=== PATIENT | female | born 1960 | race Caucasian/White ===

== ENCOUNTER → 2017-11-08 15:45 | Outpatient (CLI) | payer BC, SELFPAY ==
--- NOTE | 2017-11-08 15:50 | RAD_ITS ---
STUDY: X-RAY CHEST REASON FOR EXAM: Female, 57 years old. COPD TECHNIQUE: Frontal and lateral views of the chest. COMPARISON: 03.09.17 FINDINGS: Cervical spinal fixation hardware is noted. There is hyperinflation of the lungs consistent with chronic obstructive lung disease (COPD). There is endplate spondylosis of the vertebral body. There is no demonstrated pleural abnormality. Normal size heart. Normal mediastinum and meggan. Normal visualized pulmonary arteries. Normal visualized aortic arch and descending thoracic aorta. Normal visualized thoracic spine. Normal visualized ribs, clavicles, and shoulders. There is no demonstrated abnormality of the visualized soft tissue structures of the upper abdomen. RAD/Chest PA and Lateral IMPRESSION: COPD Electronically Signed: Konrad Reynolds MD at 19:43 EDT , Service support ,
== END ==
PROVIDERS: Family Provider Family Medicine; PCP Family Medicine; Visit Provider Family Medicine
DX: J44.9 Chronic obstructive pulmonary disease, unspecified (principal)
CPT/HCPCS: 71046

== ENCOUNTER → 2018-01-22 14:25 | Outpatient (CLI) | payer BC, SELFPAY ==
--- NOTE | 2018-01-22 14:32 | BI_ITS ---
MAMMOGRAPHY - BILATERAL SCREENING REASON FOR EXAM: Female, 57 years old. Routine annual screening examination. PERTINENT HISTORY: Non-contributory. Around breast implants. TECHNIQUE: Digital bilateral breast rodney (3D mammographic acquisition) in the CC and MLO projections. 2-D mediolateral oblique (MLO) and craniocaudad (CC) views of both breasts were obtained. CAD: Full Field Digital Mammography with Computer Added Detection was performed. COMPARISON: Comparison is made with prior study dated November 19, 2014 and July 05, 2011. FINDINGS: Breast Composition: The breasts are heterogeneously dense, which may obscure small masses. There are no dominant masses or suspicious calcifications. Stable appearance of the bilateral breast implants. No other significant abnormalities are identified. There has been no significant change since the prior study. BI/SCREENING MAMM (CAD), BILAT IMPRESSION: Stable bilateral screening mammogram. Yearly follow-up mammogram recommended. (A) ASSESSMENT CATEGORY: BIRADS Category 2: Benign. A letter regarding these results will be sent to the patient by the facility within 30 days. Approximately 10% of breast cancers are not detected by mammography. A normal mammogram should not delay biopsy of a clinically suspicious abnormality. [id number] Electronically Signed: Kavin Acosta MD at 8:17 EDT Tel [phone], Service support ,
--- NOTE | 2018-01-22 14:32 | BD_ITS ---
STUDY: DUAL ENERGY X-RAY ABSORPTIOMETRY / DXA REASON FOR EXAM: Female, 57 years old. Early menopause. Loss of height. TECHNIQUE: Bone Mineral Density (BMD) measurements of lumbar spine and bilateral hips were obtained. COMPARISON: None. FINDINGS: Lumbar Spine (L1-L4): g/cm2 (1.238) / T-score (0.5) / Z-score (1.7) Findings are suggestive of normal bone density with a low fracture risk. Left Femur Total: g/cm2 (0.818) / T-score (-1.5) / Z-score (-0.6) Left Femoral Neck: g/cm2 (0.757) / T-score (-2.0) / Z-score (-0.8) Right Femur Total: g/cm2 (0.848) / T-score (-1.3) / Z-score (-0.4) Right Femoral Neck: g/cm2 (0.804) / T-score (-1.7) / Z-score (-0.5) BD/Dexa Bone Density Study IMPRESSION: The patient is considered osteopenic as outlined below according to World [place] [employer] Organization (WHO) criteria with a moderate fracture risk. Reference Information: The T-score is the number of standard deviations above or below the standard which is normal for young adults at their peak bone mineral density. The World Health Organization (WHO) interprets the T-scores as follows: Above -1 Normal bone density Between -1 and -2.5 Osteopenia Equal to / or below -2.5 Osteoporosis As a practical clinical guideline, osteopenia may be graded as follows: Mild -1 through -1.5 Moderate -1.6 through -2.0 Severe -2.1 through -2.4 The Z-score is the number of standard deviations above or below age-matched controls. A Z-score of less than -1.5 would be considered abnormal. References: 1. NIH Osteoporosis and Related Bone Diseases http://www.osteo.org 2. International Society for Clinical Densitometry http://www.iscd.org 3. National Osteoporosis Foundation http://www.nof.org Electronically Signed: Kavin Acosta MD at 10:29 EDT Tel [phone], Service support ,
== END ==
PROVIDERS: Family Provider Family Medicine; PCP Family Medicine; Visit Provider Family Medicine
DX: Z12.31 Encounter for screening mammogram for malignant neoplasm of breast (principal); M85.80 Other specified disorders of bone density and structure, unspecified site
CPT/HCPCS: 77063; 77067; 77080

== ENCOUNTER → 2018-09-10 14:49 | Outpatient (CLI) | payer BC, SELFPAY ==
--- NOTE | 2018-09-10 15:15 | RAD_ITS ---
STUDY: X-RAY CHEST REASON FOR EXAM: Female, 58 years old. Chronic airway obstruction. TECHNIQUE: 11/08/2017 COMPARISON: None. FINDINGS: There is hyperinflation of the lungs consistent with chronic obstructive lung disease (COPD). No infiltrates or effusions. There is no demonstrated pleural abnormality. Normal size heart. Normal mediastinum and meggan. Normal visualized pulmonary arteries. Normal visualized aortic arch and descending thoracic aorta. Normal visualized thoracic spine. Previous cervical spine surgery. Normal visualized ribs, clavicles, and shoulders. There is no demonstrated abnormality of the visualized soft tissue structures of the upper abdomen. RAD/Chest PA and Lateral IMPRESSION: There are findings consistent with COPD. There is no evidence of acute chest disease. Electronically Signed: Riaz Rodriguez MD at 23:57 EST , Service support ,
[2018-09-10 18:11] LABS: Absolute Lymphocyte Count 3.15 X10^3/ul (0.83-4.51); Absolute Neutrophil Count 5.2 X10^3/uL (2.0-7.7); Basophil# 0.05 X10^3/uL; Basophil% 0.6 % (0-1); Eosinophil# 0.09 X10^3/uL; Hematocrit 41.7 % (37-47); Lymphocyte # 3.15 X10^3/ul (4.0); Lymphocyte % 34.7 % (19-41); Mean Corp Hgb Conc 33.6 g/gl (32-36); Mean Corpuscular Hgb 31.6 pg (27.0-32.0); Mean Corpuscular Volume 94.1 fL (81-99); Mean Platelet Vol. 10.9 fl (6.2-12.0); Monocyte# 0.55 X10^3/uL; Monocyte% 6.1 % (0-10); Neutrophil # 5.23 X10^3/uL (2.7-7.7); Neutrophil % 57.5 % (47-70); Platelet Count 238 K/mm3 (150-450); RBC Distribution Width CV 12.6 % (11.6-14.6); RBC Distribution Width SD 42.5 fl (35.1-43.9); Red Blood Count 4.43 M/mm3 (4.2-5.4); White Blood Count 9.1 K/mm3 (4.4-11.0)
[2018-09-10 18:17] LABS: POSITIVE COUNT NO; POSITIVE DIFFERENTIAL NO; POSITIVE MORPHOLOGY NO
[2018-09-10 19:17] LABS: Vitamin D,25 Hydroxy 43.3 ng/mL (29.95-100.01)
[2018-09-10 19:37] LABS: Anion Gap 9 (5-15); BUN 12 mg/dL (7-18); BUN/Creat Ratio 16.6 RATIO (10-20); Calcium,Total 9.3 mg/dL (8.5-10.1); Chloride 107 mmol/L (98-107); Creatinine, Serum 0.72 mg/dL (0.55-1.02); EST Glomerular Filtration Rate 87 mL/min (>60); Est Glom Filt Rate - Afr Amer 105 mL/min (>60); Glucose 88 mg/dL (74-106); Sodium Level 143 mmol/L (136-145); Thyroid Stim Hormone (TSH) 0.83 uIU/mL (0.358-3.74)
== END ==
PROVIDERS: Family Provider Family Medicine; PCP Family Medicine; Referring Provider Family Medicine; Visit Provider Family Medicine
DX: J44.9 Chronic obstructive pulmonary disease, unspecified (principal); G95.9 Disease of spinal cord, unspecified; R32 Unspecified urinary incontinence; R26.81 Unsteadiness on feet
CPT/HCPCS: 36415; 71046; 80048; 82306; 84443; 85025

== ENCOUNTER → 2018-09-28 08:56 | Outpatient (CLI) | payer BC, SELFPAY ==
--- NOTE | 2018-09-28 08:00 | CT_ITS ---
STUDY: CT CHEST WITHOUT CONTRAST REASON FOR EXAM: Female, 58 years old. Left-sided chest pain. History of prior breast augmentation. RADIATION DOSAGE (If Supplied By Facility): CTDIvol = ( 7.69 ) mGy, DLP = ( 313.35 ) mGycm TECHNIQUE: Transaxial imaging was performed without the administration of intravenous contrast material. Multiplanar coronal and sagittal images were reformatted. Individualized dose optimization techniques were used for this CT. COMPARISON: Chest, September 10, 2018. CT of the chest, December 30, 2015. FINDINGS: Lungs are hyperexpanded. There is no focal mass or infiltrate. There is no demonstrated pleural abnormality. Normal heart and pericardium. Minimal coronary artery calcifications. Normal mediastinum. Normal hilar regions. Normal unenhanced pulmonary arteries. Normal aorta arch and descending thoracic aorta. There are minimal degenerative changes of the thoracic spine without fracture. There is anterior fusion of this lower cervical spine. There are bilateral intact breast implants. There is no demonstrated abnormality of the visualized upper abdomen. CT/Chest without Contrast IMPRESSION: Hyperexpansion of the lungs without mass or infiltrate. Electronically Signed: Rolando Navarrete DO at 10:29 EST Tel [phone], Service support ,
== END ==
PROVIDERS: Family Provider Family Medicine; PCP Family Medicine; Referring Provider Family Medicine; Visit Provider Family Medicine
DX: R07.9 Chest pain, unspecified (principal)
CPT/HCPCS: 71250

== ENCOUNTER → 2018-10-09 12:59 | Outpatient (CLI) | payer BC, SELFPAY ==
--- NOTE | 2018-10-09 13:03 | ECHOCS_ITS ---
Reason For Study: Lt Sided Chest Pain Procedure This was a 2D Doppler, Color Flow transthoracic echocardiogram. Contrast injection was performed. The study was technically difficult. Exam performed in department. Left Ventricle Normal size and thickness. The estimated ejection fraction is 65-75 %. Stage 1 diastolic dysfunction. No regional wall motion abnormalities noted. Right Ventricle Normal size and thickness. Normal systolic function. Atria Normal left atrium. Normal right atrium. Normal atrial septum. Mitral Valve The mitral valve is structurally normal. No prolapse or stenosis seen. Trivial mitral valve insufficiency. Tricuspid Valve Normal tricuspid valve. Trivial tricuspid valve insufficiency. Right ventricular systolic pressure estimated to be 20 mmHg. Aortic Valve Normal aortic valve. Trisinus/trileaflet aortic valve. Pulmonic Valve Normal pulmonic valve. Great Vessels Normal aortic root. Normal arch. Normal inferior vena cava. Inferior vena cava collapse with sniff. Pericardium/Pleural No pericardial effusion. Medication Definity0.3ml given slow IV push to enhance endocardial definition. MMode/2D Measurements & Calculations LVIDd: 3.8 cm IVSd: 0.83 cm Ao root diam: 2.3 cm LVIDs: 2.1 cm LVPWd: 0.69 cm RVDd: 3.6 cm FS: 42.9 % LAV(MOD-bp): 28.1 ml LVAd ap4: 20.1 cm2 SV(MOD-sp4): 33.4 ml LAV(MOD-bp) Indexed: 18.5 ml/m2 EDV(MOD-sp4): 47.3 ml LAV(MOD-sp2): 33.5 ml EDV(sp4-el): 47.3 ml LAV(MOD-sp4): 20.1 ml LVAs ap4: 9.7 cm2 ESV(MOD-sp4): 13.9 ml ESV(sp4-el): 13.6 ml EF(MOD-sp4): 70.5 % EF(sp4-el): 71.3 % SV(sp4-el): 33.7 ml LA A4 area: 10.3 cm2 LA dimension(2D): 3.0 cm RA A4 area: 12.4 cm2 Doppler Measurements & Calculations MV E max emerson: 84.7 cm/sec Lat Peak E' Emerson: 10.6 cm/sec Med Peak E' Emerson: 10.7 cm/sec MV A max emerson: 94.4 cm/sec E/E' lat: 8.0 E/E' med: 7.9 MV E/A: 0.90 Ao V2 max: 112.4 cm/sec LV V1 max: 97.6 cm/sec PA V2 max: 96.6 cm/sec Ao max P.0 mmHg LV V1 max P.8 mmHg Ao V2 mean: 77.4 cm/sec Ao mean P.7 mmHg Ao V2 VTI: 24.7 cm TR max emerson: 199.6 cm/sec TR max P.9 mmHg Interpretation Summary The estimated ejection fraction is 65-75 %. Stage 1 diastolic dysfunction. Trivial mitral valve insufficiency. Trivial tricuspid valve insufficiency. Right ventricular systolic pressure estimated to be 20 mmHg. The study was technically difficult. There is no comparison study available. Contrast injection was performed. Ordering Physician: Wilmer Grayson Referring Physician: Wilmer Grayson Performed By: Izabel Rinaldi RDCS, RVT
== END ==
PROVIDERS: Family Provider Family Medicine; PCP Family Medicine; Referring Provider Family Medicine; Visit Provider Family Medicine
DX: R07.9 Chest pain, unspecified (principal)
CPT/HCPCS: 93306; Q9957; A4216; C8929

== ENCOUNTER → 2018-12-31 | Outpatient (CLI) | payer BC, SELFPAY ==
[2018-12-31 12:16] LABS: Absolute Lymphocyte Count 2.29 X10^3/ul (0.83-4.51); Absolute Neutrophil Count 6.1 X10^3/uL (2.0-7.7); Basophil# 0.06 X10^3/uL; Basophil% 0.7 % (0-1); Eosinophil# 0.13 X10^3/uL; Eosinophils% 1.4 % (0-5); Hematocrit 41.5 % (37-47); Hemoglobin 14.4 g/dl (12.0-15.0); Lymphocyte # 2.29 X10^3/ul (4.0); Lymphocyte % 24.9 % (19-41); Mean Corp Hgb Conc 34.7 g/gl (32-36); Mean Corpuscular Volume 92.2 fL (81-99); Mean Platelet Vol. 10.7 fl (6.2-12.0); Monocyte# 0.64 X10^3/uL; Neutrophil # 6.05 X10^3/uL (2.7-7.7); Neutrophil % 65.9 % (47-70); Platelet Count 261 K/mm3 (150-450); RBC Distribution Width CV 12.5 % (11.6-14.6); RBC Distribution Width SD 40.8 fl (35.1-43.9); White Blood Count 9.2 K/mm3 (4.4-11.0)
[2018-12-31 12:21] LABS: POSITIVE COUNT NO; POSITIVE DIFFERENTIAL NO; POSITIVE MORPHOLOGY NO
[2018-12-31 12:43] LABS: Vitamin B12 867 pg/mL (211-911)
== END | disposition home or self-care (01) ==
LOC: MFPLAB 10:12
PROVIDERS: Family Provider Family Medicine; PCP Family Medicine; Referring Provider Family Medicine; Visit Provider Family Medicine
DX: G95.9 Disease of spinal cord, unspecified (principal)
CPT/HCPCS: 36415; 82607; 85025

== ENCOUNTER → 2019-03-20 | Outpatient (CLI) | payer BC, SELFPAY ==
[2019-03-20 15:38] LABS: Absolute Lymphocyte Count 2.41 X10^3/uL (0.83-4.51); Absolute Neutrophil Count 6.2 X10^3/uL (2.0-7.7); Basophil# 0.07 X10^3/uL; Basophil% 0.7 % (0-1); Eosinophils% 1.1 % (0-5); Hematocrit 36.8 % (37-47); Hemoglobin 12.2 g/dL (12.0-15.0); Lymphocyte # 2.41 X10^3/ul (4.0); Lymphocyte % 25.3 % (19-41); Mean Corp Hgb Conc 33.2 g/dL (32-36); Mean Corpuscular Hgb 31.7 pg (27.0-32.0); Mean Corpuscular Volume 95.6 fL (81-99); Monocyte# 0.67 X10^3/uL; NRBC Flagged by Analyzer 0 % (0-5); Neutrophil # 6.24 X10^3/uL (2.7-7.7); Neutrophil % 65.6 % (47-70); Platelet Count 286 K/mm3 (150-450); RBC Distribution Width CV 12.3 % (11.6-14.6); RBC Distribution Width SD 43.1 fl (35.1-43.9); Red Blood Count 3.85 M/mm3 (4.2-5.4); White Blood Count 9.5 K/mm3 (4.4-11.0)
[2019-03-20 16:21] LABS: ALB/GLOB Ratio 1.2 RATIO (0.9-2.4); AST(SGOT) 15 U/L (15-37); Alanine Aminotransfer ALT/SGPT 27 U/L (13-56); Albumin, Serum 3.8 g/dL (3.2-5.0); Alkaline Phosphatase 84 U/L (45-117); Anion Gap 3 (5-15); BUN 9 mg/dL (7-18); BUN/Creat Ratio 13.8 RATIO (10-20); Chloride 105 mmol/L (98-107); Creatinine, Serum 0.65 mg/dL (0.55-1.02); EST Glomerular Filtration Rate 98 mL/min (>60); Est Glom Filt Rate - Afr Amer 119 mL/min (>60); Globulin 3.2 g/dL (2.2-4.2); Glucose 83 mg/dL (74-106); Potassium 4.5 mmol/L (3.5-5.1); Sodium Level 139 mmol/L (136-145)
== END | disposition home or self-care (01) ==
LOC: MFPLAB 14:28
PROVIDERS: Family Provider Family Medicine; PCP Family Medicine; Referring Provider Family Medicine; Visit Provider Family Medicine
DX: R60.0 Localized edema (principal)
CPT/HCPCS: 36415; 80053; 84443; 85025

== ENCOUNTER → 2019-08-15 13:42 | Outpatient (CLI) | payer BC, SELFPAY ==
--- NOTE | 2019-08-15 13:49 | BI_ITS ---
MAMMOGRAPHY - BILATERAL DIAGNOSTIC REASON FOR EXAM: Female, 59 years old. Bilateral breast lumps. PERTINENT HISTORY: Non-contributory. History of prior bilateral breast implants. TECHNIQUE: Digital bilateral breast rodney (3D mammographic acquisition) in the CC and MLO projections. 2-D mediolateral oblique (MLO) and craniocaudad (CC) views of both breasts were obtained. CAD: Full Field Digital Mammography with Computer Added Detection was performed. COMPARISON: Comparison is made with prior study dated January 22, 2018 and November 19, 2014. FINDINGS: Breast Composition: The breasts are heterogeneously dense, which may obscure small masses. There are no dominant masses or suspicious calcifications. Stable appearance of the bilateral breast implants. No other significant abnormalities are identified. There has been no significant change since the prior study. BI/DIAG MAMM W/CAD, BILAT IMPRESSION: Stable bilateral diagnostic mammogram. With the patient''s history of bilateral palpable abnormalities, targeted bilateral breast ultrasound is recommended. ASSESSMENT CATEGORY: BIRADS Category 0: Incomplete. Need additional imaging evaluation. A letter regarding these results will be sent to the patient by the facility within 30 days. Approximately 10% of breast cancers are not detected by mammography. A normal mammogram should not delay biopsy of a clinically suspicious abnormality. Electronically Signed: Kavin Acosta, at 15:27 EST , Service support ,
--- NOTE | 2019-08-15 15:06 | US_ITS ---
STUDY: ULTRASOUND BREAST - RIGHT REASON FOR EXAM: Female, 59 years old. History of bilateral breast lumps. TECHNIQUE: Axial and longitudinal images of the RIGHT breast were performed with a high resolution ultrasound transducer. # OF IMAGES: 19 COMPARISON: Comparison is made with prior mammogram done earlier today. FINDINGS: RIGHT Breast: There is a 1.8 cm x 1.8 cm x 0.5 cm hypoechoic well-defined nodule at the o''clock position of the breast at 3 cm from nipple. This is at the surface of the implant. IMPRESSION: There is a 1.8 cm x 1.8 signed by 0.5 cm hypoechoic nodule at the o''clock position of the breast at 3 cm from nipple. This abuts the implant. ASSESSMENT CATEGORY: BIRADS Category 2: Benign. A letter regarding these results will be sent to the patient by the facility within 30 days. Electronically Signed: Kavin Acosta, at 9:04 EST , Service support , STUDY: ULTRASOUND BREAST - LEFT REASON FOR EXAM: Female, 59 years old. Bilateral breast lumps. TECHNIQUE: Axial and longitudinal images of the LEFT breast were performed with a high resolution ultrasound transducer. # OF IMAGES: 19 COMPARISON: Comparison is made with prior mammogram done earlier today. FINDINGS: LEFT Breast: A breast implant is seen. There is a 1.8 cm x 1.8 cm x 0.4 cm hypoechoic nodule at the 4:00 position of the breast at 3 cm from nipple. This abuts the breast implant. US/Breast Limited Unilateral IMPRESSION: 1.8 cm x 1.8 sided by 0.4 cm hypoechoic nodule at the 4:00 position of the breast. This abuts the breast implant. ASSESSMENT CATEGORY: BIRADS Category 2: Benign. A letter regarding these results will be sent to the patient by the facility within 30 days. Electronically Signed: Kavin Acosta, at 9:04 EST , Service support ,
== END ==
PROVIDERS: Family Provider Family Medicine; PCP Family Medicine; Referring Provider Family Medicine; Visit Provider Family Medicine
DX: N63.10 Unspecified lump in the right breast, unspecified quadrant (principal); N63.20 Unspecified lump in the left breast, unspecified quadrant
CPT/HCPCS: 76642; 77062; 77066; G0279

== ENCOUNTER → 2020-02-12 14:48 | Outpatient (CLI) | payer BC, SELFPAY ==
[2020-02-12 16:27] LABS: Bacteria 0 SEEN /hpf (None Seen); Mucous, Urine 0 SEEN /hpf (<or=2+); Red Blood Cells-Urine 0 SEEN /hpf (0-5); White Blood Cells 0 SEEN /hpf (0-5)
[2020-02-12 17:28] LABS: Absolute Lymphocyte Count 2.41 X10^3/uL (0.83-4.51); Absolute Neutrophil Count 5.5 X10^3/uL (2.0-7.7); Basophil# 0.04 X10^3/uL; Basophil% 0.5 % (0-1); Eosinophil# 0.05 X10^3/uL; Eosinophils% 0.6 % (0-5); Hematocrit 41.7 % (37-47); Hemoglobin 13.8 g/dL (12.0-15.0); Lymphocyte # 2.41 X10^3/ul (4.0); Mean Corp Hgb Conc 33.1 g/dL (32-36); Mean Corpuscular Hgb 31.9 pg (27.0-32.0); Mean Corpuscular Volume 96.5 fL (81-99); Mean Platelet Vol. 10.8 fl (6.2-12.0); Monocyte# 0.53 X10^3/uL; Monocyte% 6.2 % (0-10); NRBC Flagged by Analyzer 0 % (0-5); Neutrophil # 5.53 X10^3/uL (2.7-7.7); Neutrophil % 64.2 % (47-70); Platelet Count 264 K/mm3 (150-450); RBC Distribution Width CV 12.3 % (11.6-14.6); RBC Distribution Width SD 43.2 fl (35.1-43.9); Red Blood Count 4.32 M/mm3 (4.2-5.4); White Blood Count 8.6 K/mm3 (4.4-11.0)
[2020-02-12 17:45] LABS: Glucose, Dipstick Normal (Normal); Ketone-Dipstick Negative (Negative); Leukocyte Esterase-Dipstick Negative /ul (Negative); Nitrite-Dipstick Negative (Negative); Occult Blood-Urine Negative /ul (Negative); Protein-Dipstick Negative (Negative); Urine Bilirubin Dipstick Negative (Negative); Urine Clarity Sl. Cloudy (Clear); Urine Urobilinogen Normal (Normal); Urine pH 6.5 (5.0 - 8.0)
[2020-02-12 17:48] LABS: Color, Urine Other (Yellow)
[2020-02-12 18:11] LABS: Squamous Epithelial Cells - UA 5-10 SEEN /hpf (5-10)
[2020-02-12 18:18] LABS: ALB/GLOB Ratio 1.6 RATIO (0.9-2.4); AST(SGOT) 28 U/L (15-37); Alanine Aminotransfer ALT/SGPT 48 U/L (13-56); Albumin, Serum 4.7 g/dL (3.2-5.0); Alkaline Phosphatase 64 U/L (45-117); Anion Gap 6 (5-15); BUN 11 mg/dL (7-18); BUN/Creat Ratio 15.2 RATIO (10-20); Calcium,Total 9.1 mg/dL (8.5-10.1); Chloride 105 mmol/L (98-107); Creatinine, Serum 0.73 mg/dL (0.55-1.02); EST Glomerular Filtration Rate 86 mL/min (>60); Est Glom Filt Rate - Afr Amer 105 mL/min (>60); Globulin 2.9 g/dL (2.2-4.2); Glucose 97 mg/dL (74-106); Potassium 3.9 mmol/L (3.5-5.1); Prealbumin 17.4 mg/dL (20.0-40.0); Protein, Total 7.6 g/dL (6.4-8.2); Rheumatoid Factor < 10.0 IU/mL (<15); Sodium Level 139 mmol/L (136-145); Thyroid Stim Hormone (TSH) 0.75 uIU/mL (0.358-3.74)
[2020-02-14 16:27] LABS: ANTINUCLEAR ANTIBODIES DIRECT Positive (Negative)
== END ==
PROVIDERS: PCP Family Medicine; Referring Provider Family Medicine; Visit Provider Family Medicine
DX: L40.50 Arthropathic psoriasis, unspecified (principal); R63.6 Underweight; F41.9 Anxiety disorder, unspecified; F17.200 Nicotine dependence, unspecified, uncomplicated
CPT/HCPCS: 36415; 80053; 81001; 84134; 84443; 85025; 86038; 86431

== ENCOUNTER → 2020-02-24 15:00 | Outpatient (CLI) | payer BC, SELFPAY ==
--- NOTE | 2020-02-24 15:07 | CT_ITS ---
STUDY: LOW DOSE CT LUNG CANCER SCREENING REASON FOR EXAM: Female, 59 years old. 46 6 pack-year smoking history. Current smoker. COPD history of cervical/uterine cancer with hysterectomy. RADIATION DOSAGE (If Supplied By Facility): CTDIvol = ( 1.7 ) mGy, DLP = ( 59.77 ) mGycm TECHNIQUE: No contrast was administered. Low dose technique was utilized (average mAS-38 and kVp 120). 1.25 mm axial source images with a slice interval of 1.25-mm were reconstructed in lung windows. 2.5 mm axial source images with a slice interval of 2.5-mm were reconstructed in lung windows. 5.0 mm axial source images with a slice interval of 5.0-mm were reconstructed in soft tissue windows. Nodule measured using lung windows on PACS and/or independent workstation with automated measurement of minimum and maximum diameter. Nodule measurement reported as average diameter rounded to the nearest whole number. Growth is defined as an increase ins size of greater than 1.5 mm. COMPARISON: CT of the chest, 09/28/2018. NODULES: Nodule #: 1 Density: Solid Lung location: Right upper lobe lobe: 0.3 cm from pleura Location in series: Series Number: 1002 Image: 67 Size - D1 x D2 mm: 1 x 1 mm: 1 mm average diameter Margin: Smooth Shape: Round Calcification: Yes Fat: No Temporal comparison: Stable Nodule #: 2 Density: Solid Lung location: Right lower lobe: 0.8 cm from pleura Location in series: Series Number: 1002 Image: 87 Size - D1 x D2 mm: 3 x 4 mm: 4 mm average diameter Margin: Ill-defined Shape: Round Calcification: No Fat: No Temporal comparison: Not seen Total lung nodules (excluding granulomas): 1 Emphysema: There is diffuse emphysematous changes of the lungs. Endobronchial lesion: None Aorta: Coronary arteries: Mild coronary artery calcifications. Heart: Normal in size Pulmonary artery: Normal Mediastinal nodes: None Other chest and abdominal findings: Degenerative changes of the thoracic spine. Intact breast implants. CT/Low Dose CT Lung Screening IMPRESSION: Lung-RADS category 2 - Continue annual screening with LDCT in 12 months. IMPORTANT NOTES FOR USE: ACR Lung-RADS Version 1.0 Assessment Categories Release Date: November 24, 2013 Category: Coded 0-4 bases on nodule(s) with highest degree of suspicion. Negative screen is defined as categories 1 and 2; a positive screen is defined as categories 3 and 4. Category 3 and 4A nodules that are unchanged on interval CT should be coded as category 2, and individuals returned to screening in 12 months. Category 4X: Category 3 or 4 nodules with additional imaging findings that increase the suspicion of lung cancer, such as spiculation, GGN that doubles in size in 1 year, enlarged lymph notes, etc. Category Modifiers: S (significant finding unrelated to lung cancer) and C (prior history of treated lung cancer) may be added to the 0-4 Lung-RADS Electronically Signed: Rolando Navarrete DO at 20:12 EDT Tel [phone], Service support ,
== END ==
PROVIDERS: PCP Family Medicine; Referring Provider Family Medicine; Visit Provider Family Medicine
DX: J44.9 Chronic obstructive pulmonary disease, unspecified (principal); F17.200 Nicotine dependence, unspecified, uncomplicated
CPT/HCPCS: G0297

== ENCOUNTER → 2020-02-25 14:14 | Outpatient (CLI) | payer BC, SELFPAY ==
--- NOTE | 2020-02-25 14:18 | RAD_ITS ---
STUDY: X-RAY - PELVIS AND BILATERAL HIPS REASON FOR EXAM: Female, 60 years old. Pain in lower back and hips for a long time now worsening. No known recent injury. TECHNIQUE: AP view of the pelvis.? 2 views of the right hip, and 2 views of the left hip were obtained. COMPARISON: Pelvis and left hip, 03/09/2017 FINDINGS: There is a non-specific bowel gas pattern. Normal visualized soft tissue structures. Again seen are suture anchors along the right pelvic brim suggesting prior herniorrhaphy. Normal bilateral iliac wings, sacroiliac joints and visualized sacrum. Normal bilateral superior and inferior pubic rami. Normal pubic symphysis. Normal bilateral ischial tuberosities. Normal visualized right femoral head. Normal right acetabulum. Normal right hip joint. Normal visualized left femoral head. Normal left acetabulum. Normal left hip joint. RAD/Hips B/L min 2 views w/ Pelvis IMPRESSION: Normal x-ray examination of the pelvis and bilateral hips. Electronically Signed: Rolando Navarrete DO at 16:03 EDT Tel [phone], Service support ,
--- NOTE | 2020-02-25 14:25 | RAD_ITS ---
STUDY: X-RAY - LUMBAR SPINE REASON FOR EXAM: Female, 60 years old. Long-standing lower back and hip pain, now worsening. TECHNIQUE: 5 view(s) of the lumbar spine were obtained. COMPARISON: MRI of the lumbar spine, 03/10/2017. FINDINGS: Normal lumbar lordosis. There is no substantial scoliosis. There is a normal alignment of the vertebrae. Normal vertebral bodies and endplates. There is multi-level degenerative disc disease with multi-level disc space narrowing. There is no evidence of acute fracture or loss of vertebral axial height. There is mild degenerative facet disease. There is no demonstrated spondylolysis of the pars interarticulares. The soft tissue structures are unremarkable. RAD/L/S Spine Min 4 Views IMPRESSION: Degenerative disc disease stable when compared to the previous examination. Electronically Signed: Rolando Navarrete DO at 16:03 EDT Tel [phone], Service support ,
[2020-02-25 18:15] LABS: Prealbumin 19.6 mg/dL (20.0-40.0)
== END ==
PROVIDERS: PCP Family Medicine; Referring Provider Family Medicine; Visit Provider Family Medicine
DX: M54.9 Dorsalgia, unspecified (principal); E46 Unspecified protein-calorie malnutrition; M25.552 Pain in left hip
CPT/HCPCS: 36415; 72110; 73521; 84134

== ENCOUNTER → 2020-03-10 13:59 | Outpatient (CLI) | payer BC, SELFPAY ==
--- NOTE | 2020-03-10 14:11 | ECHOD_ITS ---
Reason For Study: SOB Procedure This was a 2D Doppler, Color Flow transthoracic echocardiogram. Exam performed in department. Left Ventricle Normal size and thickness. The estimated ejection fraction is 65-75 %. Stage 1 diastolic dysfunction. No regional wall motion abnormalities noted. Right Ventricle Normal size and thickness. Normal systolic function. Atria Normal left atrium. Normal right atrium. Normal atrial septum. Mitral Valve The mitral valve is structurally normal. No prolapse or stenosis seen. Tricuspid Valve Normal tricuspid valve. Trivial tricuspid valve insufficiency. Right ventricular systolic pressure estimated to be 22 mmHg. Aortic Valve Normal aortic valve. Trisinus/trileaflet aortic valve. Pulmonic Valve Normal pulmonic valve. Great Vessels Normal aortic root. Normal arch. Normal inferior vena cava. Inferior vena cava collapse with sniff. Pericardium/Pleural No pericardial effusion. MMode/2D Measurements & Calculations LVIDd: 3.2 cm IVSd: 0.90 cm Ao root diam: 2.9 cm LVIDs: 1.9 cm LVPWd: 0.94 cm RVDd: 2.4 cm FS: 41.0 % LAV(MOD-sp4): 29.4 ml LA A4 area: 12.8 cm2 LA dimension(2D): 2.6 cm RA A4 area: 7.4 cm2 Doppler Measurements & Calculations MV E max emerson: 59.7 cm/sec Lat Peak E' Emerson: 7.4 cm/sec Med Peak E' Emerson: 5.9 cm/sec MV A max emerson: 77.5 cm/sec E/E' lat: 8.0 E/E' med: 10.0 MV E/A: 0.77 Ao V2 max: 126.7 cm/sec LV V1 max: 104.1 cm/sec PA V2 max: 83.7 cm/sec Ao max P.4 mmHg LV V1 max P.3 mmHg TR max emerson: 203.0 cm/sec TR max P.5 mmHg Interpretation Summary The estimated ejection fraction is 65-75 %. Stage 1 diastolic dysfunction. Right ventricular systolic pressure estimated to be 22 mmHg. Compared to echo report dated 10/09/2018, no appreciable changes noted. Ordering Physician: Wilmer Diaz Referring Physician: Wilmer Diaz Performed By: Laura Silver RDCS
== END ==
PROVIDERS: PCP Family Medicine; Referring Provider Family Medicine; Visit Provider Family Medicine
DX: R06.02 Shortness of breath (principal)
CPT/HCPCS: 93306

== ENCOUNTER → 2020-04-12 10:39 | Outpatient (CLI) | payer BC, SELFPAY ==
--- NOTE | 2020-04-12 10:43 | RAD_ITS ---
STUDY: X-RAY CHEST REASON FOR EXAM: Female, 60 years old. HIGH RISK MEDS -- HX PSORIATIC ARTHROPATHY, PSORIASIS -- COPD, ANXIETY TECHNIQUE: Frontal and lateral views COMPARISON: 09/10/2018 FINDINGS: The lungs are clear and expanded. There is no demonstrated pleural abnormality. Normal size heart. Normal mediastinum and meggan. Normal visualized pulmonary arteries. Normal visualized aortic arch and descending thoracic aorta. Normal visualized thoracic spine. Surgical fusion of lower cervical levels. Normal visualized ribs, clavicles, and shoulders. There is no demonstrated abnormality of the visualized soft tissue structures of the upper abdomen. RAD/Chest PA and Lateral IMPRESSION: Normal x-ray examination of the chest. Electronically Signed: Travis Toussaint DO at 23:48 EDT Tel [phone], Service support ,
[2020-04-12 12:20] LABS: Erythrocyte Sedimentation Rate 3 mm/hr (0-30)
[2020-04-12 12:21] LABS: Absolute Lymphocyte Count 2.29 X10^3/uL (0.83-4.51); Absolute Neutrophil Count 5.2 X10^3/uL (2.0-7.7); Basophil# 0.07 X10^3/uL; Basophil% 0.9 % (0-1); Eosinophil# 0.09 X10^3/uL; Eosinophils% 1.1 % (0-5); Hematocrit 41.7 % (37-47); Hemoglobin 13.8 g/dL (12.0-15.0); Lymphocyte # 2.29 X10^3/ul (4.0); Mean Corp Hgb Conc 33.1 g/dL (32-36); Mean Corpuscular Hgb 31.6 pg (27.0-32.0); Mean Corpuscular Volume 95.4 fL (81-99); Mean Platelet Vol. 9.9 fl (6.2-12.0); Monocyte# 0.49 X10^3/uL; NRBC Flagged by Analyzer 0 % (0-5); Neutrophil # 5.23 X10^3/uL (2.7-7.7); Neutrophil % 63.9 % (47-70); Platelet Count 277 K/mm3 (150-450); RBC Distribution Width CV 12.2 % (11.6-14.6); RBC Distribution Width SD 42.9 fl (35.1-43.9); Red Blood Count 4.37 M/mm3 (4.2-5.4); White Blood Count 8.2 K/mm3 (4.4-11.0)
[2020-04-12 13:14] LABS: ALB/GLOB Ratio 1.6 RATIO (0.9-2.4); AST(SGOT) 23 U/L (15-37); Alanine Aminotransfer ALT/SGPT 38 U/L (13-56); Albumin, Serum 4.5 g/dL (3.2-5.0); Alkaline Phosphatase 69 U/L (45-117); Anion Gap 5 (5-15); BUN 14 mg/dL (7-18); BUN/Creat Ratio 19.2 RATIO (10-20); CRP < 2.90 mg/L (0.0-3.0); Calcium,Total 9.3 mg/dL (8.5-10.1); Chloride 103 mmol/L (98-107); Creatinine, Serum 0.73 mg/dL (0.55-1.02); EST Glomerular Filtration Rate 86 mL/min (>60); Est Glom Filt Rate - Afr Amer 104 mL/min (>60); Globulin 2.9 g/dL (2.2-4.2); Glucose 98 mg/dL (74-106); Potassium 4.2 mmol/L (3.5-5.1); Protein, Total 7.4 g/dL (6.4-8.2); Sodium Level 140 mmol/L (136-145)
[2020-04-12 13:21] LABS: Hepatitis B Surface Antibody Non-Reactive; Hepatitis B Surface Antigen Non-Reactive (Nonreactive); Hepatitis C Antibody Non-Reactive (Nonreactive)
[2020-04-15 03:07] LABS: QNTFERON TB Mitogen Value > 10.00 IU/mL (.); QNTFERON TB Nil Value 0.01 IU/mL (.); QNTFERON TB1+ Ag Value 0.12 IU/mL (.); QNTFERON TB2+ Ag Value 0.09 IU/mL (.)
[2020-04-15 09:12] LABS: Hepatitis B Core AB IgM Negative (Negative); QNTIFERON TB Positive Criteria Negative (Negative)
== END ==
PROVIDERS: PCP Family Medicine; Referring Provider Internal Medicine Rheumatology; Visit Provider Internal Medicine Rheumatology
DX: L40.59 Other psoriatic arthropathy (principal); L40.8 Other psoriasis; F32.9 Major depressive disorder, single episode, unspecified; J44.9 Chronic obstructive pulmonary disease, unspecified; M50.30 Other cervical disc degeneration, unspecified cervical region; M47.897 Other spondylosis, lumbosacral region; F41.9 Anxiety disorder, unspecified
CPT/HCPCS: 36415; 71046; 80053; 85025; 85652; 86140; 86480; 86705; 86706; 86803; 87340

== ENCOUNTER → 2020-05-26 15:01 | Outpatient (CLI) | payer BC, SELFPAY ==
[2020-05-26 18:02] LABS: Absolute Lymphocyte Count 2.47 X10^3/uL (0.83-4.51); Absolute Neutrophil Count 4.5 X10^3/uL (2.0-7.7); Basophil# 0.08 X10^3/uL; Eosinophil# 0.09 X10^3/uL; Eosinophils% 1.2 % (0-5); Hematocrit 40.2 % (37-47); Hemoglobin 13.1 g/dL (12.0-15.0); Lymphocyte # 2.47 X10^3/ul (4.0); Lymphocyte % 32.3 % (19-41); Mean Corp Hgb Conc 32.6 g/dL (32-36); Mean Corpuscular Hgb 31.3 pg (27.0-32.0); Mean Corpuscular Volume 95.9 fL (81-99); Mean Platelet Vol. 10.2 fl (6.2-12.0); Monocyte# 0.45 X10^3/uL; Monocyte% 5.9 % (0-10); NRBC Flagged by Analyzer 0 % (0-5); Neutrophil # 4.54 X10^3/uL (2.7-7.7); Neutrophil % 59.3 % (47-70); Platelet Count 286 K/mm3 (150-450); RBC Distribution Width CV 12.3 % (11.6-14.6); RBC Distribution Width SD 43.2 fl (35.1-43.9); Red Blood Count 4.19 M/mm3 (4.2-5.4); White Blood Count 7.7 K/mm3 (4.4-11.0)
[2020-05-26 18:20] LABS: ALB/GLOB Ratio 1.6 RATIO (0.9-2.4); AST(SGOT) 26 U/L (15-37); Alanine Aminotransfer ALT/SGPT 43 U/L (13-56); Albumin, Serum 4.6 g/dL (3.2-5.0); Alkaline Phosphatase 63 U/L (45-117); Anion Gap 6 (5-15); BUN 13 mg/dL (7-18); BUN/Creat Ratio 19.1 RATIO (10-20); Calcium,Total 9.2 mg/dL (8.5-10.1); Chloride 103 mmol/L (98-107); Creatinine, Serum 0.68 mg/dL (0.55-1.02); EST Glomerular Filtration Rate 93 mL/min (>60); Est Glom Filt Rate - Afr Amer 112 mL/min (>60); Globulin 2.9 g/dL (2.2-4.2); Glucose 82 mg/dL (74-106); Potassium 3.5 mmol/L (3.5-5.1); Protein, Total 7.5 g/dL (6.4-8.2); Sodium Level 140 mmol/L (136-145)
== END ==
PROVIDERS: PCP Family Medicine; Referring Provider Internal Medicine Rheumatology; Visit Provider Internal Medicine Rheumatology
DX: L40.59 Other psoriatic arthropathy (principal); L40.8 Other psoriasis; F32.9 Major depressive disorder, single episode, unspecified; M50.30 Other cervical disc degeneration, unspecified cervical region; M47.897 Other spondylosis, lumbosacral region; F41.9 Anxiety disorder, unspecified
CPT/HCPCS: 36415; 80053; 85025

== ENCOUNTER → 2020-08-24 13:10 | Outpatient (CLI) | payer BC, SELFPAY ==
[2020-08-05 09:11] VITALS: BMI 19.4
--- NOTE | 2020-08-24 13:11 | MRI_ITS ---
STUDY: MRI CERVICAL SPINE WITH AND WITHOUT CONTRAST REASON FOR EXAM: Female, 60 years old. Spinal stenosis, neck pain. 2 prior cervical spine surgeries TECHNIQUE: Standardized fat and water weighted pulse sequences were obtained in the sagittal and axial following administration of 10ml Dotarem via IV. COMPARISON: Post myelogram CT of the cervical spine 03/03/2011. FINDINGS: Normal foramen magnum and brainstem-cervical cord junction. Normal craniovertebral junction. Normal anterior atlantoaxial articulation. Normal odontoid process. The cervical lordosis has moved up in the upper cervical spine due to multilevel anterior fusion from C3 down to C7. 6 suboptimal visualization of the vertebral bodies of C3 down to C7 due to metallic plate and transfixing screws. Normal C2 vertebral body and the the vertebral bodies of T1 down to T6. C2-3: Normal endplates. Normal disc height, signal and morphology. Normal central canal and intervertebral neural foramina. C3-4: Metallic plate with transfixing screws. Normal central canal and intervertebral neural foramina. C4-5: Metallic plate with transfixing screws. Normal central canal and intervertebral neural foramina. C5-6: Metallic plate with transfixing screws. Normal central canal and intervertebral neural foramina. C6-7: Metallic plate with transfixing screws. Normal central canal and intervertebral neural foramina. C7-T1: Normal T1 superior endplate. Normal visualized portion of the C7 inferior endplate. Mild disc space height narrowing. Normal central canal and intervertebral neural foramina. T1-T2: Normal T1 inferior endplate. Slight anterior wedging of T2 superior endplate is presumably from remote injury. Normal disc height. Small posterior bulging disc. Normal central canal and intervertebral neural foramina. T2-T3: (Sagittal only). Normal T2 inferior endplate. Minimal anterior wedging of the T3 superior endplate is presumably from remote injury. Normal disc height, signal and morphology. Normal central canal and intervertebral neural foramina. T3-T4: (Sagittal only). Normal T3 inferior endplate. Slight anterior wedging of T4 superior endplate is presumably from remote injury. Normal disc height, signal and morphology. Normal central canal and intervertebral neural foramina. T4-T5, T5-T6 and T6-T7: (Sagittal only). Normal endplates. Normal disc height, signal and morphology. Normal central canal and intervertebral neural foramina. Normal cervical cord. Normal upper thoracic spinal cord. Normal visualized soft tissue structures. Following IV contrast administration, there are no suspicious enhancing lesions intradurally and extradurally. MRI/Spine Cervical W/WO Contrast IMPRESSION: 1. No MRI evidence of cervical extruded disc fragment, spinal stenosis or cervical nerve root displacement. 2. Minimal anterior wedging of the superior endplates of T2, T3 and T4. They are presumably from remote injury. 3. Normal cervical spinal cord and upper thoracic spinal cord. 4. No abnormal enhancing lesions intradurally and extradurally. Electronically Signed: Tucker Stevens MD at 16:02 EST , Service support ,
[2020-08-24 14:01] LABS: CREATININE FINGERSTICK 0.9 mg/dL (0.55-1.02)
== END ==
PROVIDERS: PCP Family Medicine; Referring Provider Psychiatry & Neurology Neurology; Visit Provider Psychiatry & Neurology Neurology
DX: M48.02 Spinal stenosis, cervical region (principal)
CPT/HCPCS: 72156; A9575

== ENCOUNTER → 2020-09-13 09:52 | Outpatient (CLI) | payer BC, SELFPAY ==
[2020-08-05 09:11] VITALS: BMI 19.4
--- NOTE | 2020-09-13 11:46 | NEURO ---
NCS and/or EMG Patient Report Ordering Doctor: Jonnathan Akers DATE OF SERVICE: 09/13/20 Indication: Several years of balance issues. No diffuse sensory loss. Intermittent paresthesia involving the plantar surface of the right toes. Evaluate for peripheral polyneuropathy. Findings: Nerve conduction studies were performed in the right and left lower extremities. The right peroneal motor study recording the extensor digitorum brevis showed a borderline amplitude, normal distal latency and normal conduction velocity. No conduction block or focal slowing was present across the fibular neck. The right tibial motor study recording the abductor hallucis brevis showed a normal amplitude, normal distal latency and normal conduction velocity. Right sural sensory response showed a normal amplitude and conduction velocity. Right superficial peroneal sensory response showed a normal amplitude and conduction velocity. Right medial plantar sensory response showed a normal amplitude and conduction velocity. Right lateral plantar sensory response showed an absent response. The left peroneal motor study recording the extensor digitorum brevis showed a normal amplitude, normal distal latency and normal conduction velocity. No conduction block or focal slowing was present across the fibular neck. The left tibial motor study recording the abductor hallucis brevis showed a normal amplitude, normal distal latency and normal conduction velocity. Left sural sensory response showed a normal amplitude and conduction velocity. Left superficial peroneal sensory response showed a normal amplitude and conduction velocity. Left medial plantar sensory response showed a normal amplitude and conduction velocity. Left lateral plantar sensory response showed an absent response. Needle EMG of the right lower extremity muscles was performed. No denervation was present in any muscle. Motor unit morphology, activation, and recruitment patterns were normal. Impression: This is a normal study. There is no electrophysiologic evidence of peripheral neuropathy. In addition, there was no electrophysiologic lumbar radiculopathy in the right lower extremity. The absent lateral plantar responses are likely technical in nature as they are often difficult to record in healthy individuals and the patient does not note sensory loss within this distribution. Please note: routine nerve conduction studies and needle EMG assess the larger, myelinated motor and sensory fibers. Thus, routine electrodiagnostic studies may be insensitive in detecting a peripheral neuropathy restricted to small fibers alone (i.e., pain, temperature and autonomic fibers). However, most peripheral neuropathies with predominantly small fiber large dysfunction will also involve large fibers to a lesser extent, and will demonstrate abnormalities on electrodiagnostic studies. Thus, clinical correlation is required in the interpretation of this negative electrodiagnostic study if an isolated small fiber neuropathy is considered. Ankit Patten D.O.
== END ==
PROVIDERS: PCP Family Medicine; Referring Provider Psychiatry & Neurology Neurology; Visit Provider Psychiatry & Neurology Neurology
DX: G62.9 Polyneuropathy, unspecified (principal)
CPT/HCPCS: 95886; 95913

== ENCOUNTER → 2020-10-21 10:35 | Outpatient (CLI) | payer BC, SELFPAY ==
[2020-10-21 13:40] LABS: ALB/GLOB Ratio 1.5 RATIO (0.9-2.4); AST(SGOT) 23 U/L (15-37); Alanine Aminotransfer ALT/SGPT 36 U/L (13-56); Albumin, Serum 4.5 g/dL (3.2-5.0); Alkaline Phosphatase 64 U/L (45-117); Anion Gap 2 (5-15); BUN 15 mg/dL (7-18); BUN/Creat Ratio 21.1 RATIO (10-20); Calcium,Total 9.6 mg/dL (8.5-10.1); Chloride 105 mmol/L (98-107); Creatinine, Serum 0.71 mg/dL (0.55-1.02); EST Glomerular Filtration Rate 88 mL/min (>60); Est Glom Filt Rate - Afr Amer 107 mL/min (>60); Glucose 85 mg/dL (74-106); Potassium 4.3 mmol/L (3.5-5.1); Prealbumin 22.4 mg/dL (20.0-40.0); Protein, Total 7.5 g/dL (6.4-8.2); Sodium Level 141 mmol/L (136-145)
== END ==
PROVIDERS: PCP Family Medicine; Referring Provider Family Medicine; Visit Provider Family Medicine
DX: E46 Unspecified protein-calorie malnutrition (principal)
CPT/HCPCS: 36415; 80053; 84134

== ENCOUNTER → 2021-01-03 15:27 | Outpatient (CLI) | payer BC, SELFPAY ==
[2020-12-06 14:56] VITALS: BMI 19.4
--- NOTE | 2021-01-03 15:49 | MRI_ITS ---
STUDY: MRI LUMBAR SPINE WITHOUT CONTRAST REASON FOR EXAM: Female, 60 years old. Low back pain; left lumbar radiculopathy; gait d/o TECHNIQUE: Standardized fat and water weighted pulse sequences were obtained in the sagittal and axial planes. COMPARISON: X-ray 02/25/2020, MRI 03/10/2017 FINDINGS: T12-L1: No change in the small central left paracentral disc protrusion with a small central superiorly and inferiorly extending extrusion which produces mild spinal stenosis but no neural foraminal stenosis. Normal lumbar lordosis. There is no substantial scoliosis. Normal conus medullaris that terminates at the L1/L2. Acute microtrabecular stress reaction of the right pedicle of L5. L1-2: No change in the mild broad disc protrusion which produces mild spinal stenosis but no neural foraminal stenosis. L2-3: Normal endplates. Normal disc height, hydration and morphology. Normal bilateral facet joints. Normal central canal and bilateral lateral recesses. Normal bilateral intervertebral neural foramina. L3-4: Mild bilateral facet hypertrophy and moderate ligament flavum hypertrophy. No change in mild broad disc protrusion which produces mild spinal stenosis and mild bilateral neural foraminal stenosis. L4-5: Worsening bilateral facet hypertrophy which is now moderate with moderate ligament flavum hypertrophy. Mild broad disc protrusion but now with moderate spinal stenosis and moderate bilateral lateral recess stenosis with abutment of the L5 nerve roots bilaterally and mild bilateral neural foraminal stenosis. L5-S1: Normal endplates. Normal disc height, hydration and morphology. Normal bilateral facet joints. Normal central canal and bilateral lateral recesses. Normal bilateral intervertebral neural foramina. Normal visualized sacral ala. Normal visualized paraspinous soft tissue structures. MRI/Spine Lumbar (Routine) IMPRESSION: Worsening degenerative disc disease at L4/L5 as described above. Electronically Signed: Royal Cope MD at 6:54 EDT Tel , Service support ,
== END ==
PROVIDERS: PCP Family Medicine; Referring Provider Psychiatry & Neurology Neurology; Visit Provider Psychiatry & Neurology Neurology
DX: M48.061 Spinal stenosis, lumbar region without neurogenic claudication (principal); M54.16 Radiculopathy, lumbar region; R26.9 Unspecified abnormalities of gait and mobility; R42 Dizziness and giddiness
CPT/HCPCS: 72148

== ENCOUNTER → 2021-01-06 14:09 | Outpatient (CLI) | payer BC, SELFPAY ==
[2021-01-04 14:03] VITALS: BMI 18.5
[2021-01-06 18:02] LABS: ALB/GLOB Ratio 1.5 RATIO (0.9-2.4); AST(SGOT) 23 U/L (15-37); Alanine Aminotransfer ALT/SGPT 38 U/L (13-56); Albumin, Serum 4.3 g/dL (3.2-5.0); Alkaline Phosphatase 67 U/L (45-117); Anion Gap 4 (5-15); BUN 14 mg/dL (7-18); BUN/Creat Ratio 19.2 RATIO (10-20); Calcium,Total 9.1 mg/dL (8.5-10.1); Chloride 105 mmol/L (98-107); Creatinine, Serum 0.73 mg/dL (0.55-1.02); EST Glomerular Filtration Rate 86 mL/min (>60); Est Glom Filt Rate - Afr Amer 104 mL/min (>60); Globulin 2.8 g/dL (2.2-4.2); Glucose 101 mg/dL (74-106); Potassium 4.1 mmol/L (3.5-5.1); Prealbumin 20.6 mg/dL (20.0-40.0); Protein, Total 7.1 g/dL (6.4-8.2); Sodium Level 141 mmol/L (136-145)
== END ==
PROVIDERS: PCP Family Medicine; Referring Provider Family Medicine; Visit Provider Family Medicine
DX: E46 Unspecified protein-calorie malnutrition (principal)
CPT/HCPCS: 36415; 80053; 84134

== ENCOUNTER → 2021-01-24 12:03 | Outpatient (CLI) | payer BC, SELFPAY ==
[2021-01-24 11:14] VITALS: BMI 18.5
[2021-01-24 15:23] LABS: Absolute Lymphocyte Count 1.77 X10^3/uL (0.83-4.51); Absolute Neutrophil Count 5.7 X10^3/uL (2.0-7.7); Basophil# 0.05 X10^3/uL; Basophil% 0.6 % (0-1); Eosinophil# 0.03 X10^3/uL; Eosinophils% 0.4 % (0-5); Hematocrit 38.8 % (37-47); Lymphocyte # 1.77 X10^3/ul (0.83-4.51); Lymphocyte % 21.9 % (19-41); Mean Corp Hgb Conc 33.5 g/dL (32-36); Mean Corpuscular Hgb 32.2 pg (27.0-32.0); Mean Platelet Vol. 10.7 fl (6.2-12.0); Monocyte# 0.52 X10^3/uL; Monocyte% 6.4 % (0-10); NRBC Flagged by Analyzer 0 % (0-5); Neutrophil # 5.68 X10^3/uL (2.7-7.7); Neutrophil % 70.3 % (47-70); Platelet Count 240 K/mm3 (150-450); RBC Distribution Width CV 12.1 % (11.6-14.6); RBC Distribution Width SD 42.5 fl (35.1-43.9); Red Blood Count 4.04 M/mm3 (4.2-5.4); White Blood Count 8.1 K/mm3 (4.4-11.0)
[2021-01-24 15:40] LABS: ALB/GLOB Ratio 1.7 RATIO (0.9-2.4); AST(SGOT) 29 U/L (15-37); Alanine Aminotransfer ALT/SGPT 45 U/L (13-56); Albumin, Serum 4.3 g/dL (3.2-5.0); Alkaline Phosphatase 59 U/L (45-117); Anion Gap 5 (5-15); BUN 14 mg/dL (7-18); BUN/Creat Ratio 19.6 RATIO (10-20); Calcium,Total 8.8 mg/dL (8.5-10.1); Chloride 104 mmol/L (98-107); Creatinine, Serum 0.72 mg/dL (0.55-1.02); EST Glomerular Filtration Rate 88 mL/min (>60); Est Glom Filt Rate - Afr Amer 106 mL/min (>60); Globulin 2.6 g/dL (2.2-4.2); Glucose 101 mg/dL (74-106); Protein, Total 6.9 g/dL (6.4-8.2); Sodium Level 140 mmol/L (136-145)
== END ==
PROVIDERS: PCP Family Medicine; Referring Provider Internal Medicine Rheumatology; Visit Provider Internal Medicine Rheumatology
DX: L40.59 Other psoriatic arthropathy (principal); Z79.899 Other long term (current) drug therapy; L40.8 Other psoriasis; F32.9 Major depressive disorder, single episode, unspecified; M50.30 Other cervical disc degeneration, unspecified cervical region; M47.897 Other spondylosis, lumbosacral region; F41.9 Anxiety disorder, unspecified
CPT/HCPCS: 36415; 80053; 85025

== ENCOUNTER → 2021-04-08 13:57 | Outpatient (CLI) | payer BC, SELFPAY ==
[2021-04-08 14:09] LABS: Bacteria 0 SEEN /hpf (None Seen); Mucous, Urine 0 SEEN /hpf (<or=2+); Red Blood Cells-Urine 0 SEEN /hpf (0-5); Squamous Epithelial Cells - UA 0 SEEN /hpf (5-10); White Blood Cells 0 SEEN /hpf (0-5)
[2021-04-08 15:40] LABS: Absolute Lymphocyte Count 2.48 X10^3/uL (0.83-4.51); Absolute Neutrophil Count 5.8 X10^3/uL (2.0-7.7); Basophil# 0.06 X10^3/uL; Basophil% 0.7 % (0-1); Eosinophil# 0.05 X10^3/uL; Eosinophils% 0.6 % (0-5); Hematocrit 41.5 % (37-47); Hemoglobin 13.9 g/dL (12.0-15.0); Lymphocyte # 2.48 X10^3/ul (0.83-4.51); Lymphocyte % 27.7 % (19-41); Mean Corp Hgb Conc 33.5 g/dL (32-36); Mean Corpuscular Hgb 31.4 pg (27.0-32.0); Mean Corpuscular Volume 93.7 fL (81-99); Mean Platelet Vol. 10.4 fl (6.2-12.0); Monocyte# 0.51 X10^3/uL; Monocyte% 5.7 % (0-10); NRBC Flagged by Analyzer 0 % (0-5); Neutrophil # 5.83 X10^3/uL (2.7-7.7); Platelet Count 271 K/mm3 (150-450); RBC Distribution Width CV 11.9 % (11.6-14.6); RBC Distribution Width SD 41.5 fl (35.1-43.9); Red Blood Count 4.43 M/mm3 (4.2-5.4)
[2021-04-08 15:53] LABS: Color, Urine Yellow (Yellow); Glucose, Dipstick Normal (Normal); Ketone-Dipstick Negative (Negative); Leukocyte Esterase-Dipstick Negative /ul (Negative); Nitrite-Dipstick Negative (Negative); Occult Blood-Urine 10 /ul (Negative); Protein-Dipstick Negative (Negative); Urine Bilirubin Dipstick Negative (Negative); Urine Clarity Clear (Clear); Urine Urobilinogen Normal (Normal)
[2021-04-08 16:20] LABS: Amorphous Sediment 1+
[2021-04-08 16:55] LABS: ALB/GLOB Ratio 1.5 RATIO (0.9-2.4); AST(SGOT) 24 U/L (15-37); Alanine Aminotransfer ALT/SGPT 43 U/L (13-56); Albumin, Serum 4.4 g/dL (3.2-5.0); Alkaline Phosphatase 60 U/L (45-117); Anion Gap 5 (5-15); BUN 14 mg/dL (7-18); BUN/Creat Ratio 21.5 RATIO (10-20); Calcium,Total 9.2 mg/dL (8.5-10.1); Chloride 104 mmol/L (98-107); Creatinine, Serum 0.65 mg/dL (0.55-1.02); EST Glomerular Filtration Rate 98 mL/min (>60); Est Glom Filt Rate - Afr Amer 118 mL/min (>60); Glucose 91 mg/dL (74-106); Potassium 4.2 mmol/L (3.5-5.1); Prealbumin 18.6 mg/dL (20.0-40.0); Protein, Total 7.4 g/dL (6.4-8.2); Sodium Level 140 mmol/L (136-145)
== END ==
PROVIDERS: PCP Family Medicine; Referring Provider Family Medicine; Visit Provider Family Medicine
DX: E46 Unspecified protein-calorie malnutrition (principal); F17.200 Nicotine dependence, unspecified, uncomplicated; Z20.822 Contact with and (suspected) exposure to COVID-19
CPT/HCPCS: 36415; 80053; 81001; 84134; 85025

== ENCOUNTER 2021-08-10 14:06 | Outpatient (CLI) | payer BC, SELFPAY ==
[2021-08-10 14:09] LABS: Bacteria 0 SEEN /hpf (None Seen); Mucous, Urine 0 SEEN /hpf (<or=2+); Red Blood Cells-Urine 0 SEEN /hpf (0-5); Squamous Epithelial Cells - UA 0 SEEN /hpf (5-10); White Blood Cells 0 SEEN /hpf (0-5)
[2021-08-10 15:23] LABS: Absolute Lymphocyte Count 2.21 X10^3/uL (0.83-4.51); Absolute Neutrophil Count 5.7 X10^3/uL (2.0-7.7); Basophil# 0.08 X10^3/uL; Basophil% 0.9 % (0-1); Eosinophil# 0.07 X10^3/uL; Eosinophils% 0.8 % (0-5); Hematocrit 41.1 % (37-47); Lymphocyte # 2.21 X10^3/ul (0.83-4.51); Lymphocyte % 25.7 % (19-41); Mean Corp Hgb Conc 34.1 g/dL (32-36); Mean Corpuscular Hgb 32.5 pg (27.0-32.0); Mean Corpuscular Volume 95.4 fL (81-99); Mean Platelet Vol. 10.1 fl (6.2-12.0); Monocyte# 0.51 X10^3/uL; Monocyte% 5.9 % (0-10); NRBC Flagged by Analyzer 0 % (0-5); Neutrophil # 5.72 X10^3/uL (2.7-7.7); Neutrophil % 66.5 % (47-70); Platelet Count 244 K/mm3 (150-450); RBC Distribution Width CV 12.3 % (11.6-14.6); RBC Distribution Width SD 43.5 fl (35.1-43.9); Red Blood Count 4.31 M/mm3 (4.2-5.4); White Blood Count 8.6 K/mm3 (4.4-11.0)
[2021-08-10 15:25] LABS: Color, Urine Yellow (Yellow); Glucose, Dipstick Normal (Normal); Ketone-Dipstick Negative (Negative); Leukocyte Esterase-Dipstick Negative /ul (Negative); Nitrite-Dipstick Negative (Negative); Occult Blood-Urine Negative /ul (Negative); Protein-Dipstick Negative (Negative); Specific Gravity, Urine 1.005 (1.002-1.030); Urine Bilirubin Dipstick Negative (Negative); Urine Clarity Clear (Clear); Urine Urobilinogen Normal (Normal)
[2021-08-10 15:42] LABS: ALB/GLOB Ratio 1.6 RATIO (0.9-2.4); AST(SGOT) 22 U/L (15-37); Alanine Aminotransfer ALT/SGPT 39 U/L (13-56); Albumin, Serum 4.5 g/dL (3.2-5.0); Alkaline Phosphatase 60 U/L (45-117); Anion Gap 6 (5-15); BUN 10 mg/dL (7-18); BUN/Creat Ratio 14.7 RATIO (10-20); Calcium,Total 9.3 mg/dL (8.5-10.1); Chloride 103 mmol/L (98-107); Creatinine, Serum 0.68 mg/dL (0.55-1.02); EST Glomerular Filtration Rate 93 mL/min (>60); Est Glom Filt Rate - Afr Amer 113 mL/min (>60); Globulin 2.9 g/dL (2.2-4.2); Glucose 93 mg/dL (74-106); Potassium 4.5 mmol/L (3.5-5.1); Prealbumin 23.6 mg/dL (20.0-40.0); Protein, Total 7.4 g/dL (6.4-8.2); Sodium Level 140 mmol/L (136-145)
== END 2021-08-10 23:59 | disposition short-term general hospital (02) ==
LOC: MFPLAB 14:07
PROVIDERS: PCP Family Medicine; Referring Provider Family Medicine; Visit Provider Family Medicine
DX: E87.5 Hyperkalemia (principal); E46 Unspecified protein-calorie malnutrition; F17.200 Nicotine dependence, unspecified, uncomplicated
CPT/HCPCS: 36415; 80053; 81001; 84134; 85025

== ENCOUNTER → 2021-12-19 | Outpatient (CLI) | payer BC, SELFPAY ==
--- NOTE | 2021-12-19 16:06 | CT_ITS ---
EXAM: CT CHEST, LUNG CANCER SCREENING WITHOUT INTRAVENOUS CONTRAST CLINICAL INDICATION: NICOTINE DEPENDENCE TECHNIQUE: Helically acquired images were obtained of the chest without intravenous contrast using low dose (LDCT) lung cancer screening protocol. This CT exam was performed using one or more of the following dose reduction techniques: automated exposure control, adjustment of the mA and/or kV according to patient size, and/or use of iterative reconstruction technique. This report was created using [employer] report generation technology. COMPARISON: 02/24/2020 FINDINGS: LUNGS AND PLEURAL SPACES: Diffuse emphysematous changes of the lungs again seen. Bibasilar linear scarring/atelectasis. No mass. No pleural effusion or thickening. No pneumothorax. HEART: Moderate coronary artery calcification. Heart size is normal. No pericardial effusion. MEDIASTINUM: Unremarkable. No mediastinal or hilar adenopathy. Esophagus is unremarkable. No hiatal hernia. THYROID: Unremarkable. No thyroid lesions. BONES/JOINTS: Unremarkable. No suspicious lytic or blastic abnormality. VASCULATURE: Unremarkable. Thoracic aorta is non-dilated. LYMPH NODES: Unremarkable. No enlarged lymph nodes. CT/Low Dose CT Lung Screening IMPRESSION: 1. Stable pulmonary emphysema. 2. No evidence of lung nodule or mass. ACR Lung CT Screening Reporting T Data System (Lung-RADS) score: 1 - Recommend continued annual screening with low-dose CT (LDCT) in 12 months. } Electronically Signed: Taurus Turner MD at 15:19 EDT Reading Location ID and State: [address] [place] [address] Tel , Service support ,
== END | disposition home or self-care (01) ==
LOC: CT 16:04
PROVIDERS: PCP Family Medicine; Referring Provider Family Medicine; Visit Provider Family Medicine
DX: F17.200 Nicotine dependence, unspecified, uncomplicated (principal)
CPT/HCPCS: 71271

== ENCOUNTER → 2022-03-01 | Outpatient (CLI) | payer BC, SELFPAY ==
[2022-03-01 14:52] LABS: Absolute Lymphocyte Count 2.29 X10^3/uL (0.83-4.51); Absolute Neutrophil Count 6.3 X10^3/uL (2.0-7.7); Basophil# 0.06 X10^3/uL; Basophil% 0.6 % (0-1); Eosinophil# 0.09 X10^3/uL; Hematocrit 40.8 % (37-47); Hemoglobin 13.6 g/dL (12.0-15.0); Lymphocyte # 2.29 X10^3/ul (0.83-4.51); Lymphocyte % 24.5 % (19-41); Mean Corp Hgb Conc 33.3 g/dL (32-36); Mean Corpuscular Hgb 31.7 pg (27.0-32.0); Mean Corpuscular Volume 95.1 fL (81-99); Mean Platelet Vol. 10.9 fl (6.2-12.0); Monocyte# 0.61 X10^3/uL; Monocyte% 6.5 % (0-10); NRBC Flagged by Analyzer 0 % (0-5); Neutrophil # 6.25 X10^3/uL (2.7-7.7); Neutrophil % 66.9 % (47-70); Platelet Count 265 K/mm3 (150-450); RBC Distribution Width CV 12.5 % (11.6-14.6); RBC Distribution Width SD 43.7 fl (35.1-43.9); Red Blood Count 4.29 M/mm3 (4.2-5.4); White Blood Count 9.4 K/mm3 (4.4-11.0)
[2022-03-01 15:14] LABS: ALB/GLOB Ratio 1.5 RATIO (0.9-2.4); AST(SGOT) 20 U/L (15-37); Alanine Aminotransfer ALT/SGPT 35 U/L (13-56); Albumin, Serum 4.3 g/dL (3.2-5.0); Alkaline Phosphatase 57 U/L (45-117); Anion Gap 5 (5-15); BUN 12 mg/dL (7-18); BUN/Creat Ratio 15.6 RATIO (10-20); Calcium,Total 9.1 mg/dL (8.5-10.1); Chloride 103 mmol/L (98-107); Creatinine, Serum 0.77 mg/dL (0.55-1.02); EST Glomerular Filtration Rate 80 mL/min (>60); Est Glom Filt Rate - Afr Amer 97 mL/min (>60); Globulin 2.9 g/dL (2.2-4.2); Glucose 106 mg/dL (74-106); Potassium 4.1 mmol/L (3.5-5.1); Protein, Total 7.2 g/dL (6.4-8.2); Sodium Level 138 mmol/L (136-145)
== END | disposition home or self-care (01) ==
LOC: MFPLAB 12:17
PROVIDERS: PCP Family Medicine; Referring Provider Family Medicine; Visit Provider Family Medicine
DX: Z01.818 Encounter for other preprocedural examination (principal)
CPT/HCPCS: 36415; 80053; 85025

== ENCOUNTER → 2022-04-05 | Outpatient (CLI) | payer BC, SELFPAY ==
[2022-04-05 14:41] LABS: Mucous, Urine 0 SEEN /hpf (<or=2+)
[2022-04-05 17:51] LABS: Absolute Neutrophil Count 6.5 X10^3/uL (2.0-7.7); Basophil% 0.6 % (0-1); Eosinophils% 0.7 % (0-5); Hematocrit 39.4 % (37-47); Hemoglobin 13.1 g/dL (12.0-15.0); Lymphocyte % 25.8 % (19-41); Mean Corp Hgb Conc 33.2 g/dL (32-36); Mean Corpuscular Hgb 31.8 pg (27.0-32.0); Mean Corpuscular Volume 95.6 fL (81-99); Mean Platelet Vol. 10.6 fl (6.2-12.0); Monocyte% 5.2 % (0-10); Neutrophil # 6.45 X10^3/uL (2.7-7.7); Neutrophil % 67.4 % (47-70); Platelet Count 278 K/mm3 (150-450); RBC Distribution Width CV 12.6 % (11.6-14.6); RBC Distribution Width SD 44.7 fl (35.1-43.9); Red Blood Count 4.12 M/mm3 (4.2-5.4); White Blood Count 9.6 K/mm3 (4.4-11.0)
[2022-04-05 17:52] LABS: Absolute Lymphocyte Count 2.47 X10^3/uL (0.83-4.51); Basophil# 0.06 X10^3/uL; Eosinophil# 0.07 X10^3/uL; Lymphocyte # 2.47 X10^3/ul (0.83-4.51); NRBC Flagged by Analyzer 0 % (0-5)
[2022-04-05 18:00] LABS: Color, Urine Yellow (Yellow); Glucose, Dipstick Normal (Normal); Ketone-Dipstick Negative (Negative); Leukocyte Esterase-Dipstick 25 /ul (Negative); Nitrite-Dipstick Negative (Negative); Occult Blood-Urine 10 /ul (Negative); Protein-Dipstick Negative (Negative); Urine Bilirubin Dipstick Negative (Negative); Urine Clarity Clear (Clear); Urine Urobilinogen Normal (Normal)
[2022-04-05 18:47] LABS: ALB/GLOB Ratio 1.4 RATIO (0.9-2.4); AST(SGOT) 23 U/L (15-37); Alanine Aminotransfer ALT/SGPT 31 U/L (13-56); Albumin, Serum 4.2 g/dL (3.2-5.0); Alkaline Phosphatase 62 U/L (45-117); Anion Gap 6 (5-15); BUN 15 mg/dL (7-18); BUN/Creat Ratio 22.3 RATIO (10-20); Calcium,Total 9.3 mg/dL (8.5-10.1); Chloride 103 mmol/L (98-107); Creatinine, Serum 0.67 mg/dL (0.55-1.02); EST Glomerular Filtration Rate 94 mL/min (>60); Est Glom Filt Rate - Afr Amer 114 mL/min (>60); Globulin 2.9 g/dL (2.2-4.2); Glucose 102 mg/dL (74-106); Potassium 4.4 mmol/L (3.5-5.1); Prealbumin 17.6 mg/dL (20.0-40.0); Protein, Total 7.1 g/dL (6.4-8.2); Sodium Level 139 mmol/L (136-145)
[2022-04-05 19:04] LABS: Bacteria 4+ /hpf (None Seen); Red Blood Cells-Urine 0-5 SEEN /hpf (0-5); Squamous Epithelial Cells - UA 0-5 SEEN /hpf (5-10); White Blood Cells 5-10 SEEN /hpf (0-5)
== END | disposition home or self-care (01) ==
LOC: MFPLAB 14:40
PROVIDERS: PCP Family Medicine; Referring Provider Family Medicine; Visit Provider Family Medicine
DX: E46 Unspecified protein-calorie malnutrition (principal); F17.200 Nicotine dependence, unspecified, uncomplicated
CPT/HCPCS: 36415; 80053; 81001; 84134; 85025

== ENCOUNTER → 2022-04-26 | Outpatient (CLI) | payer BC, SELFPAY ==
--- NOTE | 2022-04-26 16:20 | RAD_ITS ---
STUDY: X-RAY CHEST REASON FOR EXAM: Female, 62 years old. LATENT TB TECHNIQUE: PA and lateral views of the chest. COMPARISON: 04/12/2020 FINDINGS: Status post anterior cervical discectomy and fusion in the lower cervical spine. The lungs are clear and expanded. There is no demonstrated pleural abnormality. Normal size heart. Normal mediastinum and meggan. Normal visualized pulmonary arteries. Normal visualized aortic arch and descending thoracic aorta. There is a levoscoliosis of the thoracic spine. Normal visualized ribs, clavicles, and shoulders. There is no demonstrated abnormality of the visualized soft tissue structures of the upper abdomen. RAD/Chest PA and Lateral IMPRESSION: Normal x-ray examination of the chest. Electronically Signed: Royal Cope MD at 16:44 EDT ,
== END | disposition home or self-care (01) ==
LOC: RAD 16:11
PROVIDERS: PCP Family Medicine; Referring Provider Internal Medicine Infectious Disease; Visit Provider Internal Medicine Infectious Disease
DX: Z22.7 Latent tuberculosis (principal)
CPT/HCPCS: 71046

== ENCOUNTER → 2022-07-05 | Outpatient (CLI) | payer OTHER, SELFPAY ==
[2022-07-05 17:50] LABS: Absolute Lymphocyte Count 2.12 X10^3/uL (0.83-4.51); Absolute Neutrophil Count 4.5 X10^3/uL (2.0-7.7); Basophil# 0.05 X10^3/uL; Basophil% 0.7 % (0-1); Eosinophil# 0.09 X10^3/uL; Eosinophils% 1.2 % (0-5); Hematocrit 40.4 % (37-47); Hemoglobin 13.3 g/dL (12.0-15.0); Lymphocyte # 2.12 X10^3/ul (0.83-4.51); Lymphocyte % 29.2 % (19-41); Mean Corp Hgb Conc 32.9 g/dL (32-36); Mean Corpuscular Hgb 31.6 pg (27.0-32.0); Mean Platelet Vol. 10.3 fl (6.2-12.0); Monocyte# 0.53 X10^3/uL; Monocyte% 7.3 % (0-10); NRBC Flagged by Analyzer 0 % (0-5); Neutrophil # 4.45 X10^3/uL (2.7-7.7); Neutrophil % 61.2 % (47-70); Platelet Count 286 K/mm3 (150-450); RBC Distribution Width CV 12.5 % (11.6-14.6); RBC Distribution Width SD 44.3 fl (35.1-43.9); Red Blood Count 4.21 M/mm3 (4.2-5.4); White Blood Count 7.3 K/mm3 (4.4-11.0)
[2022-07-05 18:05] LABS: Vitamin D,25 Hydroxy 58.8 ng/mL
[2022-07-05 18:19] LABS: ALB/GLOB Ratio 1.8 RATIO (0.9-2.4); AST(SGOT) 22 U/L (15-37); Alanine Aminotransfer ALT/SGPT 34 U/L (13-56); Albumin, Serum 4.2 g/dL (3.2-5.0); Alkaline Phosphatase 61 U/L (45-117); Anion Gap 7 (5-15); BUN 12 mg/dL (7-18); BUN/Creat Ratio 18.1 RATIO (10-20); Calcium,Total 8.8 mg/dL (8.5-10.1); Chloride 104 mmol/L (98-107); Creatinine, Serum 0.66 mg/dL (0.55-1.02); EST Glomerular Filtration Rate 95 mL/min (>60); Est Glom Filt Rate - Afr Amer 115 mL/min (>60); Globulin 2.3 g/dL (2.2-4.2); Glucose 89 mg/dL (74-106); Prealbumin 16.7 mg/dL (20.0-40.0); Protein, Total 6.5 g/dL (6.4-8.2); Sodium Level 140 mmol/L (136-145)
== END | disposition home or self-care (01) ==
PROVIDERS: PCP Family Medicine; Referring Provider Family Medicine; Visit Provider Family Medicine
DX: F17.200 Nicotine dependence, unspecified, uncomplicated (principal); E46 Unspecified protein-calorie malnutrition; M85.80 Other specified disorders of bone density and structure, unspecified site
CPT/HCPCS: 36415; 80053; 82306; 84134; 85025

== ENCOUNTER → 2022-08-01 | Outpatient (CLI) | payer OTHER, SELFPAY ==
--- NOTE | 2022-08-01 15:06 | BI_ITS ---
MAMMOGRAPHY - BILATERAL SCREENING REASON FOR EXAM: Female, 62 years old. Routine annual screening examination. PERTINENT HISTORY: Non-contributory. Bilateral breast implants. TECHNIQUE: Digital bilateral breast elizabeth (3D mammographic acquisition) in the CC and MLO projections. 2-D mediolateral oblique (MLO) and craniocaudad (CC) views of both breasts were obtained. CAD: Full Field Digital Mammography with Computer Added Detection was performed. COMPARISON: Comparison is made with prior study dated 01/22/2018 and 08/15/2019. FINDINGS: Breast Composition: The breasts are heterogeneously dense, which may obscure small masses. There are no dominant masses or suspicious calcifications. Stable appearance of the bilateral breast implants. No other significant abnormalities are identified. There has been no significant change since the prior study. BI/SCRN MAMM (CAD)W/ELIZABETH BILAT IMPRESSION: Stable bilateral screening mammogram. Yearly follow-up mammogram recommended. (A) ASSESSMENT CATEGORY: BIRADS Category 2: Benign. A letter regarding these results will be sent to the patient by the facility within 30 days. Approximately 10% of breast cancers are not detected by mammography. A normal mammogram should not delay biopsy of a clinically suspicious abnormality. [id number] Electronically Signed: Kavin Acosta MD at 8:33 EST ,
--- NOTE | 2022-08-01 15:32 | BD_ITS ---
STUDY: DUAL ENERGY X-RAY ABSORPTIOMETRY / DXA REASON FOR EXAM: Female, 62 years old. [id number] TECHNIQUE: Bone Mineral Density (BMD) measurements of lumbar spine and bilateral hips were obtained. COMPARISON: Comparison is made with prior study dated 01/22/2018. FINDINGS: Lumbar Spine (L1-L4): g/cm2 (1.018) / T-score (-0.3) / Z-score (1.5) Findings are suggestive of normal bone density with a low fracture risk. Left Femur Total: g/cm2 (0.712) / T-score (-1.9) / Z-score (0.7) Left Femoral Neck: g/cm2 (0.594) / T-score (-2.3) / Z-score (-0.8) Right Femur Total: g/cm2 (0.701) / T-score (-2.0) / Z-score (-0.8) Right Femoral Neck: g/cm2 (0.603) / T-score (-2.2) / Z-score (-0.7) The T-Scores on the most recent prior examination were: Lumbar Spine (L1-L4): There has been worsening of bone density since the previous examination. Left Femur Total: which represents a worsening of 5.9%. Right Femur Total: which represents a worsening of 10.8%. BD/Dexa Bone Density Study IMPRESSION: The patient is considered osteopenic as outlined below according to World [place] [employer] Organization (WHO) criteria with a high fracture risk. There has been worsening of bone density since the previous examination. Reference Information: The T-score is the number of standard deviations above or below the standard which is normal for young adults at their peak bone mineral density. The World Health Organization (WHO) interprets the T-scores as follows: Above -1 Normal bone density Between -1 and -2.5 Osteopenia Equal to / or below -2.5 Osteoporosis As a practical clinical guideline, osteopenia may be graded as follows: Mild -1 through -1.5 Moderate -1.6 through -2.0 Severe -2.1 through -2.4 The Z-score is the number of standard deviations above or below age-matched controls. A Z-score of less than -1.5 would be considered abnormal. References: 1. NIH Osteoporosis and Related Bone Diseases www osteo.org 2. International Society for Clinical Densitometry www iscd.org 3. National Osteoporosis Foundation www nof.org Electronically Signed: Kavin Acosta MD at 8:54 EST ,
== END | disposition home or self-care (01) ==
LOC: OPBD 15:02
PROVIDERS: PCP Family Medicine; Visit Provider Family Medicine
DX: Z12.31 Encounter for screening mammogram for malignant neoplasm of breast (principal); Z98.82 Breast implant status; M85.80 Other specified disorders of bone density and structure, unspecified site
CPT/HCPCS: 77063; 77067; 77080

== ENCOUNTER → 2022-09-28 | Outpatient (CLI) | payer OTHER, SELFPAY ==
--- NOTE | 2022-09-28 15:51 | MRI_ITS ---
INDICATION: Gait disorder; cerebrovascular disease, POSSIBLE MS EXAMINATION: MRI - MR Brain WO/W Contrast TECHNIQUE: MRI examination of brain obtained with multiplanar multiecho pre and postcontrast imaging. IV Contrast Dosage and Agent: Intravenous contrast administered, dose not currently available. COMPARISON: None. FINDINGS: HEMISPHERES, CEREBELLUM AND BRAINSTEM: 1. The cerebral parenchyma, ventricular system, subarachnoid spaces have normal configuration and density. There is a normal gyral pattern. There is normal palacio/white differentiation. No midline shift.. 2. Mild involutional changes. Minimal scattered white matter hyperintensities. No areas of fluid restriction, or ischemic change. No evidence of hemosiderin deposition or hemorrhage. No areas of intraparenchymal extra-axial contrast enhancement. 3. No intraparenchymal mass, hemorrhage, or acute territorial infarct. 4. The cerebellum, brainstem, basilar and suprasellar cisterns have normal appearance. No Chiari malformation. PITUITARY: Infundibulum and pituitary have normal configuration. Midline structures appear normal. CSF SPACES: Appropriate for age. No hydrocephalus. Basal cisterns are patent. VESSELS: 1. There are normal flow voids noted in the great vessels at the skull base ORBITS AND PARANASAL SINUSES: 1. Both globes, extraocular muscles, optic nerves and retrobulbar fat appear unremarkable. 2. Mucous retention cyst in the RIGHT maxillary antrum. Remaining paranasal sinuses are clear. BONY ELEMENTS: Bony elements of the cranial vault, facial skeleton and skull base have normal appearance. SCALP AND SOFT TISSUES: Normal appearance of the soft tissues of the scalp and the visualized face OTHER: None MRI/Brain W/WO Contrast IMPRESSION: 1. Mild involutional changes and minimal chronic microvascular deep white matter changes. 2. No mass, hemorrhage, or acute territorial infarct or areas of abnormal contrast enhancement. 3. No MRI evidence of demyelinating diseases. 4. Minimal chronic appearing sinus disease. Electronically Signed: Royal Adamson MD at 0:11 EST ,
[2022-09-28 16:30] LABS: CREATININE FINGERSTICK < 0.9 mg/dL (0.55-1.02); EGFR FINGERSTICK > 60.0000 mL/min (>60)
== END | disposition home or self-care (01) ==
LOC: MRI 15:51
PROVIDERS: PCP Family Medicine; Referring Provider Psychiatry & Neurology Neurology; Visit Provider Psychiatry & Neurology Neurology
DX: R26.9 Unspecified abnormalities of gait and mobility (principal); I67.9 Cerebrovascular disease, unspecified
CPT/HCPCS: 70553; A9575

== ENCOUNTER → 2022-11-01 | Outpatient (CLI) | payer OTHER, SELFPAY ==
[2022-11-01 17:54] LABS: Absolute Lymphocyte Count 2.58 X10^3/uL (0.83-4.51); Absolute Neutrophil Count 6.3 X10^3/uL (2.0-7.7); Basophil# 0.08 X10^3/uL; Basophil% 0.8 % (0-1); Eosinophil# 0.14 X10^3/uL; Eosinophils% 1.4 % (0-5); Hematocrit 41.1 % (37-47); Hemoglobin 13.8 g/dL (12.0-15.0); Lymphocyte # 2.58 X10^3/ul (0.83-4.51); Lymphocyte % 26.2 % (19-41); Mean Corp Hgb Conc 33.6 g/dL (32-36); Mean Corpuscular Hgb 31.6 pg (27.0-32.0); Mean Corpuscular Volume 94.1 fL (81-99); Mean Platelet Vol. 10.6 fl (6.2-12.0); Monocyte# 0.67 X10^3/uL; Monocyte% 6.8 % (0-10); NRBC Flagged by Analyzer 0 % (0-5); Neutrophil # 6.34 X10^3/uL (2.7-7.7); Neutrophil % 64.5 % (47-70); Platelet Count 285 K/mm3 (150-450); RBC Distribution Width SD 42.1 fl (35.1-43.9); Red Blood Count 4.37 M/mm3 (4.2-5.4); White Blood Count 9.8 K/mm3 (4.4-11.0)
[2022-11-01 18:16] LABS: Vitamin D,25 Hydroxy 72.1 ng/mL
[2022-11-01 18:17] LABS: ALB/GLOB Ratio 1.6 RATIO (0.9-2.4); AST(SGOT) 23 U/L (15-37); Alanine Aminotransfer ALT/SGPT 36 U/L (13-56); Albumin, Serum 4.4 g/dL (3.2-5.0); Alkaline Phosphatase 68 U/L (45-117); Anion Gap 4 (5-15); BUN 9 mg/dL (7-18); BUN/Creat Ratio 11.9 RATIO (10-20); Calcium,Total 9.4 mg/dL (8.5-10.1); Chloride 105 mmol/L (98-107); Creatinine, Serum 0.76 mg/dL (0.55-1.02); EST Glomerular Filtration Rate 82 mL/min (>60); Est Glom Filt Rate - Afr Amer 99 mL/min (>60); Globulin 2.8 g/dL (2.2-4.2); Glucose 89 mg/dL (74-106); Potassium 4.5 mmol/L (3.5-5.1); Prealbumin 20.8 mg/dL (20.0-40.0); Protein, Total 7.2 g/dL (6.4-8.2); Sodium Level 139 mmol/L (136-145)
== END | disposition home or self-care (01) ==
LOC: MFPLAB 14:31
PROVIDERS: PCP Family Medicine; Referring Provider Family Medicine; Visit Provider Family Medicine
DX: F17.210 Nicotine dependence, cigarettes, uncomplicated (principal); E46 Unspecified protein-calorie malnutrition; M85.80 Other specified disorders of bone density and structure, unspecified site
CPT/HCPCS: 36415; 80053; 82306; 84134; 85025

== ENCOUNTER → 2022-12-27 | Outpatient (CLI) | payer OTHER, SELFPAY | END | disposition home or self-care (01) | LOC: LABSPEC 15:24 | PROVIDERS: PCP Family Medicine; Referring Provider Family Medicine; Visit Provider Family Medicine | DX: N39.0 Urinary tract infection, site not specified (principal) | CPT/HCPCS: 87086; 87088 ==

== ENCOUNTER → 2023-04-11 | Outpatient (CLI) | payer MEDICARE, SELFPAY ==
--- NOTE | 2023-04-11 14:53 | RAD_ITS ---
STUDY: X-RAY CHEST REASON FOR EXAM: Female, 63 years old. PSORIASIS TECHNIQUE: Frontal and lateral views of the chest. COMPARISON: 04/26/2022. FINDINGS: Bilateral breast implants are noted. The lungs are clear and expanded. There is no demonstrated pleural abnormality. Normal size heart. Normal mediastinum and meggan. Normal visualized pulmonary arteries. Normal visualized aortic arch and descending thoracic aorta. Normal visualized thoracic spine. Normal visualized ribs, clavicles, and shoulders. There is no demonstrated abnormality of the visualized soft tissue structures of the upper abdomen. RAD/Chest PA and Lateral IMPRESSION: There are findings consistent with COPD. There is no evidence of acute chest disease. Electronically Signed: Riaz Rodriguez MD at 17:11 EDT ,
== END | disposition home or self-care (01) ==
PROVIDERS: PCP Family Medicine; Referring Provider Dermatology; Visit Provider Dermatology
DX: D22.5 Melanocytic nevi of trunk (principal); L57.0 Actinic keratosis; X32.XXXA Exposure to sunlight, initial encounter; L40.0 Psoriasis vulgaris; Z79.899 Other long term (current) drug therapy
CPT/HCPCS: 71046

== ENCOUNTER → 2023-05-14 | Outpatient (CLI) | payer MEDICARE, SELFPAY | END | disposition home or self-care (01) | PROVIDERS: PCP Family Medicine; Referring Provider Psychiatry & Neurology Neurology; Visit Provider Psychiatry & Neurology Neurology | DX: R26.9 Unspecified abnormalities of gait and mobility (principal) | CPT/HCPCS: 36415 ==

== ENCOUNTER → 2023-06-05 | Outpatient (CLI) | payer MEDICARE, SELFPAY ==
[2023-06-05 17:41] LABS: Absolute Lymphocyte Count 3.35 X10^3/uL (0.83-4.51); Absolute Neutrophil Count 6.9 X10^3/uL (2.0-7.7); Basophil# 0.09 X10^3/uL; Basophil% 0.8 % (0-1); Eosinophil# 0.11 X10^3/uL; Hematocrit 41.2 % (37-47); Hemoglobin 13.4 g/dL (12.0-15.0); Lymphocyte # 3.35 X10^3/ul (0.83-4.51); Mean Corp Hgb Conc 32.5 g/dL (32-36); Mean Corpuscular Volume 95.4 fL (81-99); Mean Platelet Vol. 10.4 fl (6.2-12.0); Monocyte# 0.67 X10^3/uL; NRBC Flagged by Analyzer 0 % (0-5); Neutrophil # 6.92 X10^3/uL (2.7-7.7); Neutrophil % 61.8 % (47-70); Platelet Count 299 K/mm3 (150-450); RBC Distribution Width CV 12.4 % (11.6-14.6); RBC Distribution Width SD 43.5 fl (35.1-43.9); Red Blood Count 4.32 M/mm3 (4.2-5.4); White Blood Count 11.2 K/mm3 (4.4-11.0)
[2023-06-05 18:02] LABS: Vitamin D,25 Hydroxy 74.4 ng/mL
[2023-06-05 18:11] LABS: ALB/GLOB Ratio 1.3 RATIO (0.9-2.4); AST(SGOT) 19 U/L (15-37); Alanine Aminotransfer ALT/SGPT 24 U/L (13-56); Albumin, Serum 4.3 g/dL (3.2-5.0); Alkaline Phosphatase 71 U/L (45-117); Anion Gap 3 (5-15); BUN 12 mg/dL (7-18); BUN/Creat Ratio 17.6 RATIO (10-20); Calcium,Total 9.4 mg/dL (8.5-10.1); Chloride 104 mmol/L (98-107); Creatinine, Serum 0.68 mg/dL (0.55-1.02); EST Glomerular Filtration Rate 92 mL/min (>60); Est Glom Filt Rate - Afr Amer 111 mL/min (>60); Globulin 3.3 g/dL (2.2-4.2); Glucose 95 mg/dL (74-106); Potassium 4.3 mmol/L (3.5-5.1); Prealbumin 19.5 mg/dL (20.0-40.0); Protein, Total 7.6 g/dL (6.4-8.2); Sodium Level 139 mmol/L (136-145)
== END | disposition home or self-care (01) ==
LOC: MFPLAB 15:20
PROVIDERS: PCP Family Medicine; Visit Provider Family Medicine
DX: M85.80 Other specified disorders of bone density and structure, unspecified site (principal); E46 Unspecified protein-calorie malnutrition; F17.200 Nicotine dependence, unspecified, uncomplicated
CPT/HCPCS: 36415; 80053; 82306; 84134; 85025

== ENCOUNTER → 2023-06-11 | Outpatient (CLI) | payer MEDICARE, SELFPAY ==
--- NOTE | 2023-06-11 07:29 | MRI_ITS ---
INDICATION: low back pain; worsening gait EXAMINATION: MRI - MR Spine Lumbar W/O Contrast TECHNIQUE: Multiplanar and multisequence MR images of the lumbar spine. IV Contrast Dosage and Agent: None. COMPARISON: 01/03/2021 FINDINGS: VERTEBRAE: Vertebral body heights are preserved. No acute fracture or pathologic marrow replacement. VERTEBRAL ALIGNMENT: No spondylolisthesis. There is preservation of the normal lumbar lordosis. CORD: Normal position and signal intensity of the conus medullaris. T12/L1: Stable central disc protrusion with extruded fragment. No significant foraminal stenosis. L1/L2: Stable shallow posterior disc protrusion with mild central stenosis. No significant foraminal stenosis. L2/L3: Normal disc height and morphology. Normal spinal canal, lateral recesses and neuroforamina. L3/L4: Stable mild circumferential annular bulge and facet joint hypertrophy. Stable mild central and bilateral foraminal stenosis. L4/L5: Stable moderate bilateral facet and ligamentum flavum hypertrophy with moderate central and bilateral foraminal stenosis. L5/S1: Normal disc height and morphology. Normal spinal canal, lateral recesses and neuroforamina. SOFT TISSUES: Unremarkable. MRI/Spine Lumbar (Routine) IMPRESSION: Stable degenerative disc changes with most severe central and foraminal stenosis at L4-5. Stable central disc protrusion with extruded fragment at T12-L1. Electronically Signed: Derik Membreno MD at 0:17 EST ,
--- NOTE | 2023-06-11 10:16 | US_ITS ---
STUDY: ULTRASOUND - URINARY BLADDER REASON FOR EXAM: Female, 63 years old. incomplete bladder emptying TECHNIQUE: Ultrasound evaluation of the urinary bladder was performed with real-time and static palacio-scale imaging. COMPARISON: None. FINDINGS: There is no right UVJ calculus. There is a visualized right ureteral jet. There is no left UVJ calculus. There is a visualized left ureteral jet. The distended volume of the urinary bladder is 42 ml. The empty volume of the urinary bladder is 38 ml. The bladder wall is within normal limits. The bladder wall measures 2 mm thick. There is no demonstrated bladder wall mass lesion. There are no demonstrated bladder calculi. US/Post Void Residual Bladder IMPRESSION: Normal ultrasound of the urinary bladder. Electronically Signed: Royal Cope MD at 23:01 EST ,
== END | disposition home or self-care (01) ==
PROVIDERS: PCP Family Medicine; Referring Provider Psychiatry & Neurology Neurology; Visit Provider Psychiatry & Neurology Neurology
DX: R33.9 Retention of urine, unspecified (principal); M48.061 Spinal stenosis, lumbar region without neurogenic claudication; R26.9 Unspecified abnormalities of gait and mobility
CPT/HCPCS: 51798; 72148

== ENCOUNTER → 2023-07-03 | Outpatient (CLI) | payer MEDICARE, SELFPAY ==
--- NOTE | 2023-07-03 13:49 | ECHOD_ITS ---
Reason For Study: Cardiomegaly Procedure This was a 2D Doppler, Color Flow transthoracic echocardiogram. Technically difficult study due to patients body habitus and breast implants. Exam performed in department. Left Ventricle Normal size and thickness. The left ventricular ejection fraction is 70 %. Left ventricular systolic function is hyperdynamic. Normal diastology for age. Right Ventricle Normal right ventricle. Atria The left and right atria are normal. Mitral Valve Trivial mitral valve insufficiency. Tricuspid Valve Trivial tricuspid valve insufficiency. Unable to estimate RV systolic pressure due to insufficient tricuspid regurgitant envelope. Aortic Valve Mild focal aortic valve calcification. Trisinus/trileaflet aortic valve. Pulmonic Valve The pulmonic valve is not well visualized. Great Vessels Normal sized aortic root. Pericardium/Pleural No pericardial effusion. MMode/2D Measurements & Calculations LVIDd: 3.3 cm IVSd: 0.78 cm Ao root diam: 3.0 cm LVIDs: 2.2 cm LVPWd: 0.83 cm LA dimension: 2.5 cm RVDd: 3.2 cm FS: 35.0 % LAV(MOD-sp4): 17.0 ml LVAd ap4: 20.2 cm2 SV(MOD-sp4): 35.9 ml LVLd ap4: 7.2 cm EDV(MOD-sp4): 46.4 ml EDV(sp4-el): 48.1 ml LVAs ap4: 8.2 cm2 LVLs ap4: 5.7 cm ESV(MOD-sp4): 10.5 ml ESV(sp4-el): 10.0 ml EF(MOD-sp4): 77.3 % EF(sp4-el): 79.3 % SV(sp4-el): 38.1 ml LA A4 area: 8.9 cm2 Time Measurements MV dec time: 0.20 sec Doppler Measurements & Calculations MV E max emerson: 90.3 cm/sec Lat Peak E' Emerson: 9.9 cm/sec Med Peak E' Emerson: 11.4 cm/sec MV A max emerson: 90.3 cm/sec E/E' lat: 9.1 E/E' med: 7.9 MV E/A: 1.0 MV V2 max: 122.4 cm/sec MV P1/2t max emerson: 125.5 cm/sec LV V1 max: 77.9 cm/sec MV max P.0 mmHg MV P1/2t: 71.1 msec LV V1 max P.4 mmHg MV V2 mean: 56.0 cm/sec MV mean P.6 mmHg MV dec slope: 516.8 cm/sec2 MV V2 VTI: 31.4 cm MVA(P1/2t): 3.1 cm2 PA V2 max: 95.7 cm/sec TR max emerson: 186.0 cm/sec TR max P.8 mmHg ECHO/Echo Complete Interpretation Summary Left ventricular systolic function is hyperdynamic. The left ventricular ejection fraction is 70 %. Mild focal aortic valve calcification. Ordering Physician: Wilmer Diaz Referring Physician: Wilmer Diaz Performed By: Jack Brooke RCS
== END | disposition home or self-care (01) ==
LOC: CVS 13:48
PROVIDERS: PCP Family Medicine; Referring Provider Family Medicine; Visit Provider Family Medicine
DX: I51.7 Cardiomegaly (principal)
CPT/HCPCS: 93306

== ENCOUNTER → 2023-08-20 | Outpatient (CLI) | payer MEDICARE, SELFPAY ==
--- NOTE | 2023-08-20 12:30 | MRI_ITS ---
STUDY: MRI CERVICAL SPINE WITHOUT CONTRAST REASON FOR EXAM: Female, 63 years old. pain TECHNIQUE: Standardized fat and water weighted pulse sequences were obtained in the sagittal and axial planes. COMPARISON: Cervical spine radiograph August 07, 2023. August 24 2020 MR cervical spine. FINDINGS: Normal foramen magnum and brainstem-cervical cord junction. Normal craniovertebral junction. Normal anterior atlantoaxial articulation. Normal odontoid process. Normal cervical lordosis. Normal vertebral bodies and posterior osseous elements. And replacement screws C3-C7. Local magnetic susceptibility artifact. C2-3: Normal endplates. Normal disc height, signal and morphology. Normal central canal and intervertebral neural foramina. C3-4: Normal endplates. Normal disc height, signal and morphology. Normal central canal and intervertebral neural foramina. C4-5: Normal endplates. Normal disc height, signal and morphology. Normal central canal and intervertebral neural foramina. C5-6: Normal endplates. Normal disc height, signal and morphology. Normal central canal and intervertebral neural foramina. C6-7: Normal endplates. Normal disc height, signal and morphology. Normal central canal and intervertebral neural foramina. C7-T1: Normal endplates. Normal disc height, signal and morphology. Normal central canal and intervertebral neural foramina. Normal cervical cord. Normal visualized soft tissue structures. MRI/Spine Cervical (Routine) IMPRESSION: Anterior cervical disc fusion C3-C7. No acute disease. Electronically Signed: Chance Naranjo MD at 23:46 EST ,
== END | disposition home or self-care (01) ==
LOC: MRI 12:04
PROVIDERS: PCP Family Medicine; Referring Provider Orthopaedic Surgery Orthopaedic Surgery of the Spine; Visit Provider Orthopaedic Surgery Orthopaedic Surgery of the Spine
DX: G95.9 Disease of spinal cord, unspecified (principal)
CPT/HCPCS: 72141

== ENCOUNTER → 2023-09-13 | Outpatient (CLI) | payer MEDICARE, SELFPAY ==
--- NOTE | 2023-09-13 15:41 | RAD_ITS ---
INDICATION: bilateral gluteal pain EXAMINATION/TECHNIQUE: X-RAY - XR Hips Bilateral with Pelvis when performed; 2 Views COMPARISON: X-rays pelvis and hips 02/25/2020 FINDINGS: No fracture demonstrated. The femoral heads are normal in contour. No dislocation at the hips. The sacroiliac joints are symmetric. Sacrum partially obscured by stool. Degenerative changes at the lower lumbar spine. Surgical clips noted along the right lower pelvis. RAD/Hips B/L min 2 views w/ Pelvis IMPRESSION: Degenerative changes lower lumbar spine. Otherwise unremarkable study. Electronically Signed: Gillian Norris MD at 7:53 EST ,
== END | disposition home or self-care (01) ==
LOC: MTRAD 15:41
PROVIDERS: PCP Family Medicine; Referring Provider Psychiatry & Neurology Neurology; Visit Provider Psychiatry & Neurology Neurology
DX: M79.18 Myalgia, other site (principal)
CPT/HCPCS: 73521

== ENCOUNTER → 2023-10-18 | Outpatient (CLI) | payer MEDICARE, SELFPAY ==
--- NOTE | 2023-10-18 14:35 | CT_ITS ---
STUDY: LOW DOSE CT LUNG CANCER SCREENING REASON FOR EXAM: Female, 63 years old. Nicotine dependence. Current smoker. Patient smokes 1 pack per day for 50 years. RADIATION DOSAGE (If Supplied By Facility): CTDIvol = ( 2.01 ) mGy, DLP = ( 70.47 ) mGycm TECHNIQUE: No contrast was administered. Low dose technique was utilized (average mAS-38 and kVp 120). 1.25 mm axial source images with a slice interval of 1.25-mm were reconstructed in lung windows. 2.5 mm axial source images with a slice interval of 2.5-mm were reconstructed in lung windows. 5.0 mm axial source images with a slice interval of 5.0-mm were reconstructed in soft tissue windows. COMPARISON: Comparison is made with prior study dated December 19, 2021. NODULES: No suspicious nodules are seen. Emphysema: Stable scarring at the lung apices. Hyperinflation. Mild emphysematous changes. Minimal linear scarring at the lung bases as well as in the lingular segment of the left upper lobe. Endobronchial lesion: None Aorta: Atherosclerotic plaque formation of the aortic arch. CORONARY ARTERIES: Coronary artery calcification is seen. Heart: Unremarkable Pulmonary artery: Unremarkable Mediastinal nodes: Unremarkable Other chest and abdominal findings: Stable bilateral breast implants. CT/Low Dose CT Lung Screening IMPRESSION: Lung-RADS category 2 - Continue annual screening with LDCT in 12 months. IMPORTANT NOTES FOR USE: ACR Lung-RADS Version 1.1 Assessment Categories Release Date: 2018 Category: Coded 0-4 bases on nodule(s) with highest degree of suspicion. Negative screen is defined as categories 1 and 2; a positive screen is defined as categories 3 and 4. Category 3 and 4A nodules that are unchanged on interval CT should be coded as category 2, and individuals returned to screening in 12 months. Category 4X: Category 3 or 4 nodules with additional imaging findings that increase the suspicion of lung cancer, such as spiculation, GGN that doubles in size in 1 year, enlarged lymph notes, etc. Category Modifiers: S (significant finding unrelated to lung cancer) Electronically Signed: Kavin Acosta MD at 15:58 EDT ,
--- NOTE | 2023-10-18 14:57 | BI_ITS ---
MAMMOGRAPHY - BILATERAL SCREENING REASON FOR EXAM: Female, 63 years old. Routine annual screening examination. PERTINENT HISTORY: Non-contributory. Bilateral breast implants. TECHNIQUE: Digital bilateral breast elizabeth (3D mammographic acquisition) in the CC and MLO projections. 2-D mediolateral oblique (MLO) and craniocaudad (CC) views of both breasts were obtained. CAD: Full Field Digital Mammography with Computer Added Detection was performed. COMPARISON: Comparison is made with prior study dated August 01, 2022 and August 15, 2019. FINDINGS: Breast Composition: The breasts are extremely dense, which lowers the sensitivity of mammography. There are no dominant masses or suspicious calcifications. Stable appearance of the bilateral breast implants. No other significant abnormalities are identified. There has been no significant change since the prior study. BI/SCRN MAMM (CAD)W/ELIZABETH BILAT IMPRESSION: Stable bilateral screening mammogram. Yearly follow-up mammogram recommended. (A) ASSESSMENT CATEGORY: BIRADS Category 2: Benign. A letter regarding these results will be sent to the patient by the facility within 30 days. Approximately 10% of breast cancers are not detected by mammography. A normal mammogram should not delay biopsy of a clinically suspicious abnormality. [id number] Electronically Signed: Kavin Acosta MD at 16:17 EDT ,
== END | disposition home or self-care (01) ==
LOC: CT 14:34
PROVIDERS: PCP Family Medicine; Referring Provider Family Medicine; Visit Provider Family Medicine
DX: Z12.31 Encounter for screening mammogram for malignant neoplasm of breast (principal); F17.210 Nicotine dependence, cigarettes, uncomplicated
CPT/HCPCS: 71271; 77063; 77067

== ENCOUNTER → 2023-11-20 | Outpatient (CLI) | payer MEDICARE, SELFPAY ==
[2023-11-20 17:32] LABS: Absolute Lymphocyte Count 2.54 X10^3/uL (0.83-4.51); Absolute Neutrophil Count 5.8 X10^3/uL (2.0-7.7); Basophil# 0.08 X10^3/uL; Basophil% 0.9 % (0-1); Eosinophil# 0.06 X10^3/uL; Eosinophils% 0.7 % (0-5); Hematocrit 38.8 % (37-47); Hemoglobin 13.4 g/dL (12.0-15.0); Lymphocyte # 2.54 X10^3/ul (0.83-4.51); Lymphocyte % 27.9 % (19-41); Mean Corp Hgb Conc 34.5 g/dL (32-36); Mean Corpuscular Hgb 31.9 pg (27.0-32.0); Mean Corpuscular Volume 92.4 fL (81-99); Mean Platelet Vol. 9.8 fl (6.2-12.0); Monocyte# 0.62 X10^3/uL; Monocyte% 6.8 % (0-10); NRBC Flagged by Analyzer 0 % (0-5); Neutrophil # 5.76 X10^3/uL (2.7-7.7); Neutrophil % 63.4 % (47-70); Platelet Count 308 K/mm3 (150-450); RBC Distribution Width CV 12.7 % (11.6-14.6); RBC Distribution Width SD 42.6 fl (35.1-43.9); White Blood Count 9.1 K/mm3 (4.4-11.0)
[2023-11-20 19:05] LABS: ALB/GLOB Ratio 1.6 RATIO (0.9-2.4); AST(SGOT) 23 U/L (15-37); Alanine Aminotransfer ALT/SGPT 31 U/L (13-56); Albumin, Serum 4.6 g/dL (3.2-5.0); Alkaline Phosphatase 68 U/L (45-117); Anion Gap 5 (5-15); BUN 7 mg/dL (7-18); BUN/Creat Ratio 9.5 RATIO (10-20); Calcium,Total 9.4 mg/dL (8.5-10.1); Chloride 100 mmol/L (98-107); Creatinine, Serum 0.73 mg/dL (0.55-1.02); EST Glomerular Filtration Rate 84 mL/min (>60); Est Glom Filt Rate - Afr Amer 102 mL/min (>60); Globulin 2.8 g/dL (2.2-4.2); Glucose 101 mg/dL (74-106); Potassium 3.9 mmol/L (3.5-5.1); Prealbumin 20.2 mg/dL (20.0-40.0); Protein, Total 7.4 g/dL (6.4-8.2); Sodium Level 136 mmol/L (136-145)
== END | disposition home or self-care (01) ==
LOC: MFPLAB 16:09
PROVIDERS: PCP Family Medicine; Visit Provider Family Medicine
DX: J45.909 Unspecified asthma, uncomplicated (principal); E46 Unspecified protein-calorie malnutrition
CPT/HCPCS: 36415; 80053; 84134; 85025

== ENCOUNTER 2023-12-18 11:00 | Inpatient (IN) | payer MEDICARE, SELFPAY ==
[2023-12-11 16:40] LABS: Magnesium 2.3 mg/dL (1.6-2.6)
[2023-12-11 17:45] LABS: HIV - WCH Non-Reactive (Nonreactive); Hepatitis B Surface Antibody Non-Reactive; Hepatitis C Antibody Non-Reactive (Nonreactive)
[2023-12-13 05:07] LABS: Hepatitis A AB, Total Negative (Negative)
[2023-12-18] VITALS (12 sets, daily range): BP systolic 112–147; BP diastolic 65–95; PULSE 62–84; RESP 13–16; TEMP 36.1–37.7; O2SAT 95–100; BMI 19.6; BMI 19.7
[2023-12-18] MEDS: Lactated Ringers 1,000 ML 15 ML IV (11:41)
[2023-12-18] MEDS: Magnesium 1 GM over 15 mins IV (11:41)
[2023-12-18] MEDS: Acetaminophen 500 MG Tablet 1000 MG PO ×2 (11:42→22:50)
--- NOTE | 2023-12-18 11:44 | HP.PCM_ITS ---
History and Physical Date of Admission: 12/18/23 MR#: [id number] Acct: [id number] Name: SERENA RAMSAY Rep #: [id number] : 1960 Provider: Dr. Harvey Cordero MD Age/Sex: 63/F Location: [facility] [email or web address] Status: Signed Intake Vital Signs 09/13/2412:44 12/10/2413:42 Height 5 ft 4 in 5 ft 4 in Weight: 114 lb 4 oz BMI 19.5 Intake Visit Reasons: lumbar spine Accompanied by: Self Is patient in pain?: Yes Allergies minocycline (Minocycline) Allergy (Severe, Verified 12/11/23 14:42) Anaphylaxiscyclobenzaprine (From Flexeril) Allergy (Unknown, Verified 12/11/23 14:42) Swellingapremilast (From Otezla) Adverse Reaction (Unknown, Verified 12/11/23 14:42) Headache and weight lossgabapentin (From Neurontin) Adverse Reaction (Unknown, Verified 12/11/23 14:42) Drowsinessnabumetone (From Relafen) Adverse Reaction (Unknown, Verified 12/11/23 14:42) GI symptoms Medications ?Medication ?Instructions ?Recorded ?Confirmed ?Type cholecalciferol (vitamin D3) 50 50 mcg PO DAILY SUPPLEMENT 08/03/20 12/11/23 History mcg (2,000 unit) capsule ocmxqhfphkeu-Wp-otng-minerals 27 1 tab PO DAILY SUPPLEMENT 01/10/21 12/11/23 History mg-0.4 mg tablet (One Daily Women's) ixekizumab 80 mg/mL subcutaneous 80 mg subcut Q4W PSORIATIC 08/07/23 12/11/23 History auto-injector (Taltz Autoinjector) ARTHRITIS calcium 650 mg-vitamin D3 12.5 1 tab PO DAILY SUPPLEMENT 10/19/23 12/11/23 History mcg-vitamin K 40 mcg chewable tablet (Viactiv) escitalopram oxalate 20 mg tablet 20 mg PO QHS ANTIDEPRESSANT #30 10/31/23 12/11/23 Rx tabs desmopressin 0.2 mg tablet 0.2 mg PO BID BLADDER CONTROL 12/04/23 12/11/23 History varenicline 1 mg tablet (Chantix) 1 mg PO BID SMOKING CESSATION 12/04/23 12/11/23 History PFSH Medical History Wears glasses Post-menopausal Cancer Walker as ambulation aid Back pain Injury of head and neck Difficulty swallowing Smoker History of echocardiogram TB lung, latent Chronic bronchitis Neuropathy Vitamin D deficiency History of pneumonia Psoriatic arthritis Anxiety Hypertension Emphysema, unspecified COPD (chronic obstructive pulmonary disease) Spinal stenosis of cervical region History of uterine cancer Surgical History H/O eye surgery History of partial hysterectomy History of shoulder surgery History of tonsillectomy and adenoidectomy H/O inguinal hernia repair History of breast augmentation S/P cervical spinal fusion H/O cervical discectomy Family History Father COPD (chronic obstructive pulmonary disease) Diabetes Heart diseaseMother Heart disease Social History household members: none housing: house current occupational status: retired pets and animals: Yes pets and animals: dog(s) Smoking Status: Current every day smoker tobacco type: cigarettes Tobacco: How many years used: 45 Electronic Cigarette Use: not used second hand exposure: Yes alcohol intake: current alcohol intake frequency: holidays/special occasions only substance use type: does not use what type of physical activity do you participate in: none seatbelt use: always do you feel safe at home: Yes HPI lumbar spine Details: This documentation accurately reflects the service provided and the decisions made by me, Dr. Harvey Cordero MD 12/11/23 7675. Part of today?s visit was documented by Roxana JAIN, acting as scribe. SERENA RAMSAY is a 63 year old F here today for preop, lumbar spine, dos 12/18/23. Pt. denies any changes. Serena continues to have low back pain bilateral lower extremity Numbness and difficulty walking distances. 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 She is here for her preop visit. She has no new symptoms since last time seen by me. Following is a previous history: 10/19/23: SERENA RAMSAY is a 63 year old F here today for lumbar spine pain. Patient was referred back here after seeing Dr. Arthur. She states she had an epidural injection with Dr. Arthur on 09/26/2023 and that took about 50% of her pain away. Patient states she is able to bend and lift without being in immense amount of pain after the injection. Patient denies any numbness or tingling down into her legs at all. She does get some into her right foot though. Patient denies taking any pain medications. Serena is back for follow-up. She underwent epidural injections with Dr. Arthur which gave her some temporary relief but the pain has come back. She continues to have lower back pain, bilateral numbness and lower extremities and difficulty walking distances. She also has significant balance issues which are remnant from her cervical spine surgery. following is a previous history: 08/31/23: SERENA RAMSAY is a 63 year old F here today for cervical spine MRI review. She would like to discuss results and next steps for the treatment of her pain. Serena continues to have low back pain, balance issues, right foot burning. She was seen by me previously and was advised to obtain a new MRI of cervical spine to make sure there is noticeable cord compression. She is here to review the images. In the interim she was able to see physical therapy and was also able to see Dr. Arthur in pain management. She did not however have any epidural injections. She has started physical therapy but says that this has not solved her problems and resolved her pain. Following is her previous history. 08/07/23: SERENA RAMSAY is a 63 year old F here today for low back pain. Pt. presents ambulating slowly with walker. She states she has psoriatic arthritis, DJD, and spinal stenosis. She denies back injury, she denies previous lumbar back surgery. She has had cervical spine surgery in 2001 and 2019. She states her low back pain extends into her bilateral hips and is worse on the left side. She denies radiculopathy in her legs. She experience numbness and tingling in her bilateral feet. She states she fractured her left ankle in mid-June 2023 but has not had it confirmed with an Xray. She had a recent lumbar MRI. Serena has been in axial low back pain for many years now. This is significantly worsened such that she feels more reliant on the walker. She also has significant balance issues that she says is getting worse with time. Of note she has had 2 ACDF surgeries 07/2001 and the other in 2018 which gave her some relief with her myelopathic balance symptoms, but this have now resurfaced and are worsening with time. Her lower back pain does not radiate down the legs but she feels tingling numbness in the legs after walking a certain distance. She is now fully reliant on the walker because of this. She feels that leaning forward helps with her walking ability. She is on Otezla for rheumatologic arthritis. Ortho Exam General General: Yes no acute distress Neurologic: Yes alert and Yes oriented x3 Spine SPINE TESTING CERVICAL THORACIC LUMBAR Musculoskeletal Strength 0=absent - 5=normal Details: Examination of the spine shows midline paraspinal tenderness to lower lumbar spine. Neurologic evaluation of upper and lower extremity shows 5 x 5 power normal shows normal sensations in all dermatomes. Inessa's is negative. Romberg's is positive. Tandem gait shows severe imbalance. She has a forward stooping posture. Coding Level of Care Code Off vis,est,level 4 Diagnoses Spondylolisthesis, lumbar region M43.16 Spinal stenosis of lumbar region with neurogenic claudication M48.062 Time Spent (min) 35 Assessment and Plan Assessment and Plan (1) Spondylolisthesis, lumbar region: Status: Acute (2) Spinal stenosis of lumbar region with neurogenic claudication: Status: Acute Plan I again reviewed x-rays and MRI of the lumbar spine with her. She has L4-5 spondylolisthesis with facet synovial cyst and stenosis. I explained to her options of treatment which include continued nonoperative treat measures versus surgery. The epidural injections through pain management did give her some temporary relief but this is not long-lasting. She is hoping to avoid surgical intervention. She is also tried a long course of physical therapy without much relief. I explained to her that lumbar surgery will not improve her balance which is residual from her cervical spine surgery and myelopathy. I explained to her that the surgery in the lower back cannot guarantee complete pain elimination and she may continue to have baseline pain and difficulty with mobility due to her balance issues. She has significant osteopenia which may further complicate her surgery. L4-5 decompression fusion with anterior posterior fusion with possible cement augmentation was discussed in detail. The risks benefits and alternatives were discussed in detail. The risks include but are not limited to infection, bleeding, injury to nerves and vessels, need for blood transfusion, pseudoarthrosis, hardware failure, need for further procedures, need for cement augmentation, cement embolism, DVT, pulmonary embolism, visceral injury, ileus, persistent pain, adjacent segment degeneration, pneumonia, atelectasis, cardiopulmonary event. Patient understands and agrees to proceed with surgery. Consent was signed. All postoperative restrictions were discussed in detail as well. All questions were answered.
[2023-12-18 12:19] LABS: Bedside Glucose 140 mg/dL (74-106)
[2023-12-18] MEDS: Cefazolin 2 GM in 0.9% Normal Saline (100mL Bag) 100 ML IV ×2 (12:23→20:42)
--- NOTE | 2023-12-18 12:40 | RAD_ITS ---
STUDY: X-RAY - LUMBAR SPINE REASON FOR EXAM: Female, 63 years old. Posterior fusion at L4-5. Intraoperative digital documentation views. TECHNIQUE: 6 intraoperative digital documentation view(s) of the lumbar spine were obtained. COMPARISON: Lumbar spine x-rays dated August 07, 2023. FINDINGS: 6 intraoperative digital documentation views show L4-5 fusion with intervertebral disc prosthesis. RAD/Lumbar Spine 2 or 3 Views IMPRESSION: Intraoperative digital documentation views. Electronically Signed: Jere Ramos MD at 15:59 EDT ,
[2023-12-18] MEDS: Ropivacaine 0.5% 30 ML Vial (15:32)
--- NOTE | 2023-12-18 15:53 | PCM.OPRPT ---
Report of Operation Date of Procedure: 12/18/23 Description of Surgical Findings:: Preoperative diagnosis: L4-5 spondylolisthesis, stenosis with neurogenic claudication, facet synovial cyst Postoperative diagnosis: Same Name of procedures L4-5 oblique lumbar interbody fusion (OLIF), minimally invasive left sided approach, lateral decubitus: ? L4-5 anterolateral spinal fusion 77542 ? L4-5 insertion of cage [id number] ? Bone graft aspirate left iliac crest separate incision ? Allograft cancellous chips Attending Surgeon: Dr. Harvey Cordero Estimated blood loss: 30 mL Anesthesia: General Complications: None Indications: Patient is a 63-year-old pleasant lady who has had a long history of low back pain and bilateral lower extremity pain, difficulty walking distances. Xrays & MRI revealed L4-5 subtle spondylolisthesis with facet synovial cyst and lateral recess stenosis. After undergoing a prolonged period of nonoperative treatment, the patient elected to undergo surgical decompression & fusion. All surgical options were discussed with the patient including anterior and posterior approaches. All risks and benefits associated with the procedure were explained to the patient. The risks include but are not limited to infection, bleeding, injury to nerves and vessels including major vessels like IVC and aorta, persistent paresthesia, persistent pain, dural tear, need for further procedures, adjacent segment degeneration, pseudoarthrosis, hardware failure, retrograde ejaculation, paralytic ileus, etc. Procedure: The patient was identified in the preoperative holding suite using Unique patient identifiers. Skin was marked, consent was reviewed, and all questions were answered. The patient was then brought back to the operative room. A surgical timeout was performed to make sure correct procedure was being done on the correct patient and all operative room staff were on the same page. General endotracheal anesthesia was then given to the patient. Burrows catheter was inserted. The patient was then carefully positioned in right lateral decubitus position with the left side up on a regular OR table. Axillary roll was placed and all bony prominences were well- padded. Hip positioners were placed in the posterior buttocks and anterior sternal area. The surgical area was prepped and draped in usual fashion. Preoperative antibiotic was injected IV as preoperative antibiotic. A final timeout was then again done just before starting the procedure. A 2 inch incision oblique was taken in the left lower quadrant of the abdomen 2 fingerbreadths away from the iliac crest and the lower ribs. Sharp dissection with Bovie was carried out up to the fascia covering the external oblique. The external oblique, internal oblique and transversus abdominis muscles were split along the muscle fibers and retroperitoneal space was entered. Sponge sticks were utilized to move the bowel and peritoneum pro-fp-uoe-way and psoas muscle was exposed staying within the retroperitoneal plane. [employer]unalytics retractor system was positioned and the retractor blade was applied onto the psoas. The interval between psoas and midline structures was developed and appropriate retractors were placed. Once adequate interval was cleared, a disc space was identified and a marker x-ray was taken. This identified the L4-5 disc level. Annulotomy was done with a long handled knife. Pituitary was used to remove disc material. Curettes were used to prepare the endplates. Disc space spreaders were utilized to distract and increase the disc height. Near complete discectomy was performed. Smaller disc distractors were also used to bluntly perform a contralateral annulotomy. Trials of serially increasing sizes were used. A Jamshidi needle was used to aspirate bone marrow from the left anterior iliac crest through a separate incision and this aspirate was mixed with the allograft bone chips. A Depuy [place] cage of size of the 18 x 45 x 12 mm with 15 degrees lordosis was packed with corticocancellous allograft bone chips mixed with bone marrow aspirate. This was inserted into the L4-5 disc space. AP and lateral C-arm pictures were taken to confirm good position of the cage. Some bone chips were also packed around the cages. Screw with washer was placed into the lower L4 body with a washer partially covering the cage at L4-5. Hemostasis was confirmed. The retractor blades were removed. Closure was done in layers with a continuous strand of # 1 Vicryl in all muscle layers. 2-0 Vicryl was used for subcutaneous tissue and 4-0 for Monocryl for the skin. Steri-Strips were applied and 4 x 4 gauze and Tegaderm were applied. Surgeon: Harvey Cordero Admit VTE Documentation VTE Mechan Device Prophylaxis: SCD's Procedures Musculoskeletal [id number]: Other Procedure See Report
--- NOTE | 2023-12-18 15:58 | PCM.OPRPT ---
Report of Operation Date of Procedure: 12/18/23 Description of Surgical Findings:: Preoperative diagnosis: L4-5 spondylolisthesis, stenosis with neurogenic claudication, facet synovial cyst Postoperative diagnosis: Same Name of procedures: L4-5 posterior percutaneous pedicle screw instrumented fusion, prone: ? L4-5 posterior spinal fusion 24607 ? L4-5 posterior pedicle screw instrumentation 99789 ? Allograft cancellous chips [id number] Attending Surgeon: Dr. Harvey Cordero Asst surgeon: Dr. Roger Noble Estimated blood loss: 30 mL (total for entire case) Anesthesia: General Complications: None Description of procedure: After the anterior procedure was complete, the patient was then turned supine. The patient was then transferred to Jarred table in prone position. Back was prepped and draped in usual fashion. C-arm AP view was then taken. C-arm was positioned in a way that L4 was centralized and superior endplate of was parallel to the beam. Spinous process was centered between the pedicles. Midline was marked with skin marker and lateral borders of the pedicles were also marked. Skin marker was also utilized to morenita transversely across the middle of the pedicles at L4. 2 longitudinal paramedian incisions of 1 inch were placed. The fascia was incised vertically. Finger dissection was utilized to palpate the transverse process and facet joint. Viper Prime screws with towers were inserted and docked onto the transverse processes. This was then slowly moved medially to reach the superior articular process of L4. This was then confirmed on C-arm and then a mallet was utilized to drive the trocar into the pedicle going up to the medial wall of the pedicle on AP view. This was performed both sides. C-arm lateral view confirmed that the tip of the trocar was in the vertebral body, and the screw was advanced into the pedicle and vertebral body. This was repeated similarly at L5. Screw sizes were 7 x 45 mm at L4 and L5 bilaterally. 40 mm precontoured titanium 5.5 mm lordotic vj on Both sides were then passed through the screw extensions and reduced down to the screws with the help of Arden Reed instrumentation system on both sides. AP and lateral view of the C-arm showed good positioning of the screws and cages. Final tightening with the torque screwdriver was then completed. Rogerio was utilized to roughen the facet joint at L4-5 on the left side. Cancellous allograft bone chips mixed with bone marrow aspirate were then placed over this decorticated area. Hemostasis was achieved. Closure was done in layers with 0 Vicryls for the fascia, 2-0 Vicryls for the subcutaneous tissue, and Monocryl for the skin. Dermabond was applied. Dressings were applied covered with Tegaderm. The patient was then turned supine onto a hospital bed. The patient was extubated and taken to PACU in stable condition. The patient tolerated the procedure well and no complications occurred. Depuy Babb cage & Viper Prime minimally invasive pedicle screw instrumentation system was utilized in this case. No dural tear was identified intraoperatively. I was present for the entirety of the case and performed the surgery. Surgeon: Harvey Cordero computational physicist: Roger Noble Admit VTE Documentation VTE Mechan Device Prophylaxis: SCD's Procedures Musculoskeletal [id number]: Other Procedure See Report
--- NOTE | 2023-12-18 16:42 | CON.PCM.HO_ITS ---
Assessment & Plan Assessment/Plan (1) Spinal stenosis at L4-L5 level: PLAN: Plan #Spinal stenosis with spondylolisthesiss of L4-5 * s/p spinal fusion of L4-5 * incentive spirometry * PT/OT On board * pain management as per spinal surgery * fall precautions * #Hypoxia: * on 4L of oxygen. Likely as a result of surgery. * Incentive spirometry. * Breathing treatments with bronchodilators. * To wean off of oxygen as patient becomes more awake and responsive. #History of psoriatic arthritis: on ixekizumab q4 weekly #Depression: on escitalopram #Urinary retention: on desmopressin DVT prophylaxis: as per primary team Thank you for the courtesy of the consult. The hospitalist service will continue to follow with you. HPI Consult Data Date of Consult: 12/18/23 HPI Narrative Reason for Consultation: medical management HPI Narrative: DANA RAMSAY, is a 63 F with a PMH as outlined who was admitted to the service of spine surgery for L4-5 spinal stenosis o/a of L4-5 spondylolisthesis. Hospitalist service service was consulted for medical management Patient seen and examined after surgery. His son was by her bedside. He was still quite lethargic and then just been brought back from PACU. Just mumbled in response to voice call. Unable to do review of systems. She is on 4 L of oxygen. [facility] Medical History Wears glasses Post-menopausal Cancer Walker as ambulation aid Back pain Injury of head and neck Difficulty swallowing Smoker History of echocardiogram TB lung, latent Chronic bronchitis Neuropathy Vitamin D deficiency History of pneumonia Psoriatic arthritis Anxiety Hypertension Emphysema, unspecified COPD (chronic obstructive pulmonary disease) Spinal stenosis of cervical region History of uterine cancer Home Medications ?Medication ?Instructions ?Recorded ?Last Taken ?Type cholecalciferol (vitamin D3) 50 50 mcg PO DAILY SUPPLEMENT 08/03/20 12/17/23 History mcg (2,000 unit) capsule cgfgpoqvawuh-Py-ptql-minerals 27 1 tab PO DAILY SUPPLEMENT 01/10/21 12/17/23 History mg-0.4 mg tablet (One Daily Women's) ixekizumab 80 mg/mL subcutaneous 80 mg subcut Q4W PSORIATIC 08/07/23 11/21/23 History auto-injector (Taltz Autoinjector) ARTHRITIS calcium 650 mg-vitamin D3 12.5 1 tab PO DAILY SUPPLEMENT 10/19/23 12/17/23 History mcg-vitamin K 40 mcg chewable tablet (Viactiv) escitalopram oxalate 20 mg tablet 20 mg PO QHS ANTIDEPRESSANT #30 10/31/23 12/17/23 Rx tabs desmopressin 0.2 mg tablet 0.2 mg PO BID BLADDER CONTROL 12/04/23 12/17/23 History varenicline 1 mg tablet (Chantix) 1 mg PO BID SMOKING CESSATION 12/04/23 12/17/23 History Allergy/AdvReac Type Severity Reaction Status Date / Time minocycline (Minocycline) Allergy Severe Anaphylaxis Verified 12/18/23 11:25 cyclobenzaprine (From Allergy Unknown Swelling Verified 12/18/23 11:25 Flexeril) apremilast (From Otezla) AdvReac Unknown Headache Verified 12/18/23 11:25 and weight loss gabapentin (From Neurontin) AdvReac Unknown Drowsiness Verified 12/18/23 11:25 nabumetone (From Relafen) AdvReac Unknown GI symptoms Verified 12/18/23 11:25 Family History Father COPD (chronic obstructive pulmonary disease) Diabetes Heart disease Mother Heart disease Surgical History H/O eye surgery History of partial hysterectomy History of shoulder surgery History of tonsillectomy and adenoidectomy H/O inguinal hernia repair History of breast augmentation S/P cervical spinal fusion H/O cervical discectomy Social History household members: none housing: house current occupational status: retired pets and animals: Yes pets and animals: dog(s) Smoking Status: Current every day smoker tobacco type: cigarettes Tobacco: How many years used: 45 Electronic Cigarette Use: not used second hand exposure: Yes alcohol intake: current alcohol intake frequency: holidays/special occasions only substance use type: does not use what type of physical activity do you participate in: none seatbelt use: always do you feel safe at home: Yes ROS Review of Systems ROS Unobtainable: due to encephalopathy Physical Exam Const Orientation / Consciousness: disoriented and lethargic HEENT normocephalic, head/scalp atraumatic and hearing grossly normal bilaterally Mouth: oral and palatal mucosa normal Eyes PERRL, EOMs intact bilaterally and conjunctivae normal Neck no lymphadenopathy and supple Resp Resp Narrative: Mildly diminished breath sounds bibasilarly. On 4 L of oxygen. No wheezes or crackles. Cardio regular rate, regular rhythm, S1 normal heart sound, S2 normal heart sound and no murmurs GI normal to inspection, nondistended, normoactive bowel sounds, soft to palpation, non-tender and non-distended Extremity normal to inspection Neuro Neuro Narrative: lethargic, drowsy Lab / Micro Data Labs: Laboratory Results - last 24 hr 12/18/23 11:31: POC Glucose 140 H Imaging Radiology Impression Lumbar Spine X-Ray 12/18/23 12:40 IMPRESSION: Intraoperative digital documentation views. Electronically Signed: Jere Ramos MD at 15:59 EDT Reading Location ID and State: [address] [place] [id number] , Service support , Charges/Coding Visit Charges Inpatient E&M: 12824 Subs Hosp L2
[2023-12-18] MEDS: Ketorolac 15 MG/ML Vial IV ×2 (20:39→22:59)
[2023-12-18] MEDS: Methocarbamol 500 MG Tablet 1000 MG PO (20:40)
[2023-12-18] MEDS: Escitalopram Oxalate 20 MG Tablet PO (22:50)
[2023-12-18] MEDS: Senna/Docusate Sodium 1 Tablet 2 TABLET PO (22:50)
[2023-12-18] MEDS: Varenicline 1 MG Tablet PO (22:52)
[2023-12-19 02:50] VITALS: BP 145/85; PULSE 72; RESP 16; TEMP 36.8; O2SAT 96; BMI 19.7
[2023-12-19] MEDS: Cefazolin 2 GM in 0.9% Normal Saline (100mL Bag) 100 ML IV (04:54)
[2023-12-19] MEDS: Acetaminophen 500 MG Tablet 1000 MG PO ×3 (06:34→19:58)
[2023-12-19 06:36] VITALS: BP 142/74; PULSE 65; RESP 16; TEMP 36.6; O2SAT 93; BMI 19.7
[2023-12-19 06:44] LABS: Hematocrit 32.6 % (37-47); Hemoglobin 10.8 g/dL (12.0-15.0); Mean Corp Hgb Conc 33.1 g/dL (32-36); Mean Corpuscular Hgb 31.6 pg (27.0-32.0); Mean Corpuscular Volume 95.3 fL (81-99); Mean Platelet Vol. 9.6 fl (6.2-12.0); Platelet Count 235 K/mm3 (150-450); RBC Distribution Width CV 12.5 % (11.6-14.6); RBC Distribution Width SD 43.8 fl (35.1-43.9); Red Blood Count 3.42 M/mm3 (4.2-5.4); White Blood Count 10.5 K/mm3 (4.4-11.0)
[2023-12-19 07:15] LABS: Anion Gap 5 (5-15); BUN 8 mg/dL (7-18); BUN/Creat Ratio 11.3 RATIO (10-20); Calcium,Total 8.3 mg/dL (8.5-10.1); Chloride 107 mmol/L (98-107); EST Glomerular Filtration Rate 88 mL/min (>60); Est Glom Filt Rate - Afr Amer 107 mL/min (>60); Estimated Creatinine Clearance 57.73 ml/min; Glucose 107 mg/dL (74-106); Potassium 4.3 mmol/L (3.5-5.1); Sodium Level 141 mmol/L (136-145)
[2023-12-19 08:08] VITALS: BMI 19.7
[2023-12-19] MEDS: Meloxicam 15 MG Tablet PO (08:21)
[2023-12-19] MEDS: Cholecalciferol (VIT D3) 25 MCG TABLET (1,000 UNITS) 50 MCG PO (08:21)
[2023-12-19] MEDS: Senna/Docusate Sodium 1 Tablet 2 TABLET PO ×2 (08:21→19:57)
[2023-12-19] MEDS: Varenicline 1 MG Tablet PO ×2 (08:21→19:56)
--- NOTE | 2023-12-19 09:30 | RAD_ITS ---
STUDY: X-RAY - LUMBAR SPINE REASON FOR EXAM: Female, 63 years old. Status post fusion. Follow-up. TECHNIQUE: 2 upright view(s) of the lumbar spine were obtained. COMPARISON: August 07, 2023 FINDINGS: Osteopenia. Normal lordosis. Minimal positional dextroscoliosis. Normal alignment of the vertebral bodies. Diffuse lower thoracic and lumbosacral facet sclerosis. New posterior fusion at L4-5 with intervertebral disc prosthesis with no complicating features. Contrast within the L4 and L5 vertebral bodies compatible with vertebroplasty. Normal soft tissues. RAD/Lumbar Spine 2 or 3 Views IMPRESSION: L4-5 fusion with no complicating features. Mild lower thoracic and lumbosacral spondylosis. Electronically Signed: Jere Ramos MD at 9:47 EDT ,
[2023-12-19 10:00] VITALS: BP 124/68; PULSE 69; RESP 18; TEMP 36.6; O2SAT 94
--- NOTE | 2023-12-19 11:20 | CASEMGMT ---
SUE MARCANO Assessment: Face to Face with pt for initial transition planning/care coordination assessment. SUE MARCANO introduced self and role at [facility], pt voices understanding and consents to assessment. Pt is A&O x4 and answers all questions appropriately at this time. Pt sitting up in chair. OT just finished evaluation. Discussed pt plan with therapist. Care providers, pharmacy, and demographics verified/updated. Admitting Dx: anterior and posterior L4-5 fusion PCP:Joe Specialists:Gil, stef, Loco, neuro; sherita Alcantar [facility]: yes LNOK: Louie Reyna, son; Jenelle Yen, sister Living Arrangements: Pt lives alone in a single story home with 1 step to enter. Pt reports she is I in ADL and IADLs. Pt denies concerns at home. Transportation: Pt drives self and denies concerns with transportation. Pt sister to assist with transportation until pt can drive again. DME:multiple walkers strategically placed around home for use, canes, built in shower seat HHC/SNF: Pt has had HHC in the past, unsure of name of agency. Pt denies SNF stays. Pt states no concerns with going home at time of dc. Pt states she does not have someone who can stay with her. She states she typically has balance issues at home. She denies the need for HHC. She states once she gets home, she will be fine. She states she has neighbors she can contact for any needs, they are supportive. Pt states no further concerns/needs. CM to follow. Advised pt to ask CM if any further question/concerns/needs arise, voices understanding. Pt Goal: Home Plan: Home [facility] CM
[2023-12-19] MEDS: Methocarbamol 500 MG Tablet 1000 MG PO ×3 (13:37→19:57)
[2023-12-19 14:00] VITALS: BP 130/74; PULSE 70; RESP 18; TEMP 36.7; O2SAT 98; BMI 19.7
--- NOTE | 2023-12-19 15:11 | PCM.PN.ORT ---
Subjective Subjective Postop day 1 status post L4-5 fusion. Pain relatively well-controlled. Saw her seated on the recliner this afternoon. No flatus yet. Objective Data Objective Data Vital Signs: Vital Signs Temp Pulse Resp BP Pulse Ox O2 Del Method O2 Flow Rate 98 F 69 18 124/68 H 94 Room Air 4 12/19/23 10:00 12/19/23 10:00 12/19/23 10:00 12/19/23 10:00 12/19/23 10:00 12/19/23 10:00 12/18/23 17:15 Oxygen Flow Rate (L/min) 4 Oxygen Delivery Method Room Air Weight: 115 lb Body Mass Index (BMI) 19.7 Intake & Output: Intake and Output for Last 24 Hours 12/17/23 12/18/23 12/19/23 23:59 23:59 23:59 Intake Total 229.5 / 529.5 931.5 / 931.5 Output Total 400 / 400 Balance 229.5 / 529.5 531.5 / 531.5 Lab / Micro Data 12/19/23 06:24 12/19/23 06:24 Labs: Laboratory Results - last 24 hr 12/19/23 06:24: WBC 10.5, RBC 3.42 L, Hgb 10.8 L, Hct 32.6 L, MCV 95.3, MCH 31.6, MCHC 33.1, RDW Std Deviation 43.8, RDW Coeff of Bharath 12.5, Plt Count 235, MPV 9.6, Sodium 141, Potassium 4.3, Chloride 107, Carbon Dioxide 29.0, Anion Gap 5, BUN 8, Creatinine 0.70, Estim Creat Clear Calc 57.73, Est GFR (MDRD) Af Amer 107, Est GFR (MDRD) Non-Af 88, BUN/Creatinine Ratio 11.3, Glucose 107 H, Calcium 8.3 L Micro: Microbiology 12/11/23 14:08 Swab (Method) Nasal Screen MRSA/MSSA - Final Radiography Diagnostic Testing: Radiology Impression Lumbar Spine X-Ray 12/18/23 12:40 IMPRESSION: Intraoperative digital documentation views. Electronically Signed: Jere Ramos MD at 15:59 EDT Reading Location ID and State: [facility] / [place] , Service support , Lumbar Spine X-Ray 12/19/23 09:30 IMPRESSION: L4-5 fusion with no complicating features. Mild lower thoracic and lumbosacral spondylosis. Electronically Signed: Jere Ramos MD at 9:47 EDT Reading Location ID and State: [address] [place] [address] , Service support , Physical Exam Narrative Dressing?CDI. Neurologic bilateral lower extremity shows 5 out of 5 power normal shows normal sensations in all dermatomes. Assessment & Plan Assessment/Plan (1) Status post lumbar spinal fusion: PLAN: Plan Postop day 1 status post L4-5 fusion. PT OT mobilization as frequently as tolerated. X-rays reviewed, look good. Clear liquid diet until passes flatus. Will start suppository tomorrow morning if no flatus. Discharge based on PT recommendations once passes flatus and tolerated solid diet. Will likely stay tonight.
[2023-12-19 18:07] VITALS: BMI 19.7
[2023-12-19] MEDS: Escitalopram Oxalate 20 MG Tablet PO (19:56)
[2023-12-19] MEDS: DESMOPRESSIN ACETATE 0.2 MG TABLET PO (19:58)
[2023-12-19 20:06] VITALS: BP 138/70; PULSE 77; RESP 16; TEMP 36.6; O2SAT 99
[2023-12-19 22:45] VITALS: BMI 19.7
[2023-12-20 02:37] VITALS: BP 132/65; PULSE 66; RESP 16; TEMP 36.8; O2SAT 99
[2023-12-20] MEDS: oxyCODONE 5 MG Tablet PO (02:40)
[2023-12-20] MEDS: Morphine 2 MG/ML Syringe IV (03:30)
[2023-12-20] MEDS: 0.9% Saline Lock 10 ML Syringe IV (03:31)
[2023-12-20] MEDS: Acetaminophen 500 MG Tablet 1000 MG PO (06:51)
[2023-12-20 09:04] VITALS: BP 120/80; PULSE 72; RESP 18; TEMP 37.2; O2SAT 95
[2023-12-20] MEDS: Cholecalciferol (VIT D3) 25 MCG TABLET (1,000 UNITS) 50 MCG PO (09:12)
[2023-12-20] MEDS: Meloxicam 15 MG Tablet PO (09:13)
[2023-12-20] MEDS: Varenicline 1 MG Tablet PO (09:13)
[2023-12-20] MEDS: Senna/Docusate Sodium 1 Tablet 2 TABLET PO (09:13)
[2023-12-20] MEDS: Methocarbamol 500 MG Tablet 1000 MG PO (09:13)
[2023-12-20] MEDS: DESMOPRESSIN ACETATE 0.2 MG TABLET PO (09:16)
--- NOTE | 2023-12-20 10:27 | CASEMGMT ---
Addendum entered by Janice Aguirre 12/20/23 13:29: Received returned call from [facility] that they are able to accept pt. ST requested ST be added to order for risk of choking. Added. HHC will see pt tomorrow. SUE MARCANO into pt room, pt aware. Answered pt questions regarding HHC. No further needs at this time. Pt ready for dc. Original Note: SUE MARCANO into pt room, pt sitting up in chair. Discussed HHC with patient and she is now agreeable to this. DC assistant manager trainee to provide pt with list and obtain 3 preferences. SUE MARCANO to follow. Updated ortho.
--- NOTE | 2023-12-20 11:25 | CASEMGMT ---
Discharge Planning A list of?HH providers including quality and resource use data and consistent with the patient's preferred geographic region, medical needs, and insurance network were printed and provided from the [employer] Guide. Izabela Salcido, Discharge Planning Asst.
[2023-12-20 11:54] VITALS: BP 133/77; PULSE 81; RESP 18; TEMP 36.9; O2SAT 98
--- NOTE | 2023-12-20 15:31 | PHA.DC.MR.R ---
Pharmacy [place] Med Reconciliation Pharmacy Service has performed discharge medication reconciliation for this patient. Medication education papers prepared, patient discharged when counseling was attempted. Medications reviewed. The patient's discharge medication list was reviewed for discrepancies and discrepancies were resolved. Medications at Discharge Home Medications cholecalciferol (vitamin D3) 50 mcg (2,000 unit) capsule 50 mcg PO DAILY SUPPLEMENT 08/03/20 gavzarcfyvcj-Tn-hojk-minerals 27 mg-0.4 mg tablet (One Daily Women's) 1 tab PO DAILY SUPPLEMENT 01/10/21 ixekizumab 80 mg/mL subcutaneous auto-injector (Taltz Autoinjector) 80 mg subcut Q4W PSORIATIC ARTHRITIS 08/07/23 calcium 650 mg-vitamin D3 12.5 mcg-vitamin K 40 mcg chewable tablet (Viactiv) 1 tab PO DAILY SUPPLEMENT 10/19/23 escitalopram oxalate 20 mg tablet 20 mg PO QHS ANTIDEPRESSANT #30 tabs 10/31/23 desmopressin 0.2 mg tablet 0.2 mg PO BID BLADDER CONTROL 12/04/23 varenicline 1 mg tablet (Chantix) 1 mg PO BID SMOKING CESSATION 12/04/23 meloxicam 15 mg tablet 15 mg PO DAILY 30 days #30 tabs 12/20/23 methocarbamol 500 mg tablet 500 mg PO TID PRN Pain/spasms 7 days #21 tabs 12/20/23 oxycodone 5 mg tablet 2.5 - 5 mg (0.5 - 1 x 5 mg) PO Q6H PRN pain 7 days #28 tabs 12/20/23 sennosides 8.6 mg-docusate sodium 50 mg tablet (Stool Softener-Stimulant Laxative) 2 tab PO BID PRN constipation 5 days #20 tabs 12/20/23
== END 2023-12-20 15:07 | disposition home health service (06) | DRG 454 ==
LOC: ACINP 12:18 → MS3 17:02
PROVIDERS: Anesthesiology; Admitting Provider Orthopaedic Surgery Orthopaedic Surgery of the Spine; PCP Family Medicine; Referring Provider Orthopaedic Surgery Orthopaedic Surgery of the Spine; Visit Provider Orthopaedic Surgery Orthopaedic Surgery of the Spine
PROC: 0SG03K1 Fusion of Lumbar Vertebral Joint with Nonautologous Tissue Substitute, Posterior Approach, Posterior Column, Percutaneous Approach (ICD-10-PCS; principal; 2023-12-18 12:00)
DX: M43.16 Spondylolisthesis, lumbar region (principal); G95.9 Disease of spinal cord, unspecified; L40.50 Arthropathic psoriasis, unspecified; I10 Essential (primary) hypertension; F17.210 Nicotine dependence, cigarettes, uncomplicated; M19.90 Unspecified osteoarthritis, unspecified site; M48.062 Spinal stenosis, lumbar region with neurogenic claudication; M47.817 Spondylosis without myelopathy or radiculopathy, lumbosacral region; R09.02 Hypoxemia; M85.80 Other specified disorders of bone density and structure, unspecified site
CPT/HCPCS: 36415; 72100; 76000; 80048; 82962; 83735; 85027; 86703; 86706; 86708; 86803; 86850; 86900; 86901; 87081; 92610; 94668; 97162; 97166; 97530; 97535; C1713; J7120; A4216; J2405; J3475

== ENCOUNTER → 2024-02-06 | Outpatient (CLI) | payer MEDICARE, SELFPAY ==
[2024-02-06 14:16] LABS: Mucous, Urine 0 SEEN /hpf (<or=2+); Red Blood Cells-Urine 0 SEEN /hpf (0-5)
[2024-02-06 17:46] LABS: Color, Urine Yellow (Yellow); Glucose, Dipstick Normal (Normal); Ketone-Dipstick Negative (Negative); Leukocyte Esterase-Dipstick 25 /ul (Negative); Nitrite-Dipstick Negative (Negative); Occult Blood-Urine 10 /ul (Negative); Protein-Dipstick Negative (Negative); Specific Gravity, Urine 1.005 (1.002-1.030); Urine Bilirubin Dipstick Negative (Negative); Urine Clarity Clear (Clear); Urine Urobilinogen Normal (Normal)
[2024-02-06 17:48] LABS: Absolute Neutrophil Count 5.1 X10^3/uL (2.0-7.7); Basophil# 0.06 X10^3/uL; Basophil% 0.8 % (0-1); Eosinophil# 0.04 X10^3/uL; Eosinophils% 0.5 % (0-5); Hematocrit 40.6 % (37-47); Hemoglobin 13.4 g/dL (12.0-15.0); Lymphocyte % 25.4 % (19-41); Mean Corpuscular Hgb 30.8 pg (27.0-32.0); Mean Corpuscular Volume 93.3 fL (81-99); Mean Platelet Vol. 10.2 fl (6.2-12.0); Monocyte# 0.59 X10^3/uL; Monocyte% 7.5 % (0-10); NRBC Flagged by Analyzer 0 % (0-5); Neutrophil # 5.14 X10^3/uL (2.7-7.7); Neutrophil % 65.4 % (47-70); Platelet Count 314 K/mm3 (150-450); RBC Distribution Width CV 11.9 % (11.6-14.6); Red Blood Count 4.35 M/mm3 (4.2-5.4); White Blood Count 7.9 K/mm3 (4.4-11.0)
[2024-02-06 17:55] LABS: Bacteria 1+ /hpf (None Seen); Squamous Epithelial Cells - UA 0-5 SEEN /hpf (5-10); White Blood Cells 0-5 SEEN /hpf (0-5)
[2024-02-06 18:46] LABS: Vitamin D,25 Hydroxy 54.5 ng/mL
[2024-02-06 21:12] LABS: ALB/GLOB Ratio 1.5 RATIO (0.9-2.4); AST(SGOT) 19 U/L (15-37); Alanine Aminotransfer ALT/SGPT 26 U/L (13-56); Albumin, Serum 4.6 g/dL (3.2-5.0); Alkaline Phosphatase 83 U/L (45-117); Anion Gap 6 (5-15); BUN 8 mg/dL (7-18); BUN/Creat Ratio 10.6 RATIO (10-20); Calcium,Total 9.6 mg/dL (8.5-10.1); Chloride 100 mmol/L (98-107); Creatinine, Serum 0.76 mg/dL (0.55-1.02); EST Glomerular Filtration Rate 81 mL/min (>60); Est Glom Filt Rate - Afr Amer 99 mL/min (>60); Globulin 3.1 g/dL (2.2-4.2); Glucose 108 mg/dL (74-106); Potassium 4.2 mmol/L (3.5-5.1); Prealbumin 18.5 mg/dL (20.0-40.0); Protein, Total 7.7 g/dL (6.4-8.2); Sodium Level 134 mmol/L (136-145)
== END | disposition home or self-care (01) ==
LOC: MFPLAB 14:10
PROVIDERS: PCP Family Medicine; Visit Provider Family Medicine
DX: N39.41 Urge incontinence (principal); E46 Unspecified protein-calorie malnutrition; F17.210 Nicotine dependence, cigarettes, uncomplicated; M85.80 Other specified disorders of bone density and structure, unspecified site
CPT/HCPCS: 36415; 80053; 81001; 82306; 84134; 85025; 87086; 87088; 87186

== ENCOUNTER 2024-03-16 13:28 | Observation (INO) | payer MEDICARE, SELFPAY ==
[2024-03-16 13:32] VITALS: BP 135/78; PULSE 88; RESP 18; TEMP 37.1; O2SAT 97
[2024-03-16 13:46] VITALS: BMI 18.8
--- NOTE | 2024-03-16 14:29 | CT_ITS ---
STUDY: CT ABDOMEN AND PELVIS WITH CONTRAST REASON FOR EXAM: Female, 64 years old. Weakness, previous back surgery RADIATION DOSAGE (If Supplied By Facility): CTDIvol = ( 11.20 ) mGy, DLP = ( 405.05 ) mGycm TECHNIQUE: Transaxial images were obtained from the dome of the diaphragm to the symphysis pubis without oral contrast. IV 100mL Isovue-370 was administered. Sagittal and coronal images were reconstructed. Individualized dose optimization techniques were used for this CT. COMPARISON: None. FINDINGS: The visualized lung bases are unremarkable. The visualized portions of the heart are within normal limits. There are bilateral breast implants. Normal liver. Normal gallbladder and extrahepatic biliary system. Normal spleen. Normal pancreas. Normal bilateral adrenal glands. Normal right kidney. Normal left kidney. Normal visualized stomach. Normal small intestine. There are multiple colonic diverticula consistent with diverticulosis. There is non-visualization of the appendix. There is mild atherosclerotic calcification of the abdominal aorta, without a demonstrated aneurysm. Normal inferior vena cava. Normal retroperitoneum. Normal urinary bladder. There is absence of the uterus consistent with a prior hysterectomy. There is no free fluid in the abdomen or pelvis. There is postoperative change in the right lower abdominal wall with surgical clips. There is degenerative in postoperative change of the spine. There is posterior fusion at L4-5 including bilateral pedicle screws and hardware in the disc space. CT/Abdomen/Pelvis W IV Cont ONLY IMPRESSION: Colonic diverticulosis. No obstruction or abscess. Electronically Signed: James Means MD at 15:50 EDT ,
--- NOTE | 2024-03-16 14:29 | EKG12_ITS ---
Test Reason : Blood Pressure : / mmHG Vent. Rate : 075 BPM Atrial Rate : 075 BPM P-R Int : 144 ms QRS Dur : 084 ms QT Int : 404 ms P-R-T Axes : 080 084 060 degrees QTc Int : 451 ms Normal sinus rhythm Biatrial enlargement Possible Anterior infarct , age undetermined Abnormal ECG Confirmed by BASIL NAILS, VENU ([id number]), offline editor DIAN LUNA ([id number]) on 03/21/2024 6:49:03 AM Referred By: Confirmed By:NOE GRACIA MD
--- NOTE | 2024-03-16 14:29 | CT_ITS ---
STUDY: CT BRAIN WITHOUT CONTRAST REASON FOR EXAM: Female, 64 years old. Weakness RADIATION DOSAGE (If Supplied By Facility): CTDIvol = ( 44.99 ) mGy, DLP = ( 779.24 ) mGycm TECHNIQUE: Transaxial CT imaging of the brain was performed without administration of intravenous contrast material. Individualized dose optimization techniques were used for this CT. COMPARISON: MRI September 28, 2022 FINDINGS: Normal soft tissue structures. Normal calvarium. There is mild cerebral atrophy with widening of the extra-axial spaces and ventricular dilatation. Normal white matter tracts of the cerebral hemispheres. Normal basal ganglia and thalami. Normal brainstem. Normal cerebellum. There is no intracranial hemorrhage. There are no findings of an acute ischemic infarction. Normal visualized paranasal sinuses. CT/Brain/Head without Contrast IMPRESSION: Chronic involutional changes of the brain. Electronically Signed: James Means MD at 15:43 EDT ,
[2024-03-16] MEDS: 0.9% Normal Saline (1000mL) 1,000 ML 999 ML IV (14:40)
[2024-03-16 14:41] LABS: Absolute Lymphocyte Count 1.33 X10^3/uL (0.83-4.51); Absolute Neutrophil Count 6.3 X10^3/uL (2.0-7.7); Basophil# 0.06 X10^3/uL; Basophil% 0.7 % (0-1); Eosinophil# 0.04 X10^3/uL; Eosinophils% 0.5 % (0-5); Hematocrit 36.8 % (37-47); Hemoglobin 12.8 g/dL (12.0-15.0); Lymphocyte # 1.33 X10^3/ul (0.83-4.51); Lymphocyte % 15.9 % (19-41); Mean Corp Hgb Conc 34.8 g/dL (32-36); Mean Corpuscular Hgb 31.9 pg (27.0-32.0); Mean Corpuscular Volume 91.8 fL (81-99); Mean Platelet Vol. 10.1 fl (6.2-12.0); Monocyte# 0.58 X10^3/uL; Monocyte% 6.9 % (0-10); NRBC Flagged by Analyzer 0 % (0-5); Neutrophil # 6.34 X10^3/uL (2.7-7.7); Neutrophil % 75.6 % (47-70); Platelet Count 286 K/mm3 (150-450); RBC Distribution Width CV 12.4 % (11.6-14.6); RBC Distribution Width SD 41.9 fl (35.1-43.9); Red Blood Count 4.01 M/mm3 (4.2-5.4); White Blood Count 8.4 K/mm3 (4.4-11.0)
[2024-03-16 14:49] LABS: Mucous, Urine 0 SEEN /hpf (<or=2+); Red Blood Cells-Urine 0 SEEN /hpf (0-5); Squamous Epithelial Cells - UA 0 SEEN /hpf (5-10)
[2024-03-16 14:51] LABS: Color, Urine Yellow (Yellow); Glucose, Dipstick Normal (Normal); Ketone-Dipstick Negative (Negative); Leukocyte Esterase-Dipstick 100 /ul (Negative); Nitrite-Dipstick Positive (Negative); Occult Blood-Urine 10 /ul (Negative); Protein-Dipstick 15 mg/dl (Negative); Urine Bilirubin Dipstick Negative (Negative); Urine Clarity Clear (Clear); Urine Urobilinogen Normal (Normal); Urine pH 6.5 (5.0 - 8.0)
[2024-03-16 14:56] LABS: Bacteria 1+ /hpf (None Seen); White Blood Cells 0-5 SEEN /hpf (0-5)
[2024-03-16 14:59] LABS: ALB/GLOB Ratio 1.6 RATIO (0.9-2.4); AST(SGOT) 22 U/L (15-37); Alanine Aminotransfer ALT/SGPT 26 U/L (13-56); Albumin, Serum 4.2 g/dL (3.2-5.0); Alkaline Phosphatase 61 U/L (45-117); Anion Gap 5 (5-15); BUN 16 mg/dL (7-18); BUN/Creat Ratio 20.4 RATIO (10-20); Calcium,Total 8.8 mg/dL (8.5-10.1); Chloride 103 mmol/L (98-107); Creatinine, Serum 0.78 mg/dL (0.55-1.02); EST Glomerular Filtration Rate 78 mL/min (>60); Est Glom Filt Rate - Afr Amer 95 mL/min (>60); Estimated Creatinine Clearance 54.27 ml/min; Globulin 2.7 g/dL (2.2-4.2); Glucose 115 mg/dL (74-106); Lipase 29 U/L (13-75); Potassium 3.7 mmol/L (3.5-5.1); Protein, Total 6.9 g/dL (6.4-8.2); Sodium Level 137 mmol/L (136-145); Troponin-I HS 7 pg/mL (3.0-54.0)
[2024-03-16 15:30] VITALS: BP 136/83; PULSE 78; RESP 16; O2SAT 99
--- NOTE | 2024-03-16 15:55 | EX.ED.DYSGE1 ---
HPI History of Present Illness Chief Complaint: Weakness Narrative Narrative: Patient is a 64-year-old female with past medical history of hypertension, COPD, neuropathy, previous spinal surgery/fusion back in November who presented to the emerged part with a chief complaint of bilateral lower extremity weakness. Patient states that for the past several days she has become weaker and weaker and she states that starting yesterday she was unable to ambulate she had to crawl around on the floor. She states that she called her surgeon and they advised her to come here for the valuation management. States that she does ambulate with a walker and notes that she has several walkers in the home. Patient denies any falls or any other injuries. Patient is concerned that she may have MS as her younger brother has MS and she is fearful that if she has that she will have to move in with somebody and cannot live by herself anymore. [facility] Medical History Wears glasses Post-menopausal Cancer Walker as ambulation aid Back pain Injury of head and neck Difficulty swallowing Smoker History of echocardiogram TB lung, latent Chronic bronchitis Neuropathy Vitamin D deficiency History of pneumonia Psoriatic arthritis Anxiety Hypertension Emphysema, unspecified COPD (chronic obstructive pulmonary disease) Spinal stenosis of cervical region History of uterine cancer Home Medications ?Medication ?Instructions ?Recorded ?Last Taken ?Type cholecalciferol (vitamin D3) 50 50 mcg PO DAILY SUPPLEMENT 08/03/20 03/16/24 History mcg (2,000 unit) capsule mmczpepweoen-Nm-kzle-minerals 27 1 tab PO DAILY SUPPLEMENT 01/10/21 03/16/24 History mg-0.4 mg tablet (One Daily Women's) ixekizumab 80 mg/mL subcutaneous 80 mg subcut Q4W PSORIATIC 08/07/23 11/21/23 History auto-injector (Taltz Autoinjector) ARTHRITIS calcium 650 mg-vitamin D3 12.5 1 tab PO DAILY SUPPLEMENT 10/19/23 03/16/24 History mcg-vitamin K 40 mcg chewable tablet (Viactiv) escitalopram oxalate 20 mg tablet 20 mg PO QHS ANTIDEPRESSANT #30 10/31/23 03/15/24 Rx tabs varenicline 1 mg tablet (Chantix) 1 mg PO BID SMOKING CESSATION 12/04/23 03/16/24 History vibegron 75 mg tablet (Gemtesa) 75 mg PO DAILY 03/16/24 03/16/24 History Allergy/AdvReac Type Severity Reaction Status Date / Time minocycline (Minocycline) Allergy Severe Anaphylaxis Verified 03/16/24 13:31 cyclobenzaprine (From Allergy Unknown Swelling Verified 03/16/24 13:31 Flexeril) Family History Father COPD (chronic obstructive pulmonary disease) Diabetes Heart disease Mother Heart disease Surgical History H/O eye surgery History of partial hysterectomy History of shoulder surgery History of tonsillectomy and adenoidectomy H/O inguinal hernia repair History of breast augmentation S/P cervical spinal fusion H/O cervical discectomy Social History household members: none housing: house current occupational status: retired pets and animals: Yes pets and animals: dog(s) Smoking Status: Current every day smoker tobacco type: cigarettes Tobacco: How many years used: 45 Electronic Cigarette Use: not used second hand exposure: Yes alcohol intake: current alcohol intake frequency: holidays/special occasions only substance use type: does not use what type of physical activity do you participate in: none seatbelt use: always do you feel safe at home: Yes ROS ROS ED ROS Narrative Constitutional: Denies any fevers, chills, headaches, lightheadedness, dizziness Eyes: Denies change in vision double vision blurry vision Cardiovascular: Denies chest pain or palpitations Respiratory: Denies coughing wheezing shortness of breath Abdomen: Denies abdominal pain nausea vomit diarrhea : Patient states that she has chronic urinary incontinence that has been going on since her surgery nothing new Neurological: Denies any numbness or tingling complains of generalized weakness as noted above Skin: Denies rashes or lesions EXAM Physical Exam Narrative Exam Narrative: General: Patient was lying in bed rest comfortably did not appear to be anxious Head: Atraumatic, normocephalic Eyes: PERRL bilaterally, EOMI bilateral, no conjunctival injection noted Neck: Soft, supple, trachea midline, no tenderness palpation midline cervical spine patient has full range of motion of her neck Cardiovascular: Regular rate and rhythm no murmurs gallops rubs noted Respiratory: Clear to auscultation bilaterally no rales rhonchi wheeze noted Abdomen: Soft, nondistended, tender to palpation, bowel sounds present x 4 Musculoskeletal: No tenderness palpation midline of the thoracolumbar spine Extremities: +4/5 strength noted in the bilateral upper and lower extremities, no pedal edema on exam, DP pulses +2/4 in the bilateral extremities, radial pulses +2/4 in the bilateral upper extremities Neurological: Patient was following commands knew that she was at [facility] year is 2023. NIH of 0 GCS of 15 patient is sensation grossly intact on exam no concern for saddle anesthesia Skin: Warm, dry, intact Const Vital Signs: 03/16/24 13:32 03/16/24 15:30 03/16/24 17:00 Temperature 98.7 F Temperature Source Temporal Pulse Rate 88 78 83 Respiratory Rate 18 16 15 Blood Pressure 135/78 H 136/83 H 153/80 H Blood Pressure Mean 97 100 104 Pulse Ox 97 99 100 Oxygen Delivery Method Room Air Room Air MDM MDM MDM Narrative Medical decision making narrative: Patient is a 64-year-old female who presented to the emerged part with a chief complaint of generalized weakness and difficulty with ambulation. Patient will have workup performed here on the differential diagnose includes but limited to UTI, COVID, electrolyte abnormality, ACS, intra-abdominal process. Once workup is obtained and reviewed she will be reevaluated. Insert supervising blood sugar patient CBC reviewed was largely unremarkable no evidence of leukocytosis white blood count normal at 8.4, hemoglobin stable 12.8, platelet count normal at 286. Patient's sodium normal 137, potassium normal at 3.7, creatinine normal at 0.78. Patient's glucose was notably 115, calcium normal at 8.8. Patient's AST and ALT were 22 and 26 respectively. Patient's troponin normal at 7, lipase normal at 29. Patient's urinalysis showed positive nitrates 100 leukocyte esterase however there is 0-5 white blood cells with 1+ bacteria she does not have any urinary symptoms currently this was sent for culture. No antibiotics indicated at this point in time. Patient's head CT was reviewed and showed no acute intracranial hemorrhage there is chronic involutional changes noted. Patient CT abdomen pelvis with IV contrast was reviewed as well which showed no acute abdominal pathology she has colonic diverticulosis no obstruction or abscesses noted. Patient's EKG was reviewed and showed sinus rhythm with a rate of 75 bpm. Patient was attempted to be ambulated here in the emergency department and she states that she is too weak to walk. Patient is agreeable to admission to the hospital for further workup and potential placement. Patient is requesting x-ray of her neck which was ordered. Patient's son at bedside is also agreeable with this plan. Patient's case was discussed with hospitalist Dr. Arias who accept patient for admission. All question concerns were answered. Lab Data Labs: Laboratory Results - last 24 hr 03/16/24 03/16/24 13:54 14:43 WBC 8.4 RBC 4.01 L Hgb 12.8 Hct 36.8 L MCV 91.8 MCH 31.9 MCHC 34.8 RDW Std Deviation 41.9 RDW Coeff of Bharath 12.4 Plt Count 286 MPV 10.1 Immature Gran % (Auto) 0.400 Neut % (Auto) 75.6 H Lymph % (Auto) 15.9 L [place] % (Auto) 6.9 Eos % (Auto) 0.5 Baso % (Auto) 0.7 Absolute Neuts (auto) 6.3 Absolute Lymphs (auto) 1.33 Nucleated RBC % 0 Sodium 137 Potassium 3.7 Chloride 103 Carbon Dioxide 29.0 Anion Gap 5 BUN 16 Creatinine 0.78 Estim Creat Clear Calc 54.27 Est GFR (MDRD) Af Amer 95 Est GFR (MDRD) Non-Af 78 BUN/Creatinine Ratio 20.4 H Glucose 115 H Calcium 8.8 Total Bilirubin 0.70 AST 22 ALT 26 Alkaline Phosphatase 61 Troponin I High Sens 7 Total Protein 6.9 Albumin 4.2 Globulin 2.7 Albumin/Globulin Ratio 1.6 Lipase 29 Urine Color Yellow Urine Clarity Clear Urine pH 6.5 Ur Specific [place] 1.010 Urine Protein 15 H Urine Glucose (UA) Normal Urine Ketones Negative Urine Occult Blood 10 H Urine Nitrite Positive H Urine Bilirubin Negative Urine Urobilinogen Normal Ur Leukocyte Esterase 100 H Urine RBC 0 SEEN Urine WBC 0-5 SEEN Ur Squamous Epith Cells 0 SEEN Urine Bacteria 1+ Urine Mucus 0 SEEN Radiography Diagnostic Testing: Clinical Impression(s) from Imaging Studies Abdomen/Pelvis CT 03/16/24 14:29 IMPRESSION: Colonic diverticulosis. No obstruction or abscess. Electronically Signed: James Means MD at 15:50 EDT , Brain CT 03/16/24 14:29 IMPRESSION: Chronic involutional changes of the brain. Electronically Signed: James Means MD at 15:43 EDT , Discharge Plan Triage Chief Complaint: Weakness ED Provider: Yuan Levine Dx/Rx/DC Orders Clinical Impression: Weakness Primary Care Provider: Wilmer Diaz
[2024-03-16 17:00] VITALS: BP 153/80; PULSE 83; RESP 15; O2SAT 100
--- NOTE | 2024-03-16 17:43 | PCM.HP.STD ---
[facility] - General General Date of Admission: 03/16/24 Date of Service: 03/16/24 Chief Complaint: Inability to ambulate HPI Narrative DANA RAMSAY, is a 64 F who presented to the emergency department at [facility] on 03/16/2024 complaining of the inability ambulate. She states that she has been having left leg weakness and as of recently her right leg has been weaker. She stated that the left leg weakness has been ongoing since her spinal surgery in November 2023 but recently her right leg has become her weaker leg. She denies any saddle anesthesia, tingling or numbness or urinary retention or bowel dysfunction. She states she has ongoing issues with urinary incontinence but never any retention. She states that throughout the week her leg weakness has been slowly progressing and if she feels like she probably has an MS like disease like her brother who has now had to leave with his son because of his disability. She states she sure there is something wrong with her brain and then later in the conversation she indicated it is coming from her neck. She does admit to previous cervical fusion and is brought her x-rays. It appears that she is fused in her upper and lower cervical region from 2 different procedures. She complains of some urinary frequency but denies any dysuria. She still smokes tobacco and admits to using about 5 cigarettes a day down from 20 to 25 cigarettes daily. Vital signs show a temperature of 98, blood pressure 171/90, heart rate 75, respiratory 14 oxygen saturation was 99% on room air. CBC is overall unremarkable. Chemistry panel was unremarkable other than mild hyperglycemia with a glucose of 115. Liver functions are normal. Lipase is normal. Her UA is suggestive of infection with nitrite, leuk esterase and 1+ bacteria. CT of the abdomen pelvis shows no acute processes. CT of the brain shows no acute processes. EKG was unremarkable. They did attempt to ambulate the patient in the emergency department indicated that she did so so until her son came in the room and then she collapsed but did not hit the ground as nursing caught her. Given her inability to ambulate she requires admission. [facility] Medical History Wears glasses Post-menopausal Cancer Walker as ambulation aid Back pain Injury of head and neck Difficulty swallowing Smoker History of echocardiogram TB lung, latent Chronic bronchitis Neuropathy Vitamin D deficiency History of pneumonia Psoriatic arthritis Anxiety Hypertension Emphysema, unspecified COPD (chronic obstructive pulmonary disease) Spinal stenosis of cervical region History of uterine cancer Home Medications ?Medication ?Instructions ?Recorded ?Last Taken ?Type cholecalciferol (vitamin D3) 50 50 mcg PO DAILY SUPPLEMENT 08/03/20 03/16/24 History mcg (2,000 unit) capsule oshqjptnougl-Ht-wqld-minerals 27 1 tab PO DAILY SUPPLEMENT 01/10/21 03/16/24 History mg-0.4 mg tablet (One Daily Women's) ixekizumab 80 mg/mL subcutaneous 80 mg subcut Q4W PSORIATIC 08/07/23 11/21/23 History auto-injector (Taltz Autoinjector) ARTHRITIS calcium 650 mg-vitamin D3 12.5 1 tab PO DAILY SUPPLEMENT 10/19/23 03/16/24 History mcg-vitamin K 40 mcg chewable tablet (Viactiv) escitalopram oxalate 20 mg tablet 20 mg PO QHS ANTIDEPRESSANT #30 10/31/23 03/15/24 Rx tabs varenicline 1 mg tablet (Chantix) 1 mg PO BID SMOKING CESSATION 12/04/23 03/16/24 History vibegron 75 mg tablet (Gemtesa) 75 mg PO DAILY 03/16/24 03/16/24 History Allergy/AdvReac Type Severity Reaction Status Date / Time minocycline (Minocycline) Allergy Severe Anaphylaxis Verified 03/16/24 13:31 cyclobenzaprine (From Allergy Unknown Swelling Verified 03/16/24 13:31 Flexeril) Family History Father COPD (chronic obstructive pulmonary disease) Diabetes Heart disease Mother Heart disease Surgical History H/O eye surgery History of partial hysterectomy History of shoulder surgery History of tonsillectomy and adenoidectomy H/O inguinal hernia repair History of breast augmentation S/P cervical spinal fusion H/O cervical discectomy Social History household members: none housing: house current occupational status: retired pets and animals: Yes pets and animals: dog(s) Smoking Status: Current every day smoker tobacco type: cigarettes Tobacco: How many years used: 45 Electronic Cigarette Use: not used second hand exposure: Yes alcohol intake: current alcohol intake frequency: holidays/special occasions only substance use type: does not use what type of physical activity do you participate in: none seatbelt use: always do you feel safe at home: Yes ROS Constitutional Constitutional: Reports weakness; Denies anorexia, change in weight, chills, fatigue, fever(s), malaise, night sweats or other Eyes Eyes: Denies blurry vision, change in eye color, change in vision, discharge from eye(s), double vision, erythema, eye pain, loss of vision or other ENT HEENT: Denies abnormal hearing, dysphagia, ear pain, epistaxis, headache(s), hearing loss, nasal congestion, nasal discharge, post nasal drip, sinus pressure, sore throat or other Cardiovascular Cardiovascular: Denies chest pain, claudication, dyspnea on exertion, edema, lightheadedness, orthopnea, palpitations, paroxysmal nocturnal dyspnea, rapid heart rate, syncope or other Respiratory/Chest Respiratory/Chest: Denies cough, dyspnea, excessive phlegm production, hemoptysis, productive cough, shortness of breath at rest, shortness of breath with exertion, wheezing or other Gastrointestinal Gastrointestinal: Denies abdominal pain, coffee ground emesis, constipation, diarrhea, dyspepsia, hematemesis, hematochezia, loose stools, melena, nausea, vomiting or other Genitourinary Genitourinary: Reports urinary frequency and urinary incontinence; Denies burning urination, difficulty urinating, dysuria, hematuria, nocturia, urinary hesitancy, urinary urgency or other Musculoskeletal Musculoskeletal: Reports back pain, joint stiffness and neck pain; Denies arthralgias, joint pain, joint swelling, myalgias or other Neurologic Neurologic: Reports abnormal gait and focal weakness; Denies abnormal speech, confusion, disequilibrium, dizziness, headache(s), numbness, paresthesias, seizure-like activity, seizures, syncope, tingling, tremor(s) or other Psychiatric Psychiatric: Reports anxiety and depression Endocrine Endocrinology: Denies change in body appearance, cold intolerance, excessive sweating, heat intolerance, polydipsia, polyuria or other Hematologic/Lymphatic Hematologic/Lymphatic: Denies anemia, easy bleeding, easy bruising, lymphadenopathy or other Allergic/Immunologic Allergic/Immunologic: Denies rhinitis, hives, eczemia, asthma or other Vital Signs Vital Signs Vital Signs: 03/16/24 13:32 03/16/24 15:30 03/16/24 17:00 Temperature 98.7 F Temperature Source Temporal Pulse Rate 88 78 83 Respiratory Rate 18 16 15 Blood Pressure 135/78 H 136/83 H 153/80 H Blood Pressure Mean 97 100 104 Pulse Ox 97 99 100 Oxygen Delivery Method Room Air Room Air Weight Weight: 49.7 kg Body Mass Index (BMI) 18.8 Physical Exam Const alert, oriented x3 and no apparent distress Constitutional Narrative: Thin, upper middle-aged, white female who appears older than stated age, sitting up in bed, currently appears comfortable, nontoxic, markedly anxious, son at bedside General Appearance: cooperative HEENT normocephalic, head/scalp atraumatic, hearing grossly normal bilaterally and moist oral mucous membranes HEENT Narrative: Mallampati 1, no thrush Eyes PERRL and EOMs intact bilaterally Eyes Narrative: No scleral icterus Neck no lymphadenopathy and supple Neck Narrative: Trachea midline, no thyroid enlargement Resp normal respiratory effort, no retractions, no use of accessory muscles and clear to auscultation bilaterally Resp Narrative: Diffusely diminished but clear Auscultation: Negative for rales, rhonchi or wheezes Cardio regular rate, regular rhythm, S1 normal heart sound, S2 normal heart sound, no murmurs, no rub, no gallops and no clicks GI normal to inspection, nondistended, normoactive bowel sounds, soft to palpation and non-tender GI Narrative: Abdomen is scaphoid Extremity no clubbing, cyanosis or edema Extremity Narrative: Decreased lean muscle mass Neuro oriented x3, CN's II-XII intact bilaterally and moves all extremities Neuro Narrative: Bilateral lower extremity weakness, positive Marie sign bilateral lower extremities, reflexes are 2+, no sensory changes Speech: speech normal Psych Mood & Affect: anxious Results Lab / Micro Data 03/16/24 13:54 03/16/24 13:54 Labs: Laboratory Results - last 24 hr 03/16/24 13:54: WBC 8.4, RBC 4.01 L, Hgb 12.8, Hct 36.8 L, MCV 91.8, MCH 31.9, MCHC 34.8, RDW Std Deviation 41.9, RDW Coeff of Bharath 12.4, Plt Count 286, MPV 10.1, Immature Gran % (Auto) 0.400, Neut % (Auto) 75.6 H, Lymph % (Auto) 15.9 L, [place] % (Auto) 6.9, Eos % (Auto) 0.5, Baso % (Auto) 0.7, Absolute Neuts (auto) 6.3, Absolute Lymphs (auto) 1.33, Nucleated RBC % 0, Sodium 137, Potassium 3.7, Chloride 103, Carbon Dioxide 29.0, Anion Gap 5, BUN 16, Creatinine 0.78, Estim Creat Clear Calc 54.27, Est GFR (MDRD) Af Amer 95, Est GFR (MDRD) Non-Af 78, BUN/Creatinine Ratio 20.4 H, Glucose 115 H, Calcium 8.8, Total Bilirubin 0.70, AST 22, ALT 26, Alkaline Phosphatase 61, Troponin I High Sens 7, Total Protein 6.9, Albumin 4.2, Globulin 2.7, Albumin/Globulin Ratio 1.6, Lipase 29 03/16/24 14:43: Urine Color Yellow, Urine Clarity Clear, Urine pH 6.5, Ur Specific [place] 1.010, Urine Protein 15 H, Urine Glucose (UA) Normal, Urine Ketones Negative, Urine Occult Blood 10 H, Urine Nitrite Positive H, Urine Bilirubin Negative, Urine Urobilinogen Normal, Ur Leukocyte Esterase 100 H, Urine RBC 0 SEEN, Urine WBC 0-5 SEEN, Ur Squamous Epith Cells 0 SEEN, Urine Bacteria 1+, Urine Mucus 0 SEEN Micro: Microbiology 03/16/24 14:43 Mucosa - Nose SARS-CoV-2, Influenza & RSV (PCR) - Final Imaging Radiology Impression Abdomen/Pelvis CT 03/16/24 14:29 IMPRESSION: Colonic diverticulosis. No obstruction or abscess. Electronically Signed: James Means MD at 15:50 EDT , Brain CT 03/16/24 14:29 IMPRESSION: Chronic involutional changes of the brain. Electronically Signed: James Means MD at 15:43 EDT , Assessment & Plan Assessment/Plan (1) Status post lumbar spinal fusion: (2) Inability to walk: (3) Leg weakness: (4) Abnormal urinalysis: PLAN: Plan Inability to walk/bilateral lower extremity weakness -MRI with contrast brain and entire spine -Does have recent history of lumbar fusion and previous history of cervical fusion -States her brother has MS and is markedly concerned that she has MS -PT/OT consultation -Case management/social work consultation for assistance with discharge planning -Patient is immunocompromise at baseline due to injection for psoriatic arthritis with Taltz -Marie sign was positive on exam Abnormal urinalysis -Patient's only symptom is frequency -Denies dysuria -Start Keflex -Urine culture pending History of psoriatic arthritis -Restart injection at discharge Urinary incontinence -Continue home Gemtesa Degenerative disc disease -Previous cervical fusion x 2 -Recent lumbar surgery with fusion in November 2023 -Imaging as noted above Elevated blood pressure -Patient is not on any antihypertensives -As needed hydralazine -Will monitor while hospitalized Tobacco abuse -Patient states she is down to 5 cigarettes daily -Continue home Chantix -Nicotine patch 7 mcg -Recommend cessation DVT prophylaxis -Subcu Lovenox CODE STATUS -Full code Charges/Coding Visit Charges Inpatient E&M: 59677 Init Hosp L2
[2024-03-16 18:05] VITALS: BP 171/90; PULSE 75; RESP 14; TEMP 36.6; O2SAT 99
--- NOTE | 2024-03-16 18:20 | RAD_ITS ---
EXAM: XR CERVICAL SPINE, 4 VIEWS. Including 2 lateral views, AP view and AP odontoid view. CLINICAL INDICATION: pain TECHNIQUE: See above. COMPARISON: MRI August 20, 2023 FINDINGS: VERTEBRAE: There is a similar degree of mild residual lordosis at C2-3 with straightening at C3 through the cervicothoracic junction, with multiple anterior stabilization plates and disc space fusion . No visible spondylolisthesis or significant bone destruction or disc space widening. Preserved vertebral body height. No acute fracture. No significant facet arthropathy. SPACES: Unremarkable. Disc spaces are maintained. SOFT TISSUES: Unremarkable. No prevertebral soft tissue widening. LUNG APICES: Clear. RAD/Cerv Spine 2 or 3 Views IMPRESSION: Extensive postoperative changes at C3-C7 with straightening of most of the usual lordotic curvature. Mild residual lordotic curvature at C2-3 appears similar to prior MRI sagittal. No tres subluxation, bone destruction or disc space widening. No prevertebral soft tissue swelling. Electronically Signed: Kelly Mena MD at 23:15 EDT ,
[2024-03-16 18:49] VITALS: BMI 18.6
[2024-03-16 18:50] VITALS: BP 166/86; PULSE 88; RESP 16; TEMP 37; O2SAT 97
[2024-03-16] MEDS: Cephalexin 500 MG Capsule PO (20:01)
[2024-03-16] MEDS: Varenicline 1 MG Tablet PO (21:22)
[2024-03-16] MEDS: Escitalopram Oxalate 20 MG Tablet PO (21:22)
[2024-03-16 21:27] VITALS: BP 118/73; PULSE 86; RESP 16; TEMP 36.4; O2SAT 95
[2024-03-17] VITALS (7 sets, daily range): BP systolic 131–164; BP diastolic 73–89; PULSE 58–79; RESP 16–18; TEMP 36.6–36.9; O2SAT 96–100
[2024-03-17 05:09] LABS: Absolute Lymphocyte Count 1.89 X10^3/uL (0.83-4.51); Absolute Neutrophil Count 8.2 X10^3/uL (2.0-7.7); Basophil# 0.07 X10^3/uL; Basophil% 0.6 % (0-1); Eosinophils% 0.9 % (0-5); Hematocrit 36.2 % (37-47); Hemoglobin 12.2 g/dL (12.0-15.0); Lymphocyte # 1.89 X10^3/ul (0.83-4.51); Lymphocyte % 17.1 % (19-41); Mean Corp Hgb Conc 33.7 g/dL (32-36); Mean Corpuscular Hgb 30.9 pg (27.0-32.0); Mean Corpuscular Volume 91.6 fL (81-99); Monocyte# 0.77 X10^3/uL; NRBC Flagged by Analyzer 0 % (0-5); Neutrophil # 8.19 X10^3/uL (2.7-7.7); Neutrophil % 74.1 % (47-70); Platelet Count 270 K/mm3 (150-450); RBC Distribution Width CV 12.5 % (11.6-14.6); RBC Distribution Width SD 41.8 fl (35.1-43.9); Red Blood Count 3.95 M/mm3 (4.2-5.4); White Blood Count 11.1 K/mm3 (4.4-11.0)
[2024-03-17 05:42] LABS: ALB/GLOB Ratio 1.4 RATIO (0.9-2.4); AST(SGOT) 24 U/L (15-37); Alanine Aminotransfer ALT/SGPT 23 U/L (13-56); Albumin, Serum 3.7 g/dL (3.2-5.0); Alkaline Phosphatase 59 U/L (45-117); Anion Gap 6 (5-15); BUN 14 mg/dL (7-18); BUN/Creat Ratio 21.3 RATIO (10-20); Calcium,Total 8.5 mg/dL (8.5-10.1); Chloride 106 mmol/L (98-107); Creatinine, Serum 0.66 mg/dL (0.55-1.02); EST Glomerular Filtration Rate 96 mL/min (>60); Est Glom Filt Rate - Afr Amer 116 mL/min (>60); Estimated Creatinine Clearance 53.62 ml/min; Globulin 2.6 g/dL (2.2-4.2); Glucose 94 mg/dL (74-106); Magnesium 1.9 mg/dL (1.6-2.6); Phosphorus 3.2 mg/dL (2.5-4.9); Potassium 3.6 mmol/L (3.5-5.1); Protein, Total 6.3 g/dL (6.4-8.2); Sodium Level 139 mmol/L (136-145); Thyroid Stim Hormone (TSH) 0.862 uIU/mL (0.358-3.740)
[2024-03-17 08:43] LABS: Vitamin B12 522 pg/mL (211-911)
[2024-03-17] MEDS: Cephalexin 500 MG Capsule PO ×2 (09:26→22:09)
[2024-03-17] MEDS: Varenicline 1 MG Tablet PO ×2 (09:26→22:15)
[2024-03-17] MEDS: Vibegron 75 MG TABLET PO (09:26)
[2024-03-17] MEDS: Enoxaparin 40 MG/0.4 ML Syringe SC (09:26)
--- NOTE | 2024-03-17 12:04 | CASEMGMT ---
Discharge Planning A list of?SNF providers including quality and resource use data and consistent with the patient's preferred geographic region, medical needs, and insurance network was created in [employer] Guide.? This list was provided to the SW. Izabela Salcido Discharge Planning Asst.
--- NOTE | 2024-03-17 12:57 | CON.PCM.OR_ITS ---
HPI Consult Data Date of Consult: 03/17/24 HPI Narrative HPI Narrative: DANA RAMSAY, is a 64 F who presents with inability to walk. Patient is well-known to me as she underwent L4-5 fusion in November of this year. She called me from home on Sunday saying that she has lost her ability to walk, and I recommended that she go to the emergency room. She did go to the emergency room and got admitted last night. I saw her in 312 today. She was sitting comfortably on a chair. She is on fall risk precautions. She says that she was doing great after the lumbar surgery. Her initial severe radicular pain after the surgery lasted for about a month and now she does not have any axial or radicular pain. She also saw me in clinic for her follow-up in mid January. At that time, she did not have any significant back or radicular pain. She says that her worsening balance and gradual loss of the ability to walk has been happening over 7 years. I have seen her in clinic for multiple follow-ups since earlier this year. She has been rollator dependent because of possible cervical myelopathy which is treated with surgery many years ago. She says that over the last 4 to 5 days she started feeling some tingling over the anterior aspect of the right worse than left thighs distally after which her legs would give out on her and she would fall. Over the last 2 days she had to crawl within her house. Eventually she called her son and he brought her to the emergency room. [facility] Medical History Wears glasses Post-menopausal Cancer Walker as ambulation aid Back pain Injury of head and neck Difficulty swallowing Smoker History of echocardiogram TB lung, latent Chronic bronchitis Neuropathy Vitamin D deficiency History of pneumonia Psoriatic arthritis Anxiety Hypertension Emphysema, unspecified COPD (chronic obstructive pulmonary disease) Spinal stenosis of cervical region History of uterine cancer Home Medications ?Medication ?Instructions ?Recorded ?Last Taken ?Type cholecalciferol (vitamin D3) 50 50 mcg PO DAILY SUPPLEMENT 08/03/20 03/16/24 History mcg (2,000 unit) capsule kmzcrcxeidmu-Iu-majk-minerals 27 1 tab PO DAILY SUPPLEMENT 01/10/21 03/16/24 History mg-0.4 mg tablet (One Daily Women's) ixekizumab 80 mg/mL subcutaneous 80 mg subcut Q4W PSORIATIC 08/07/23 11/21/23 History auto-injector (Taltz Autoinjector) ARTHRITIS calcium 650 mg-vitamin D3 12.5 1 tab PO DAILY SUPPLEMENT 10/19/23 03/16/24 History mcg-vitamin K 40 mcg chewable tablet (Viactiv) escitalopram oxalate 20 mg tablet 20 mg PO QHS ANTIDEPRESSANT #30 10/31/23 03/15/24 Rx tabs varenicline 1 mg tablet (Chantix) 1 mg PO BID SMOKING CESSATION 12/04/23 03/16/24 History vibegron 75 mg tablet (Gemtesa) 75 mg PO DAILY 03/16/24 03/16/24 History Allergy/AdvReac Type Severity Reaction Status Date / Time minocycline (Minocycline) Allergy Severe Anaphylaxis Verified 03/16/24 13:31 cyclobenzaprine (From Allergy Unknown Swelling Verified 03/16/24 13:31 Flexeril) Family History Father COPD (chronic obstructive pulmonary disease) Diabetes Heart disease Mother Heart disease Surgical History H/O eye surgery History of partial hysterectomy History of shoulder surgery History of tonsillectomy and adenoidectomy H/O inguinal hernia repair History of breast augmentation S/P cervical spinal fusion H/O cervical discectomy Social History household members: none housing: house current occupational status: retired pets and animals: Yes pets and animals: dog(s) Smoking Status: Current every day smoker tobacco type: cigarettes Tobacco: How many years used: 45 Electronic Cigarette Use: not used second hand exposure: Yes alcohol intake: current alcohol intake frequency: holidays/special occasions only substance use type: does not use what type of physical activity do you participate in: none seatbelt use: always do you feel safe at home: Yes Vital Signs Vital Signs Vital Signs: 03/16/24 13:32 03/16/24 15:30 03/16/24 17:00 Temperature 98.7 F Temperature Source Temporal Pulse Rate 88 78 83 Pulse Strength Respiratory Rate 18 16 15 Respiratory Effort Respiratory Depth Respiratory Pattern Blood Pressure 135/78 H 136/83 H 153/80 H Blood Pressure Mean 97 100 104 Blood Pressure Source Blood Pressure Position Blood Pressure Location Pulse Ox 97 99 100 Oxygen Delivery Method Room Air Room Air 03/16/24 18:05 03/16/24 18:50 03/16/24 21:27 Temperature 98 F 98.6 F 97.5 F L Temperature Source Temporal Oral Pulse Rate 75 88 86 Pulse Strength Respiratory Rate 14 16 16 Respiratory Effort Respiratory Depth Respiratory Pattern Blood Pressure 171/90 H 166/86 H 118/73 Blood Pressure Mean 117 112 88 Blood Pressure Source Monitor Monitor Blood Pressure Position Semi-Fowlers Blood Pressure Location Left Arm Pulse Ox 99 97 95 Oxygen Delivery Method Room Air Room Air 03/16/24 21:29 03/16/24 21:36 03/16/24 23:22 Temperature Temperature Source Pulse Rate Pulse Strength Normal (2+) Respiratory Rate Respiratory Effort Normal Non-Labored Respiratory Depth Normal Respiratory Pattern Normal Blood Pressure Blood Pressure Mean Blood Pressure Source Blood Pressure Position Blood Pressure Location Pulse Ox Oxygen Delivery Method Room Air 03/17/24 00:44 03/17/24 06:07 03/17/24 08:11 Temperature 98 F 98.1 F Temperature Source Oral Oral Pulse Rate 70 71 Pulse Strength Normal (2+) Respiratory Rate 16 16 Respiratory Effort Respiratory Depth Respiratory Pattern Blood Pressure 149/85 H 142/89 H Blood Pressure Mean 106 106 Blood Pressure Source Monitor Monitor Blood Pressure Position Semi-Fowlers Semi-Fowlers Blood Pressure Location Left Arm Left Arm Pulse Ox 97 96 Oxygen Delivery Method Room Air Room Air 03/17/24 08:12 03/17/24 08:15 Temperature 98.4 F Temperature Source Oral Pulse Rate 79 Pulse Strength Respiratory Rate 18 Respiratory Effort Normal Non-Labored Respiratory Depth Normal Respiratory Pattern Normal Blood Pressure 131/83 H Blood Pressure Mean 99 Blood Pressure Source Monitor Blood Pressure Position Semi-Fowlers Blood Pressure Location Left Arm Pulse Ox 98 Oxygen Delivery Method Room Air Room Air Weight Weight: 108 lb 4 oz Body Mass Index (BMI) 18.6 Physical Exam Narrative Examination the back and belly show incisions well-healed. There is no tenderness. Neurologic evaluation of upper and lower extremities shows 5 x 5 power in all muscle groups in upper extremities, 4+ by 5 power in all muscles in lower extremities bilaterally. Inessa's is positive at baseline on the left. Lab / Micro Data 03/17/24 03:53 03/17/24 03:53 Labs: Laboratory Results - last 24 hr 03/16/24 13:54: WBC 8.4, RBC 4.01 L, Hgb 12.8, Hct 36.8 L, MCV 91.8, MCH 31.9, MCHC 34.8, RDW Std Deviation 41.9, RDW Coeff of Bharath 12.4, Plt Count 286, MPV 10.1, Immature Gran % (Auto) 0.400, Neut % (Auto) 75.6 H, Lymph % (Auto) 15.9 L, Angelina % (Auto) 6.9, Eos % (Auto) 0.5, Baso % (Auto) 0.7, Absolute Neuts (auto) 6.3, Absolute Lymphs (auto) 1.33, Nucleated RBC % 0, Sodium 137, Potassium 3.7, Chloride 103, Carbon Dioxide 29.0, Anion Gap 5, BUN 16, Creatinine 0.78, Estim Creat Clear Calc 54.27, Est GFR (MDRD) Af Amer 95, Est GFR (MDRD) Non-Af 78, B UN/Creatinine Ratio 20.4 H, Glucose 115 H, Calcium 8.8, Total Bilirubin 0.70, AST 22, ALT 26, Alkaline Phosphatase 61, Troponin I High Sens 7, Total Protein 6.9, Albumin 4.2, Globulin 2.7, Albumin/Globulin Ratio 1.6, Lipase 29 03/16/24 14:43: Urine Color Yellow, Urine Clarity Clear, Urine pH 6.5, Ur Specific [place] 1.010, Urine Protein 15 H, Urine Glucose (UA) Normal, Urine Ketones Negative, Urine Occult Blood 10 H, Urine Nitrite Positive H, Urine Bilirubin Negative, Urine Urobilinogen Normal, Ur Leukocyte Esterase 100 H, Urine RBC 0 SEEN, Urine WBC 0-5 SEEN, Ur Squamous Epith Cells 0 SEEN, Urine Bacteria 1+, Urine Mucus 0 SEEN 03/16/24 21:03: Vitamin B12 522 03/17/24 03:53: WBC 11.1 H, RBC 3.95 L, Hgb 12.2, Hct 36.2 L, MCV 91.6, MCH 30.9, MCHC 33.7, RDW Std Deviation 41.8, RDW Coeff of Bharaht 12.5, Plt Count 270, MPV 10.0, Immature Gran % (Auto) 0.300, Neut % (Auto) 74.1 H, Lymph % (Auto) 17.1 L, Angelina % (Auto) 7.0, Eos % (Auto) 0.9, Baso % (Auto) 0.6, Absolute Neuts (auto) 8.2 H, Absolute Lymphs (auto) 1.89, Nucleated RBC % 0, Sodium 139, Potassium 3.6, Chloride 106, Carbon Dioxide 27.0, Anion Gap 6, BUN 14, Creatinine 0.66, Estim Creat Clear Calc 53.62, Est GFR (MDRD) Af Amer 116, Est GFR (MDRD) Non-Af 96, BUN/Creatinine Ratio 21.3 H, Glucose 94, Calcium 8.5, Phosphorus 3.2, Magnesium 1.9, Total Bilirubin 0.40, AST 24, ALT 23, Alkaline Phosphatase 59, Total Protein 6.3 L, Albumin 3.7, Globulin 2.6, Albumin/Globulin Ratio 1.4, TSH 0.862 Micro: Microbiology 03/16/24 14:43 Mucosa - Nose SARS-CoV-2, Influenza & RSV (PCR) - Final Imaging Radiology Impression Abdomen/Pelvis CT 03/16/24 14:29 IMPRESSION: Colonic diverticulosis. No obstruction or abscess. Electronically Signed: James Means MD at 15:50 EDT , Brain CT 03/16/24 14:29 IMPRESSION: Chronic involutional changes of the brain. Electronically Signed: James Means MD at 15:43 EDT , Cervical Spine X-Ray 03/16/24 18:20 IMPRESSION: Extensive postoperative changes at C3-C7 with straightening of most of the usual lordotic curvature. Mild residual lordotic curvature at C2-3 appears similar to prior MRI sagittal. No tres subluxation, bone destruction or disc space widening. No prevertebral soft tissue swelling. Electronically Signed: Kelly Mena MD at 23:15 EDT , Assessment & Plan Assessment/Plan (1) Status post lumbar spinal fusion: PLAN: Plan I reviewed her CT abdomen and x-ray cervical spine from last night. CT abdomen shows well-healed L4-5 fusion with no hardware complications and no hardware malposition. X-ray cervical spine shows baseline multilevel cervical fusion. No hardware complications. I explained to her that the available imaging shows good healing at her lumbar fusion site. Her gradual worsening balance and inability to walk is difficult to explain. She is scheduled to undergo a telemedicine neurology consultation later today. I would agree with obtaining at least the lumbar MRI with possibly screening pictures of the entire spine. I will continue to follow once MRIs are complete. Answered all questions. I offered to call the patient's son, but the patient said that I need not disturb him. Will review MRIs and neurology consultation notes once done. Patient was in agreement.
--- NOTE | 2024-03-17 14:50 | PCM.PROGNOTE ---
Subjective Subjective Patient seen and examined. Patient was admitted because of difficulty with mobility. Patient is very anxious and states that whilst lying in bed she is able to move her legs but when she tries to walk, her brain does not connect to her legs and so she is not able to walk. She is concerned she may have multiple sclerosis because her brother has the same. She is very concerned because she says she has not gotten a diagnosis for her inability to work. This is a chronic problem which has been going on for several years but patient states that she thinks it is worsened. She follows neurology for this exact same problem. Review of systems otherwise negative. Objective Data Objective Data Vital Signs: Vital Signs Temp Pulse Resp BP Pulse Ox O2 Del Method 98.4 F 79 18 131/83 H 98 Room Air 03/17/24 08:15 03/17/24 08:15 03/17/24 08:15 03/17/24 08:15 03/17/24 08:15 03/17/24 08:15 Oxygen Delivery Method Room Air Weight: 108 lb 4 oz Body Mass Index (BMI) 18.6 Intake & Output: Intake and Output for Last 24 Hours 03/15/24 03/16/24 03/17/24 23:59 23:59 23:59 Intake Total 1000 / 1300 500 / 500 Output Total 300 / 300 400 / 400 Balance 700 / 1000 100 / 100 Lab / Micro Data 03/17/24 03:53 03/17/24 03:53 Labs: Laboratory Results - last 24 hr 03/16/24 13:54: Sodium 137, Potassium 3.7, Chloride 103, Carbon Dioxide 29.0, Anion Gap 5, BUN 16, Creatinine 0.78, Estim Creat Clear Calc 54.27, Est GFR (MDRD) Af Amer 95, Est GFR (MDRD) Non-Af 78, BUN/Creatinine Ratio 20.4 H, Glucose 115 H, Calcium 8.8, Total Bilirubin 0.70, AST 22, ALT 26, Alkaline Phosphatase 61, Troponin I High Sens 7, Total Protein 6.9, Albumin 4.2, Globulin 2.7, Albumin/Globulin Ratio 1.6, Lipase 29 03/16/24 14:43: Urine Color Yellow, Urine Clarity Clear, Urine pH 6.5, Ur Specific [place] 1.010, Urine Protein 15 H, Urine Glucose (UA) Normal, Urine Ketones Negative, Urine Occult Blood 10 H, Urine Nitrite Positive H, Urine Bilirubin Negative, Urine Urobilinogen Normal, Ur Leukocyte Esterase 100 H, Urine RBC 0 SEEN, Urine WBC 0-5 SEEN, Ur Squamous Epith Cells 0 SEEN, Urine Bacteria 1+, Urine Mucus 0 SEEN 03/16/24 21:03: Vitamin B12 522 03/17/24 03:53: WBC 11.1 H, RBC 3.95 L, Hgb 12.2, Hct 36.2 L, MCV 91.6, MCH 30.9, MCHC 33.7, RDW Std Deviation 41.8, RDW Coeff of Bharath 12.5, Plt Count 270, MPV 10.0, Immature Gran % (Auto) 0.300, Neut % (Auto) 74.1 H, Lymph % (Auto) 17.1 L, [place]rie % (Auto) 7.0, Eos % (Auto) 0.9, Baso % (Auto) 0.6, Absolute Neuts (auto) 8.2 H, Absolute Lymphs (auto) 1.89, Nucleated RBC % 0, Sodium 139, Potassium 3.6, Chloride 106, Carbon Dioxide 27.0, Anion Gap 6, BUN 14, Creatinine 0.66, Estim Creat Clear Calc 53.62, Est GFR (MDRD) Af Amer 116, Est GFR (MDRD) Non-Af 96, BUN/Creatinine Ratio 21.3 H, Glucose 94, Calcium 8.5, Phosphorus 3.2, Magnesium 1.9, Total Bilirubin 0.40, AST 24, ALT 23, Alkaline Phosphatase 59, Total Protein 6.3 L, Albumin 3.7, Globulin 2.6, Albumin/Globulin Ratio 1.4, TSH 0.862 Micro: Microbiology 03/16/24 14:43 Urine, Clean Catch Urine Culture - Preliminary GNR lactose roofing subcontractor 03/16/24 14:43 Mucosa - Nose SARS-CoV-2, Influenza & RSV (PCR) - Final Radiography Diagnostic Testing: Radiology Impression Abdomen/Pelvis CT 03/16/24 14:29 IMPRESSION: Colonic diverticulosis. No obstruction or abscess. Electronically Signed: James Means MD at 15:50 EDT , Brain CT 03/16/24 14:29 IMPRESSION: Chronic involutional changes of the brain. Electronically Signed: James Means MD at 15:43 EDT , Cervical Spine X-Ray 03/16/24 18:20 IMPRESSION: Extensive postoperative changes at C3-C7 with straightening of most of the usual lordotic curvature. Mild residual lordotic curvature at C2-3 appears similar to prior MRI sagittal. No tres subluxation, bone destruction or disc space widening. No prevertebral soft tissue swelling. Electronically Signed: Kelly Mena MD at 23:15 EDT , Physical Exam Const alert and oriented x3 Constitutional Narrative: very anxious General Appearance: cooperative HEENT normocephalic, head/scalp atraumatic, moist oral mucous membranes and oropharynx normal Eyes PERRL and EOMs intact bilaterally Neck no lymphadenopathy and supple Lymph Lymphatic: no lymphadenopathy noted and no lymphedema noted Resp normal respiratory effort, normal air movement and clear to auscultation bilaterally Cardio regular rate, regular rhythm, S1 normal heart sound, S2 normal heart sound and no murmurs GI normal to inspection, nondistended, normoactive bowel sounds, soft to palpation, non-tender and non-distended Extremity normal capillary refill, no clubbing, cyanosis or edema and no calf tenderness General Extremity: no tenderness to palpation of joints or extremities Skin General Skin Exam: no breakdown Neuro CN's II-XII intact bilaterally, no focal motor deficits, no sensory deficits noted and deep tendon reflexes 2+ bilaterally Neuro Narrative: power in lower extremities is 5/5, reflexes in lower extremities normal. Normal sensation Motor Exam: general weakness Psych thought process normal Attitude: agitated Activity / Motor Behavior: restless Mood & Affect: anxious Assessment & Plan Assessment/Plan (1) Weakness: PLAN: Plan #Bilateral lower extremity weakness says she had bilateral lower extremity weakness and unable to ambulate. she has had lower extremity weakness for several years and follows up with neurology she has a history of cervical spinal stenosis and lumbar spinal stenosis and has had surgery for both cervical and lumbar stenosis she has had MRI of the brain in July 2023 which showed no evidence of MS. follows with neurology on outpatient basis and no evidence of MS per neurology. Her lower extremity weakness was thought to be multifactorial PT/OT on board will consult neurology as patient is very concerned she has not had any definite answers about her weakness in her lower extremities. fall precautions #Abnormal urinalysis complained of frequency on admission on Keflex. Patient says she also has urinary incontinence. urine culture pending #History of psoriatic arthritis: injections resumed. #Urinary incontinence: on gemtesa #Degenerative disc disease s/p cervical fusion of C5-6 and C6-7 in 2001. Had lumbar surgery :4-5 with fusion in November 2023. Pt.OT on board. Fall precautions #Nicotine dependence: on chantix. Nicotine patch daily. DVT prophylaxis: lovenox Charges/Coding Visit Charges Inpatient E&M: 46454 Subs Hosp L2
--- NOTE | 2024-03-17 16:00 | CASEMGMT ---
Social Work- A list of SNF providers including quality and resource use data and consistent with the patient?s preferred geographic region, medical needs, and insurance network were provided from the [facility] Guide. Pt will review list and let SW know in the AM her preference. SW provided mental health provider list, as well as several printed materials centered around anxiety coping skills, as pt reports having high anxiety d/t the dr saying I'll never walk again and reports that If I can never walk again, then I can't live in my house and need another house. Pt was impulsive in speech, often interrupting SW. Pt was dismissive of supports; SW offered to follow up tomorrow. SW will remain available to follow. INOCENCIA García
--- NOTE | 2024-03-17 18:00 | MRI_ITS ---
INDICATION: unable to walk, hx of sx EXAMINATION: MRI - MR Spine Cervical W/O Contrast TECHNIQUE: Multiplanar and multisequence MR images of the cervical spine were performed. IV Contrast Dosage and Agent: None. COMPARISON: 08/20/2023 FINDINGS: VERTEBRAE: No acute fracture or pathologic marrow replacement. Stable changes from ACDF C3-C7. VERTEBRAL ALIGNMENT: Normal, including the craniocervical junction and cervicothoracic junction. No spondylolisthesis. CERVICAL SPINAL CORD: Unremarkable in signal and morphology. C2/C3: Normal disc height and morphology. Normal spinal canal and neuroforamina. C3/C4: Normal disc height and morphology. Normal spinal canal and neuroforamina. C4/C5: Normal disc height and morphology. Normal spinal canal and neuroforamina. C5/C6: Normal disc height and morphology. Normal spinal canal and neuroforamina. C6/C7: Stable broad-based disc-osteophyte formation. Stable mild central and bilateral foraminal stenoses. C7/T1: Normal disc height and morphology. Normal spinal canal and neuroforamina. NECK SOFT TISSUES: No prevertebral soft tissue swelling. There is no cervical adenopathy. MRI/Spine Cervical (Routine) IMPRESSION: Stable examination. Stable mild central and foraminal stenoses at C6-7 due to spondylitic changes. Electronically Signed: Derik Membreno MD at 19:22 EDT ,
--- NOTE | 2024-03-17 18:00 | MRI_ITS ---
INDICATION: inability to walk, hx of sx patient unable to do contrast EXAMINATION: MRI - MR Spine Lumbar W/O Contrast TECHNIQUE: Multiplanar and multisequence MR images of the lumbar spine. IV Contrast Dosage and Agent: None. COMPARISON: Lumbar MRI 06/11/2023 FINDINGS: Postoperative study limited by lack of IV contrast. VERTEBRAE: No acute fracture or pathologic marrow replacement. Interval posterior lumbar fusion with hardware at L4-5. VERTEBRAL ALIGNMENT: No spondylolisthesis. There is preservation of the normal lumbar lordosis. CORD: Normal position and signal intensity of the conus medullaris. T12/L1: Stable small central disc protrusion with small extruded fragment. No significant central stenosis. L1/L2: Stable shallow posterior disc bulge with mild central stenosis. No significant foraminal stenosis. L2/L3: Normal disc height and morphology. Normal spinal canal, lateral recesses and neuroforamina. L3/L4: Stable mild circumferential annular bulge and facet joint hypertrophy. Stable mild central and bilateral foraminal encroachment. L4/L5: Stable marked facet joint hypertrophy with circumferential annular bulge. Decreased central stenosis with mild bilateral foraminal encroachment. L5/S1: Normal disc height and morphology. Normal spinal canal, lateral recesses and neuroforamina. SOFT TISSUES: Unremarkable. MRI/Spine Lumbar (Routine) IMPRESSION: Surgical changes from posterior lumbar fusion with hardware at L4-5. Decreased central stenosis at L4-5 with persistent bilateral foraminal encroachment. Stable small central disc protrusion at T12-L1. Electronically Signed: Derik Membreno MD at 17:14 EDT ,
[2024-03-17] MEDS: Escitalopram Oxalate 20 MG Tablet PO (22:09)
[2024-03-17] MEDS: hydrALAZINE 20 MG/ML Vial 10 MG IV (22:13)
[2024-03-17] MEDS: Ondansetron 4 MG/2 ML Vial IV (23:44)
[2024-03-18 05:15] VITALS: BP 123/60; PULSE 71; RESP 16; TEMP 36.9; O2SAT 96
[2024-03-18 06:58] LABS: Absolute Neutrophil Count 7.1 X10^3/uL (2.0-7.7); Basophil# 0.04 X10^3/uL; Basophil% 0.4 % (0-1); Eosinophil# 0.04 X10^3/uL; Eosinophils% 0.4 % (0-5); Hematocrit 37.9 % (37-47); Hemoglobin 12.7 g/dL (12.0-15.0); Lymphocyte % 19.9 % (19-41); Mean Corp Hgb Conc 33.5 g/dL (32-36); Mean Corpuscular Hgb 30.5 pg (27.0-32.0); Mean Corpuscular Volume 90.9 fL (81-99); Mean Platelet Vol. 9.6 fl (6.2-12.0); Monocyte# 0.88 X10^3/uL; Monocyte% 8.7 % (0-10); NRBC Flagged by Analyzer 0 % (0-5); Neutrophil # 7.08 X10^3/uL (2.7-7.7); Neutrophil % 70.3 % (47-70); Platelet Count 263 K/mm3 (150-450); RBC Distribution Width CV 12.5 % (11.6-14.6); RBC Distribution Width SD 41.6 fl (35.1-43.9); Red Blood Count 4.17 M/mm3 (4.2-5.4); White Blood Count 10.1 K/mm3 (4.4-11.0)
[2024-03-18 07:41] LABS: Anion Gap 5 (5-15); BUN 10 mg/dL (7-18); BUN/Creat Ratio 17.6 RATIO (10-20); Calcium,Total 9.3 mg/dL (8.5-10.1); Chloride 104 mmol/L (98-107); Creatinine, Serum 0.57 mg/dL (0.55-1.02); EST Glomerular Filtration Rate 114 mL/min (>60); Est Glom Filt Rate - Afr Amer 137 mL/min (>60); Estimated Creatinine Clearance 53.62 ml/min; Glucose 127 mg/dL (74-106); Potassium 3.9 mmol/L (3.5-5.1); Sodium Level 137 mmol/L (136-145)
[2024-03-18 08:16] VITALS: BP 121/78; PULSE 87; RESP 16; TEMP 37; O2SAT 97
--- NOTE | 2024-03-18 09:30 | CASEMGMT ---
Addendum entered by Jeanne Arevalo 03/18/24 10:13: Social Work- SW asked pt if she'd like SW to call son; pt declined. INOCENCIA García Addendum entered by Jeanne Arevalo 03/18/24 10:10: Social Work- MANOJ also discussed a medical alert for pt; pt declined stating that I don't fall and I never get sick; this just started Sunday........and I will have people there helping me. INOCENCIA García Original Note: Social Work- SW met with pt to follow up on materials provided yesterday. Pt reports that her son told her last night at 8:30 that SW can order pt to a group home and can keep me there forever. Pt states that she has had severe anxiety manifesting as crying and dry heaving since that time d/t this statement by her son. SW provided education on pt preference, safe discharges, and pt rights. SW referred back to meeting yesterday where SW relayed the recommendations by therapy and discussed skilled need not intermediate care. Pt states that she plans to return home for 1 month until she can move into her independent living apartment by an assisted living facility in [place]. Pt reports that her friends and family have offered to provide daily care until that time. Pt reports that she does not want anyone in her home for PT/OT/HHC. Pt reports that she has 1 step into the home and her son will assist her with the step. Pt states neighbors have offered to move belongings to [place]. Pt real estate account executive is stopping by the hospital today with papers. Pt states that her son also told her that if she's in the hospital three days, then she qualifies for help getting a wheelchair. SW provided education on medicare vs managed medicare (pt has [facility]), as well as the role of RNCM in assisting in obtaining covered DME. Pt reports that she has already set up for a friend to go to [facility] today to purchase a wheelchair, as I have plenty of money to spend and it's my life. Pt reports that she plans to have multiple wheelchairs, so she would still speak with RNCM, as she would like [facility] to help her get a big, nice one. Pt refused mental health referral and returned printed materials, stating that I don't need any of that. SW advised RNCM and phsyician of pt plans to d/c home. SW will continue to follow. INOCENCIA García
--- NOTE | 2024-03-18 09:48 | CASEMGMT ---
Met with patient to complete TRIMBLE form. TRIMBLE form explained to patient who voiced understanding and signed form. Original form placed in pt?s chart and copy provided to patient. Izabela Salcido, Discharge Planning Asst
[2024-03-18] MEDS: Varenicline 1 MG Tablet PO ×2 (10:12→21:36)
[2024-03-18] MEDS: Cephalexin 500 MG Capsule PO ×2 (10:12→21:36)
[2024-03-18] MEDS: Enoxaparin 40 MG/0.4 ML Syringe SC (10:12)
[2024-03-18] MEDS: Vibegron 75 MG TABLET PO (10:12)
--- NOTE | 2024-03-18 10:33 | PN_ITS ---
Subjective Subjective Patient seen and examined. She said she feels much better today. She feels the weakness in her lower extremities has improved a bit today. She says she is due to have MRI today, but cannot tolerate the 1.5 hours she is due to spend in the MRI machine. She has remained hemodynamically stable. She is awaiting teleneurology evaluation. Objective Data Objective Data Vital Signs: Vital Signs Temp Pulse Resp BP Pulse Ox O2 Del Method 98.6 F 87 16 121/78 H 97 Room Air 03/18/24 08:16 03/18/24 08:16 03/18/24 08:16 03/18/24 08:16 03/18/24 08:16 03/18/24 08:16 Oxygen Delivery Method Room Air Weight: 108 lb 4 oz Body Mass Index (BMI) 18.6 Intake & Output: Intake and Output for Last 24 Hours 03/16/24 03/17/24 03/18/24 23:59 23:59 23:59 Intake Total 1000 / 1300 500 / 700 200 / 200 Output Total 300 / 300 400 / 400 Balance 700 / 1000 100 / 300 200 / 200 Lab / Micro Data 03/18/24 06:25 03/18/24 06:25 Labs: Laboratory Results - last 24 hr 03/18/24 06:25: WBC 10.1, RBC 4.17 L, Hgb 12.7, Hct 37.9, MCV 90.9, MCH 30.5, MCHC 33.5, RDW Std Deviation 41.6, RDW Coeff of Bharath 12.5, Plt Count 263, MPV 9.6, Immature Gran % (Auto) 0.300, Neut % (Auto) 70.3 H, Lymph % (Auto) 19.9, Piatt % (Auto) 8.7, Eos % (Auto) 0.4, Baso % (Auto) 0.4, Absolute Neuts (auto) 7.1, Absolute Lymphs (auto) 2.00, Nucleated RBC % 0, Sodium 137, Potassium 3.9, Chloride 104, Carbon Dioxide 28.0, Anion Gap 5, BUN 10, Creatinine 0.57, Estim Creat Clear Calc 53.62, Est GFR (MDRD) Af Amer 137, Est GFR (MDRD) Non-Af 114, BUN/Creatinine Ratio 17.6, Glucose 127 H, Calcium 9.3 Micro: Microbiology 03/16/24 14:43 Urine, Clean Catch Urine Culture - Final Klebsiella pneumoniae sp pneum 03/16/24 14:43 Mucosa - Nose SARS-CoV-2, Influenza & RSV (PCR) - Final Physical Exam Const alert, oriented x3 and no apparent distress Constitutional Narrative: anxious General Appearance: cooperative HEENT normocephalic, head/scalp atraumatic, hearing grossly normal bilaterally, moist oral mucous membranes and oropharynx normal Eyes PERRL and EOMs intact bilaterally Eyes Narrative: No scleral icterus Neck no lymphadenopathy and supple Lymph Lymphatic: no lymphadenopathy noted and no lymphedema noted Resp normal respiratory effort, normal air movement, no retractions, no use of accessory muscles and clear to auscultation bilaterally Auscultation: Negative for rales, rhonchi or wheezes Cardio regular rate, regular rhythm, S1 normal heart sound, S2 normal heart sound, no murmurs, no rub, no gallops and no clicks GI normal to inspection, nondistended, normoactive bowel sounds, soft to palpation, non-tender and non-distended Extremity normal capillary refill, no clubbing, cyanosis or edema and no calf tenderness Extremity Narrative: Decreased lean muscle mass General Extremity: no tenderness to palpation of joints or extremities Skin General Skin Exam: no breakdown Neuro oriented x3, CN's II-XII intact bilaterally, moves all extremities, no focal motor deficits, no sensory deficits noted and deep tendon reflexes 2+ bilaterally Neuro Narrative: power in lower extremities is 5/5, reflexes in lower extremities normal. Normal sensation Speech: speech normal Motor Exam: general weakness Psych thought process normal Mood & Affect: anxious Assessment & Plan Assessment/Plan (1) Weakness: PLAN: Plan #Bilateral lower extremity weakness * says she had bilateral lower extremity weakness and unable to ambulate. * she has had lower extremity weakness for several years and follows up with neurology * she has a history of cervical spinal stenosis and lumbar spinal stenosis and has had surgery for both cervical and lumbar stenosis * she has had MRI of the brain in July 2023 which showed no evidence of MS. * follows with neurology on outpatient basis and no evidence of MS per neurology. Her lower extremity weakness was thought to be multifactorial * PT/OT on board * neurology consulted; awaiting rec's * she feels much better today * cervical spine and lumbar spine MRI are pending. * orthopedic surgery reviewed patient and is awaiting the lumbar MRI. * fall precautions * #UTI * complained of frequency on admission * on Keflex. Patient says she also has urinary incontinence. * urine cultures growing Klebsiella sensitive to ceftriaxone. Continue on Keflex * #History of psoriatic arthritis: stable. #Urinary incontinence: on gemtesa #Degenerative disc disease * s/p cervical fusion of C5-6 and C6-7 in 2001. Had lumbar surgery :4-5 with fusion in November 2023. * Pt.OT on board. Fall precautions * #Nicotine dependence: on chantix. Nicotine patch daily. DVT prophylaxis: lovenox Charges/Coding Visit Charges Inpatient E&M: 07423 Subs Hosp L2
--- NOTE | 2024-03-18 10:55 | NEURO.CONS ---
Assessment and Plan: Neuro Assessment/Plan DANA RAMSAY is a 64 F with a past medical history of cervical and lumbar radiculopathy s/p surgery (Recent Lumbar surgery November 2023), being evaluated by Tele neurology for falls and difficulty with ambulation. She has been dealing with issue for at least 7 years and has neurologist who is taking care of her gait difficulties and she had underwent PT, pain injection after surgery which resultant decrease in pain however no improvement in ambulation. Her neurological exam is reassuring with no focal findings. Recommend Repeat MRI brain ,C/L spine. if nothing acute, continue to follow up neurologist in 6-8 weeks. Diagnosis: difficulty with walking. Plan: MRI brain /C/L spine without contrast Transfer to [facility] for the following reasons: none I personally attended this patient and spent a total time of 55 minutes evaluating this patient including clinical assessment, review of chart, medical history imaging, and determining appropriate treatment and workup. HPI Consult Data Date of Consult: 03/18/24 HPI Narrative HPI Narrative: 64 F with a past medical history of cervical and lumbar radiculopathy s/p surgery (Recent Lumbar surgery November 2023), being evaluated by Tele neurology for falls and difficulty with ambulation. She has been dealing with issue for at least 7 years and has neurologist who is taking care of her gait difficulties and she had underwent PT, pain injection after surgery which resultant decrease in pain however no improvement in ambulation. Her neurological exam is reassuring with no focal findings. She has recent visit with her neurologist on 02/28/2024. [facility] Medical History Wears glasses Post-menopausal Cancer Walker as ambulation aid Back pain Injury of head and neck Difficulty swallowing Smoker History of echocardiogram TB lung, latent Chronic bronchitis Neuropathy Vitamin D deficiency History of pneumonia Psoriatic arthritis Anxiety Hypertension Emphysema, unspecified COPD (chronic obstructive pulmonary disease) Spinal stenosis of cervical region History of uterine cancer Home Medications ?Medication ?Instructions ?Recorded ?Last Taken ?Type cholecalciferol (vitamin D3) 50 50 mcg PO DAILY SUPPLEMENT 08/03/20 03/16/24 History mcg (2,000 unit) capsule dxnppykzvula-Lj-rork-minerals 27 1 tab PO DAILY SUPPLEMENT 01/10/21 03/16/24 History mg-0.4 mg tablet (One Daily Women's) ixekizumab 80 mg/mL subcutaneous 80 mg subcut Q4W PSORIATIC 08/07/23 11/21/23 History auto-injector (Taltz Autoinjector) ARTHRITIS calcium 650 mg-vitamin D3 12.5 1 tab PO DAILY SUPPLEMENT 10/19/23 03/16/24 History mcg-vitamin K 40 mcg chewable tablet (Viactiv) escitalopram oxalate 20 mg tablet 20 mg PO QHS ANTIDEPRESSANT #30 10/31/23 03/15/24 Rx tabs varenicline 1 mg tablet (Chantix) 1 mg PO BID SMOKING CESSATION 12/04/23 03/16/24 History vibegron 75 mg tablet (Gemtesa) 75 mg PO DAILY 03/16/24 03/16/24 History Allergy/AdvReac Type Severity Reaction Status Date / Time minocycline (Minocycline) Allergy Severe Anaphylaxis Verified 03/16/24 13:31 cyclobenzaprine (From Allergy Unknown Swelling Verified 03/16/24 13:31 Flexeril) Family History Father COPD (chronic obstructive pulmonary disease) Diabetes Heart disease Mother Heart disease Surgical History H/O eye surgery History of partial hysterectomy History of shoulder surgery History of tonsillectomy and adenoidectomy H/O inguinal hernia repair History of breast augmentation S/P cervical spinal fusion H/O cervical discectomy Social History household members: none housing: house current occupational status: retired pets and animals: Yes pets and animals: dog(s) Smoking Status: Current every day smoker tobacco type: cigarettes Tobacco: How many years used: 45 Electronic Cigarette Use: not used second hand exposure: Yes alcohol intake: current alcohol intake frequency: holidays/special occasions only substance use type: does not use what type of physical activity do you participate in: none seatbelt use: always do you feel safe at home: Yes Vital Signs Vital Signs Vital Signs: 03/17/24 15:15 03/17/24 22:00 03/17/24 22:07 Temperature 98.5 F 98.4 F Temperature Source Oral Oral Pulse Rate 58 L 70 Pulse Strength Normal (2+) Respiratory Rate 18 16 Respiratory Effort Respiratory Depth Respiratory Pattern Blood Pressure 145/73 H 164/89 H Blood Pressure Mean 97 114 Blood Pressure Source Monitor Monitor Blood Pressure Position Semi-Fowlers Semi-Fowlers Blood Pressure Location Left Arm Left Arm Pulse Ox 99 99 Oxygen Delivery Method Room Air Room Air 03/17/24 22:13 03/17/24 22:18 03/17/24 23:51 Temperature 98.4 F Temperature Source Oral Pulse Rate 70 78 Pulse Strength Respiratory Rate 16 Respiratory Effort Normal Non-Labored Respiratory Depth Normal Respiratory Pattern Normal Blood Pressure 154/79 H Blood Pressure Mean 104 Blood Pressure Source Blood Pressure Position Blood Pressure Location Pulse Ox 100 Oxygen Delivery Method Room Air 03/18/24 05:15 03/18/24 08:16 03/18/24 10:40 Temperature 98.4 F 98.6 F Temperature Source Oral Oral Pulse Rate 71 87 Pulse Strength Respiratory Rate 16 16 Respiratory Effort Respiratory Depth Respiratory Pattern Blood Pressure 123/60 H 121/78 H Blood Pressure Mean 81 92 Blood Pressure Source Monitor Monitor Blood Pressure Position Semi-Fowlers Semi-Fowlers Blood Pressure Location Right Arm Left Arm Pulse Ox 96 97 Oxygen Delivery Method Room Air Room Air Room Air Weight Weight: 49.101 kg Body Mass Index (BMI) 18.6 Physical Exam Neuro Neuro Narrative: -? General: Laying comfortably in bed; in no acute distress. -? HENT: Normal oropharynx and mucosa. Normal external appearance of ears and nose. Exophthalmos. -? Neck: Supple, no pain or tenderness -? CV:? No peripheral edema. -? Pulmonary:? Normal respiratory effort. -? Ext: No cyanosis, edema, or deformity -? Skin: No rash. Normal palpation of skin.? -? Musculoskeletal: full range of motion; no joint tenderness. Normal digits and nails by inspection. No clubbing. -? NEURO: -? Mental Status: The patient was alert and oriented to time, place, and person. Normal recent/remote memory, concentration, and general fund of knowledge. -? Language: speech is fluent.? Naming, repetition, fluency, and comprehension intact. -? Cranial Nerves: PERRL 3 mm/brisk. EOMI, visual bray full, no facial asymmetry, facial sensation intact, hearing intact, tongue midline, no evidence of atrophy or fibrillations. As performed by the nurse/RICHARD Sternocleidomastoid and trapezius were equally strong. Soft palate raises equally, no uvular deviations -? Motor: normal bulk, tone, and strength throughout. No pronator drift or satelliting. Upper and lower extremities equal bilaterally. -? Detailed strength exam as performed by the nurse and witnessed by the physician: -? Tone: is normal and bulk is normal -? Sensation- Intact to light touch bilaterally -? Coordination: No dysmetria on [id number]-[id number]-waljmz, finger follow finger or [id number]. -? Gait- not checked Lab / Micro Data 03/18/24 06:25 03/18/24 06:25 Labs: Laboratory Results - last 24 hr 03/18/24 06:25: WBC 10.1, RBC 4.17 L, Hgb 12.7, Hct 37.9, MCV 90.9, MCH 30.5, MCHC 33.5, RDW Std Deviation 41.6, RDW Coeff of Bharath 12.5, Plt Count 263, MPV 9.6, Immature Gran % (Auto) 0.300, Neut % (Auto) 70.3 H, Lymph % (Auto) 19.9, Waller % (Auto) 8.7, Eos % (Auto) 0.4, Baso % (Auto) 0.4, Absolute Neuts (auto) 7.1, Absolute Lymphs (auto) 2.00, Nucleated RBC % 0, Sodium 137, Potassium 3.9, Chloride 104, Carbon Dioxide 28.0, Anion Gap 5, BUN 10, Creatinine 0.57, Estim Creat Clear Calc 53.62, Est GFR (MDRD) Af Amer 137, Est GFR (MDRD) Non-Af 114, BUN/Creatinine Ratio 17.6, Glucose 127 H, Calcium 9.3 Micro: Microbiology 03/16/24 14:43 Urine, Clean Catch Urine Culture - Final Klebsiella pneumoniae sp pneum Active Medications Active Medications Active Medications: Current Medications Generic Name Dose Route Start Last Admin Trade Name Freq PRN Reason Stop Dose Admin Acetaminophen 650 mg 03/16/24 19:26 Acetaminophen 325 Mg Tablet PO Q6H PRN PRN Pain 1-10 Or Fever >100.7 Albuterol Sulfate 2.5 mg 03/16/24 19:26 Albuterol 2.5 Mg/3 Ml Vial.Neb. INHALATION Q2H PRN PRN SOB &/OR WHEEZING Cephalexin 500 mg 03/16/24 19:26 03/18/24 10:12 Cephalexin 500 Mg Capsule PO 03/21/24 19:27 500 mg BID KATEY Administration Enoxaparin Sodium 40 mg 03/17/24 10:00 03/18/24 10:12 Enoxaparin 40 Mg/0.4 Ml Syringe SC 40 mg DAILY KATEY Administration Escitalopram Oxalate 20 mg 03/16/24 22:00 03/17/24 22:09 Escitalopram Oxalate 20 Mg Tablet PO 20 mg QHS KATEY Administration Hydralazine HCl 10 mg 03/16/24 19:26 03/17/24 22:13 Hydralazine 20 Mg/Ml Vial IV 10 mg Q6H PRN PRN Administration SBP>160 Protocol Sodium Chloride 250 mls @ 15 mls/hr 03/16/24 19:16 IV .[id number] PRN Additional IVPB Infusion Sodium Chloride 250 mls @ 15 mls/hr 03/16/24 19:16 IV .[id number] PRN Saline Flush Melatonin 3 mg 03/16/24 19:26 Melatonin 3 Mg Tablet PO QHS PRN PRN INSOMNIA Nicotine 7 mg 03/16/24 19:45 03/18/24 10:13 Nicotine 7 Mg Patch TD 7 mg DAILY KATEY Administration Ondansetron HCl 4 mg 03/16/24 19:26 03/17/24 23:44 Ondansetron 4 Mg/2 Ml Vial IV 4 mg Q8H PRN PRN Administration NAUSEA/VOMITING Oxycodone HCl 2.5 - 5 mg 03/16/24 19:26 Oxycodone 5 Mg Tablet PO Q4H PRN PRN Pain Score 4-10 Senna/Docusate Sodium 2 tablet 03/16/24 19:26 Senna/Docusate Sodium 1 Tablet PO BID PRN PRN Constipation Sodium Chloride 10 - 40 ml 03/16/24 19:16 0.9% Saline Lock 10 Ml Syringe IV UD PRN SALINE FLUSH Varenicline 1 mg 03/16/24 22:00 03/18/24 10:12 Varenicline 1 Mg Tablet PO 1 mg BID KATEY Administration
[2024-03-18] MEDS: LORazepam 1 MG Tablet PO (12:37)
--- NOTE | 2024-03-18 12:48 | CASEMGMT ---
SUE MARCANO into pt room to discuss dc planning. Pt states she lives alone in a single story home with 1 step to enter. Pt states she is I in ADLs and IADLs at home and has a walker in every room. Pt states in her kitchen she uses the counter to walk. Pt has had HHC in the past but states she does not need it now. She states she is strong and has done kept up with the exercises from her outpt therapy previously. She states her issue is not with the strength but with the disconnect from her brain to her legs. Pt is scheduled for a MRI. Nurse present in the room. Pt states she just ordered a w/c from [employer] and paid close to $400. Pt is aware that this SUE MARCANO can obtain a w/c for her through her insurance. She states [employer] does not accept insurance. Made pt aware she is correct but there are other [employer] companies that this could be obtained from. Pt states she just ordered it one hour ago. Asked pt if she wanted to call and see if she can cancel. Pt declines and states she already put it on her credit card and her realtor is bringing it to her within the hour. Pt states she is planning on selling her house and moving to [place] in [place]. Pt denies any homegoing needs at this time.
--- NOTE | 2024-03-18 13:30 | MRI_ITS ---
EXAM: MR HEAD WITHOUT INTRAVENOUS CONTRAST CLINICAL INDICATION: Weakness and inability to walk. TECHNIQUE: Multiplanar and multisequence MR images of the brain were obtained without intravenous contrast. COMPARISON: MRI brain with and without contrast 09/28/2022. FINDINGS: BRAIN AND EXTRA-AXIAL SPACES: No diffusion restriction to suspect acute or subacute ischemic infarct. No remote cortical-based ischemic infarct. No old lacunar infarcts. No intra- or extra-axial hemorrhage. No intracranial mass or mass effect. Posterior fossa structures are unremarkable. Ventricles are appropriate for age. No hydrocephalus. Basal cisterns are patent. SELLA: Unremarkable. Normal sella turcica, pituitary gland, infundibular stalk, optic chiasm and hypothalamus. AUDITORY SYSTEM: Unremarkable. The internal auditory canals are patent. BONES/JOINTS: Unremarkable. No discrete lytic or blastic abnormalities. SINUSES: Midline mucus retention cyst in the retropharyngeal space of the nasopharynx. Benign mucus retention cyst in the anterior wall of the right maxillary sinus. MASTOID AIR CELLS: Unremarkable as visualized. Clear. ORBITS: Unremarkable as visualized. Both globes, extraocular muscles, optic nerves and retrobulbar fat appear unremarkable. VASCULATURE: Unremarkable as visualized. Normal flow voids in the major intracranial circulation. MRI/Brain without Contrast IMPRESSION: 1. No MRI evidence of acute or subacute ischemic infarct or remote cortical-based ischemic infarct. 2. No significant interval change when compared to 09/28/2022. Electronically Signed: Tucker Stevens MD at 15:16 EDT ,
[2024-03-18 14:54] VITALS: BP 108/60; PULSE 71; RESP 16; TEMP 36.7; O2SAT 98
[2024-03-18] MEDS: Escitalopram Oxalate 20 MG Tablet PO (21:36)
[2024-03-18 21:40] VITALS: BP 127/80; PULSE 66; RESP 16; TEMP 36.5; O2SAT 100
[2024-03-19 03:36] VITALS: BP 150/84; PULSE 66; RESP 16; TEMP 36.7; O2SAT 97
[2024-03-19 07:27] LABS: Absolute Neutrophil Count 5.6 X10^3/uL (2.0-7.7); Basophil# 0.07 X10^3/uL; Basophil% 0.8 % (0-1); Eosinophil# 0.12 X10^3/uL; Eosinophils% 1.4 % (0-5); Hematocrit 36.1 % (37-47); Hemoglobin 12.3 g/dL (12.0-15.0); Lymphocyte % 22.8 % (19-41); Mean Corp Hgb Conc 34.1 g/dL (32-36); Mean Corpuscular Hgb 30.8 pg (27.0-32.0); Mean Corpuscular Volume 90.5 fL (81-99); Mean Platelet Vol. 9.9 fl (6.2-12.0); Monocyte# 0.94 X10^3/uL; Monocyte% 10.7 % (0-10); NRBC Flagged by Analyzer 0 % (0-5); Neutrophil # 5.62 X10^3/uL (2.7-7.7); Platelet Count 250 K/mm3 (150-450); RBC Distribution Width CV 12.4 % (11.6-14.6); Red Blood Count 3.99 M/mm3 (4.2-5.4); White Blood Count 8.8 K/mm3 (4.4-11.0)
[2024-03-19 08:20] LABS: Anion Gap 4 (5-15); BUN 12 mg/dL (7-18); Calcium,Total 8.8 mg/dL (8.5-10.1); Chloride 103 mmol/L (98-107); EST Glomerular Filtration Rate 107 mL/min (>60); Est Glom Filt Rate - Afr Amer 129 mL/min (>60); Estimated Creatinine Clearance 53.62 ml/min; Glucose 104 mg/dL (74-106); Potassium 3.9 mmol/L (3.5-5.1); Sodium Level 136 mmol/L (136-145)
[2024-03-19 09:04] VITALS: BP 126/75; PULSE 76; RESP 16; TEMP 37.1; O2SAT 98
[2024-03-19] MEDS: Cephalexin 500 MG Capsule PO (09:15)
[2024-03-19] MEDS: Vibegron 75 MG TABLET PO (09:15)
[2024-03-19] MEDS: Varenicline 1 MG Tablet PO (09:15)
[2024-03-19 12:38] LABS: Bacteria 0 SEEN /hpf (None Seen); Mucous, Urine 0 SEEN /hpf (<or=2+); White Blood Cells 0 SEEN /hpf (0-5)
--- NOTE | 2024-03-19 12:38 | PCM.DC.SUM ---
Providers Date of Admission: 03/16/24 Date of Discharge: 03/19/24 Primary Care Physician: Dr. Wilmer Diaz MD Consultations 03/17/24 09:52 Tele [Consult: Tele-Neurology] Routine Consulting Provider: [facility] Reason for Consult: gait immobility EMERGENT Consult: No MD Notified: Yes Date Notified: 03/17/24 Time Notified: 11:54 Method of Notification: Answering Service Comments:: Dr. Jasso covering Nursing Unit Staff Notify [facility] of Tele-Neurology Consult: Yes Reason For Visit: UNABLE TO AMBULATE Diagnosis Discharge Diagnosis (1) Weakness: Status: Acute Code(s): R53.1 - Weakness Plan #Bilateral lower extremity weakness says she had bilateral lower extremity weakness and unable to ambulate. she has had lower extremity weakness for several years and follows up with neurology she has a history of cervical spinal stenosis and lumbar spinal stenosis and has had surgery for both cervical and lumbar stenosis she has had MRI of the brain in July 2023 which showed no evidence of MS. follows with neurology on outpatient basis and no evidence of MS per neurology. Her lower extremity weakness was thought to be multifactorial PT/OT on board neurology consulted; awaiting rec's she feels much better today cervical spine and lumbar spine MRI are pending. orthopedic surgery reviewed patient and is awaiting the lumbar MRI. fall precautions #UTI complained of frequency on admission on Keflex. Patient says she also has urinary incontinence. urine cultures growing Klebsiella sensitive to ceftriaxone. Continue on Keflex #History of psoriatic arthritis: stable. #Urinary incontinence: on gemtesa #Degenerative disc disease s/p cervical fusion of C5-6 and C6-7 in 2001. Had lumbar surgery :4-5 with fusion in November 2023. Pt.OT on board. Fall precautions #Nicotine dependence: on chantix. Nicotine patch daily. DVT prophylaxis: lovenox Medications at Discharge Home Medications cholecalciferol (vitamin D3) 50 mcg (2,000 unit) capsule 50 mcg PO DAILY SUPPLEMENT 08/03/20 gdxlaigqqzen-Bh-zhww-minerals 27 mg-0.4 mg tablet (One Daily Women's) 1 tab PO DAILY SUPPLEMENT 01/10/21 ixekizumab 80 mg/mL subcutaneous auto-injector (Taltz Autoinjector) 80 mg subcut Q4W PSORIATIC ARTHRITIS 08/07/23 calcium 650 mg-vitamin D3 12.5 mcg-vitamin K 40 mcg chewable tablet (Viactiv) 1 tab PO DAILY SUPPLEMENT 10/19/23 escitalopram oxalate 20 mg tablet 20 mg PO QHS ANTIDEPRESSANT #30 tabs 10/31/23 varenicline 1 mg tablet (Chantix) 1 mg PO BID SMOKING CESSATION 12/04/23 vibegron 75 mg tablet (Gemtesa) 75 mg PO DAILY 03/16/24 cefdinir 300 mg capsule 300 mg PO BID #10 caps 03/19/24 Hospital Course Operations None Procedures None Summary of Care Provided Minutes Spent on Discharge: 55 Hospital Course: Patient is a 64-year-old female with a past medical history as outlined was admitted through the ED on 03/16/2024 with a complaint of inability to ambulate. Patient had chronic lower extremity weakness and says she had been having left leg weakness and recently her right leg had also started becoming weak. She had had back surgery in November 2023 and said her lower extremity weakness had been getting weaker. She denied any urinary incontinence, saddle anesthesia, tingling or numbness or urinary retention. She does admit to a history of chronic lower extremity weakness and had been following up with neurology on outpatient basis. She was admitted and managed for debility due to weakness and inability to ambulate. Patient was concerned about MS though this admission ruled out on outpatient basis by her neurologist after she had MRIs done. Urinalysis showed 1+ bacteria. Neurology was consulted. She had MRI of the brain without contrast which showed no evidence of any acute pathology. Cervical spine MRI as well as lumbar spine MRI showed no acute pathology. It only showed evidence of previous surgeries was not any different from previous MRIs. Neurology reviewed patient and recommended that she could be discharged to follow-up on outpatient basis for further workup as needed by her neurologist. Patient worked with physical therapy was able to ambulate a bit and wanted to go home using a wheelchair. She was therefore discharged home on 03/19/2024. She is follow-up with her primary care doctor and with neurology on outpatient basis. She was given a prescription for p.o. cefdinir 300 mg twice daily for 5 days for UTI. Patient seen and examined prior to discharge. She had no complaints and had an uneventful night. Review of systems otherwise negative. Labs and vitals reviewed. Home medication reviewed and reconciled. Physical Exam Const alert, oriented x3 and no apparent distress Constitutional Narrative: anxious General Appearance: cooperative HEENT normocephalic, head/scalp atraumatic, hearing grossly normal bilaterally, moist oral mucous membranes and oropharynx normal Eyes PERRL and EOMs intact bilaterally Eyes Narrative: No scleral icterus Neck no lymphadenopathy and supple Lymph Lymphatic: no lymphadenopathy noted and no lymphedema noted Resp normal respiratory effort, normal air movement, no retractions, no use of accessory muscles and clear to auscultation bilaterally Auscultation: Negative for rales, rhonchi or wheezes Cardio regular rate, regular rhythm, S1 normal heart sound, S2 normal heart sound, no murmurs, no rub, no gallops and no clicks GI normal to inspection, nondistended, normoactive bowel sounds, soft to palpation, non-tender and non-distended Extremity normal capillary refill, no clubbing, cyanosis or edema and no calf tenderness Extremity Narrative: Decreased lean muscle mass General Extremity: no tenderness to palpation of joints or extremities Skin no rashes or lesions noted General Skin Exam: no breakdown Neuro oriented x3, CN's II-XII intact bilaterally, moves all extremities, no focal motor deficits, no sensory deficits noted and deep tendon reflexes 2+ bilaterally Neuro Narrative: power in lower extremities is 5/5, reflexes in lower extremities normal. Normal sensation Speech: speech normal Motor Exam: general weakness Psych thought process normal Mood & Affect: anxious Weight / BMI Weight Weight: 108 lb 4 oz Body Mass Index (BMI) 18.6 ABG / Lab / Microbiology Data 03/19/24 06:50 03/19/24 06:50 Laboratory: Laboratory Results - last 24 hr 03/19/24 06:50: WBC 8.8, RBC 3.99 L, Hgb 12.3, Hct 36.1 L, MCV 90.5, MCH 30.8, MCHC 34.1, RDW Std Deviation 41.0, RDW Coeff of Bharath 12.4, Plt Count 250, MPV 9.9, Immature Gran % (Auto) 0.300, Neut % (Auto) 64.0, Lymph % (Auto) 22.8, [place] % (Auto) 10.7 H, Eos % (Auto) 1.4, Baso % (Auto) 0.8, Absolute Neuts (auto) 5.6, Absolute Lymphs (auto) 2.00, Nucleated RBC % 0, Sodium 136, Potassium 3.9, Chloride 103, Carbon Dioxide 29.0, Anion Gap 4 L, BUN 12, Creatinine 0.60, Estim Creat Clear Calc 53.62, Est GFR (MDRD) Af Amer 129, Est GFR (MDRD) Non-Af 107, BUN/Creatinine Ratio 20.0, Glucose 104, Calcium 8.8 Microbiology: Microbiology 03/16/24 14:43 Urine, Clean Catch Urine Culture - Final Klebsiella pneumoniae sp pneum 03/16/24 14:43 Mucosa - Nose SARS-CoV-2, Influenza & RSV (PCR) - Final Radiography Diagnostic Testing: Radiology Impression Cervical Spine MRI 03/17/24 18:00 IMPRESSION: Stable examination. Stable mild central and foraminal stenoses at C6-7 due to spondylitic changes. Electronically Signed: Derik Membreno MD at 19:22 EDT , Lumbar Spine MRI 03/17/24 18:00 IMPRESSION: Surgical changes from posterior lumbar fusion with hardware at L4-5. Decreased central stenosis at L4-5 with persistent bilateral foraminal encroachment. Stable small central disc protrusion at T12-L1. Electronically Signed: Derik Membreno MD at 17:14 EDT , Brain MRI 03/18/24 13:30 IMPRESSION: 1. No MRI evidence of acute or subacute ischemic infarct or remote cortical-based ischemic infarct. 2. No significant interval change when compared to 09/28/2022. Electronically Signed: Tucker Stevens MD at 15:16 EDT , D/C Instructions Discharge Diet: Low fat / Low cholesterol Discharge Activity: Return to Normal Activity Weight Bearing Status: Weight bearing as tolerated Call your doctor if you observe: Fever of 101 or Higher, Shortness of breath, Dizziness, Swelling in the ankles and Chest pain Meaningful Use Info Meaningful Use Meaningful Use Diagnoses (Choose all that apply): None applicable Ischemic Stroke Statin Dosing Therapy Reference: STATIN DOSE THERAPY REFERENCE: * Patients > 75 years receive moderate or high dose statin therapy. * Patients 75 years or YOUNGER should receive HIGH intensity statin dose unless contraindicated. You will be required to document reason for non-treatment if statin daily dose does not meet guidelines. HIGH DOSE STATIN THERAPY DAILY Atorvastatin > than or = to 40 mg Rosuvastatin > than or = to 20 mg Amlodipine + Atorvastatin > than or = to 2.5/40 mg Ezetimibe + Simvastatin 10/80 mg Simvastatin 80mg Discharge Plan Admission Admit Date/Time: 03/16/24 17:37 Primary Reason for Your Visit: debility and weakness Attending Provider: Grecia Liriano Primary Care Provider: Wilmer Diaz Consulting Providers: Shabnam Arias; Jerry Loza; April Espinosa; Karen Oakley; Alexandra Garnett; Tori Francisco; Juanjo Chung; Janis Lynn; Jeronimo Alvarez; Brayden Carter; Juan Stephenson; Lori Jasso; John Eubanks; Pili Orosco; Bekah Harvey; Hieu Dillon; Blaze Licona; Niya Nicole; John Prado; Emily Arias; Danny Sanders Instructions Patient Instructions: ED Weakness (Uncertain Cause) Discharge Orders/Prescriptions Prescriptions: New cefdinir 300 mg capsule 300 mg PO BID Qty: 10 0RF Continued cholecalciferol (vitamin D3) 50 mcg (2,000 unit) capsule 50 mcg PO DAILY One Daily Women's 27-0.4 mg tablet 1 tab PO DAILY Taltz Autoinjector 80 mg/mL auto-injector 80 mg subcut Q4W Patient Comments: WAS DUE ON 03/14/24 calcium-vitamin D3-vitamin K [Viactiv] 650 mg-12.5 mcg-40 mcg tablet,chewable 1 tab PO DAILY varenicline [Chantix] 1 mg tablet 1 mg PO BID Gemtesa 75 mg tablet 75 mg PO DAILY escitalopram oxalate 20 mg tablet 20 mg PO QHS Qty: 30 4RF Referrals / Follow Up: Wilmer Diaz MD [Primary Care Provider] - Within 2 Weeks Jonnathan Akers MD [Non-Staff -Ordering Privileges] - Within 2 Weeks Disposition Disposition (needs filled in before D/C Order can be placed): Home, Self Care Charges/Coding Visit Charges Inpatient E&M: 03110 Disch Hosp >30min
[2024-03-19 12:51] LABS: Color, Urine Yellow (Yellow); Glucose, Dipstick Normal (Normal); Ketone-Dipstick Negative (Negative); Leukocyte Esterase-Dipstick Negative /ul (Negative); Nitrite-Dipstick Negative (Negative); Occult Blood-Urine 10 /ul (Negative); Protein-Dipstick Negative (Negative); Urine Bilirubin Dipstick Negative (Negative); Urine Clarity Clear (Clear); Urine Urobilinogen 1 mg/dl (Normal)
[2024-03-19 12:57] LABS: Red Blood Cells-Urine 0-5 SEEN /hpf (0-5); Squamous Epithelial Cells - UA 0-5 SEEN /hpf (5-10)
--- NOTE | 2024-03-19 13:05 | PN.ORTHO_ITS ---
Subjective Subjective Patient sitting in bed. She underwent neurology consultation and multiple MRIs. Being planned to be discharged today. No new symptoms. Objective Data Objective Data Vital Signs: Vital Signs Temp Pulse Resp BP Pulse Ox O2 Del Method 98.8 F 76 16 126/75 H 98 Room Air 03/19/24 09:04 03/19/24 09:04 03/19/24 09:04 03/19/24 09:04 03/19/24 09:04 03/19/24 09:04 Oxygen Delivery Method Room Air Weight: 108 lb 4 oz Body Mass Index (BMI) 18.6 Intake & Output: Intake and Output for Last 24 Hours 03/17/24 03/18/24 03/19/24 23:59 23:59 23:59 Intake Total 500 / 700 200 / 500 500 / 500 Output Total 400 / 400 Balance 100 / 300 200 / 500 500 / 500 Lab / Micro Data 03/19/24 06:50 03/19/24 06:50 Labs: Laboratory Results - last 24 hr 03/19/24 06:50: WBC 8.8, RBC 3.99 L, Hgb 12.3, Hct 36.1 L, MCV 90.5, MCH 30.8, MCHC 34.1, RDW Std Deviation 41.0, RDW Coeff of Bharath 12.4, Plt Count 250, MPV 9.9, Immature Gran % (Auto) 0.300, Neut % (Auto) 64.0, Lymph % (Auto) 22.8, [place] % (Auto) 10.7 H, Eos % (Auto) 1.4, Baso % (Auto) 0.8, Absolute Neuts (auto) 5.6, Absolute Lymphs (auto) 2.00, Nucleated RBC % 0, Sodium 136, Potassium 3.9, Chloride 103, Carbon Dioxide 29.0, Anion Gap 4 L, BUN 12, Creatinine 0.60, Estim Creat Clear Calc 53.62, Est GFR (MDRD) Af Amer 129, Est GFR (MDRD) Non-Af 107, BUN/Creatinine Ratio 20.0, Glucose 104, Calcium 8.8 03/19/24 12:31: Urine Color Yellow, Urine Clarity Clear, Urine pH 7.0, Ur Specific [place] 1.010, Urine Protein Negative, Urine Glucose (UA) Normal, Urine Ketones Negative, Urine Occult Blood 10 H, Urine Nitrite Negative, Urine Bilirubin Negative, Urine Urobilinogen 1 H, Ur Leukocyte Esterase Negative, Urine RBC 0-5 SEEN, Urine WBC 0 SEEN, Ur Squamous Epith Cells 0-5 SEEN, Urine Bacteria 0 SEEN, Urine Mucus 0 SEEN Micro: Microbiology 03/16/24 14:43 Urine, Clean Catch Urine Culture - Final Klebsiella pneumoniae sp pneum 03/16/24 14:43 Mucosa - Nose SARS-CoV-2, Influenza & RSV (PCR) - Final Radiography Diagnostic Testing: Radiology Impression Cervical Spine MRI 03/17/24 18:00 IMPRESSION: Stable examination. Stable mild central and foraminal stenoses at C6-7 due to spondylitic changes. Electronically Signed: Derik Membreno MD at 19:22 EDT , Lumbar Spine MRI 03/17/24 18:00 IMPRESSION: Surgical changes from posterior lumbar fusion with hardware at L4-5. Decreased central stenosis at L4-5 with persistent bilateral foraminal encroachment. Stable small central disc protrusion at T12-L1. Electronically Signed: Derik Membreno MD at 17:14 EDT , Brain MRI 03/18/24 13:30 IMPRESSION: 1. No MRI evidence of acute or subacute ischemic infarct or remote cortical-based ischemic infarct. 2. No significant interval change when compared to 09/28/2022. Electronically Signed: Tucker Stevens MD at 15:16 EDT , Physical Exam Narrative No change in neurologic exam. Assessment & Plan Assessment/Plan (1) Weakness: PLAN: Plan Reviewed patient's MRI lumbar and cervical spine. Lumbar spine shows good interval improvement in L4-5 canal space with resolution of stenosis. No new areas of stenosis noticed. Cervical spine MRI is also unchanged from previous MRI earlier this year with no new areas of cord compression or cord signal changes. Explained to patient my findings on the imaging. She has healed well from the lumbar surgery with good resolution of stenosis. At this point, I do not have anything available in the imaging that I could explain could be the source of her new onset weakness. I would rely on neurology continued assessment for further treatment. Patient will see me back in clinic for his 6-month follow-up in May. Patient was in agreement.
--- NOTE | 2024-03-19 14:12 | CASEMGMT ---
SUE MARCANO NOTE: Discharge order is in. SUE MARCANO to room. Introduced self and role. Pt sitting on edge of bed. W/C that she ordered has arrived and is in her room. Rx for Atb has been e-scribed to [facility] retail pharmacy and pt requests for it to be delivered to her room. Call placed to [facility] retail pharmacy and they were made aware. Pt states her son will be picking her up after work and will not be arriving until around 5 or 6 PM and she would like to be transported to hospital exit location using her own W/C. SUE Givens, notified. She continues to deny need for HHC or OP therapy and denies having any further discharge needs/concerns. Sophy COWAN RN CM
--- NOTE | 2024-03-19 14:34 | PHA.DC_ITS ---
Pharmacy [facility] has performed discharge medication reconciliation and counseling for this patient. 1. CEFDINIR 300MG PO BID X 5 DAYS The patient's discharge medication list was reviewed for discrepancies and discrepancies were resolved. The patient was counseled on the following discharge medications and changes in medications for homegoing were reviewed. The Reason for Use, instructions for use, and potential side effects were reviewed for all new medications. The patient's questions regarding all of their medications were answered. The patient was able to verbally demonstrate an understanding of their discharge medications. Medications at Discharge Home Medications cholecalciferol (vitamin D3) 50 mcg (2,000 unit) capsule 50 mcg PO DAILY SUPPLEMENT 08/03/20 pvnugkjuhfkt-Rx-zmaz-minerals 27 mg-0.4 mg tablet (One Daily Women's) 1 tab PO DAILY SUPPLEMENT 01/10/21 ixekizumab 80 mg/mL subcutaneous auto-injector (Taltz Autoinjector) 80 mg subcut Q4W PSORIATIC ARTHRITIS 08/07/23 calcium 650 mg-vitamin D3 12.5 mcg-vitamin K 40 mcg chewable tablet (Viactiv) 1 tab PO DAILY SUPPLEMENT 10/19/23 escitalopram oxalate 20 mg tablet 20 mg PO QHS ANTIDEPRESSANT #30 tabs 10/31/23 varenicline 1 mg tablet (Chantix) 1 mg PO BID SMOKING CESSATION 12/04/23 vibegron 75 mg tablet (Gemtesa) 75 mg PO DAILY 03/16/24 cefdinir 300 mg capsule 300 mg PO BID #10 caps 03/19/24
[2024-03-19 14:50] VITALS: BP 126/89; PULSE 77; RESP 16; TEMP 36.7; O2SAT 100
== END 2024-03-19 17:25 | disposition home or self-care (01) ==
LOC: ED 17:28 → MS3 17:45
PROVIDERS: Admitting Provider Internal Medicine; Emergency Provider Emergency Medicine; PCP Family Medicine; Visit Provider Student in an Organized Health Care Education/Training Program
DX: R53.1 Weakness (principal); L40.50 Arthropathic psoriasis, unspecified; J43.9 Emphysema, unspecified; J44.89 Other specified chronic obstructive pulmonary disease; I10 Essential (primary) hypertension; R29.898 Other symptoms and signs involving the musculoskeletal system; R26.2 Difficulty in walking, not elsewhere classified; R73.9 Hyperglycemia, unspecified; F17.210 Nicotine dependence, cigarettes, uncomplicated; Z98.1 Arthrodesis status; Z79.899 Other long term (current) drug therapy; R32 Unspecified urinary incontinence; R20.2 Paresthesia of skin; N39.0 Urinary tract infection, site not specified; B96.1 Klebsiella pneumoniae [K. pneumoniae] as the cause of diseases classified elsewhere
CPT/HCPCS: 36415; 70450; 70551; 72040; 72141; 72148; 74177; 80048; 80053; 81001; 82607; 83690; 83735; 84100; 84443; 84484; 85025; 87077; 87086; 87088; 87186; 87631; 93005; 94668; 96361; 96372; 96374; 96375; 97110; 97162; 97166; 97530; 99221; 99252; 99284; J7030; Q9967; A4216; G0378; G0463; J2405

== ENCOUNTER → 2024-05-07 | Outpatient (CLI) | payer MEDICARE, SELFPAY ==
--- NOTE | 2024-05-07 13:34 | NEURO ---
NCS and/or EMG Patient Report Ordering Doctor: Wilmer Diaz DATE OF SERVICE: 05/07/24 Serena presents with complaints of low back pain and left leg weakness. She reports lumbar fusion in November 2023. Electrodiagnostic findings: Left peroneal motor nerve demonstrates normal distal latency with normal amplitude normal conduction velocity when measured at the tib anterior. Right peroneal motor nerve demonstrates normal distal latency with normal amplitude with borderline reduced conduction velocity. Tibial motor response is within normal limits bilaterally. Normal tibial and peroneal F?waves. Borderline prolonged H?reflux bilaterally. Sensory responses are within normal limits. Needle EMG testing was performed in the lower limbs. Left peroneus longus and tibialis anterior demonstrated 1+ fibrillation potentials. 1+ fibrillation potentials noted in the left lower lumbar paraspinals. Decreased recruitment pattern noted in the left peroneus longus. The gastrocnemius demonstrated no evidence of denervation with normal motor unit action potentials. Due to poor tolerance of the examination, no further testing on the right leg was performed. Electrodiagnostic impression: This is an abnormal study. 1. Electrodiagnostic findings are suggestive of acute left-sided L5 radiculopathy. 2. There is no electrodiagnostic evidence for peripheral polyneuropathy. Multi Select Codes Neurology Neurology Interp Codes: 23793-23 EMG, Limited, 61026-12 Musc test done w/n test comp (interp) and 69614-63 Nrv cndj test 11-12 studies (interp)
== END | disposition home or self-care (01) ==
LOC: PSN 11:59
PROVIDERS: PCP Family Medicine; Referring Provider Family Medicine; Visit Provider Family Medicine
DX: R26.81 Unsteadiness on feet (principal)
CPT/HCPCS: 95885; 95886; 95912

== ENCOUNTER → 2024-05-29 | Outpatient (CLI) | payer MEDICARE, SELFPAY ==
--- NOTE | 2024-05-29 13:35 | RAD_ITS ---
HISTORY: L HIP PAIN. TECHNIQUE: XR Pelvis 1 or 2 Views. COMPARISON: 09/13/2023. FINDINGS: OSSEOUS STRUCTURES: No acute displaced fracture identified. Note that overlapping bowel shadows may obscure osseous detail. Interval L4-5 spinal fusion. JOINT SPACES: No dislocation. Mild degenerative change. SOFT TISSUES: Right pelvic surgical clips again seen. RAD/Pelvis 1 or 2 Views IMPRESSION: No acute displaced fracture or dislocation identified. Electronically Signed: Hazel Atkins MD at 14:26 EDT ,
== END | disposition home or self-care (01) ==
LOC: RAD 13:33
PROVIDERS: PCP Family Medicine; Referring Provider Anesthesiology; Visit Provider Anesthesiology
DX: M25.552 Pain in left hip (principal)
CPT/HCPCS: 72170

== ENCOUNTER → 2024-11-13 | Outpatient (CLI) | payer MEDICARE, SELFPAY ==
[2024-11-13 15:00] LABS: Mucous, Urine 0 SEEN /hpf (<or=2+); Red Blood Cells-Urine 0 SEEN /hpf (0-5)
[2024-11-13 17:58] LABS: Absolute Lymphocyte Count 2.45 X10^3/uL (0.83-4.51); Absolute Neutrophil Count 5.7 X10^3/uL (2.0-7.7); Basophil# 0.06 X10^3/uL; Basophil% 0.7 % (0-1); Eosinophil# 0.07 X10^3/uL; Eosinophils% 0.8 % (0-5); Hematocrit 39.6 % (37-47); Hemoglobin 13.3 g/dL (12.0-15.0); Lymphocyte # 2.45 X10^3/ul (0.83-4.51); Lymphocyte % 27.4 % (19-41); Mean Corp Hgb Conc 33.6 g/dL (32-36); Mean Corpuscular Hgb 31.3 pg (27.0-32.0); Mean Corpuscular Volume 93.2 fL (81-99); Monocyte# 0.62 X10^3/uL; Monocyte% 6.9 % (0-10); NRBC Flagged by Analyzer 0 % (0-5); Neutrophil % 63.9 % (47-70); Platelet Count 298 K/mm3 (150-450); RBC Distribution Width CV 11.7 % (11.6-14.6); RBC Distribution Width SD 40.1 fl (35.1-43.9); Red Blood Count 4.25 M/mm3 (4.2-5.4); White Blood Count 8.9 K/mm3 (4.4-11.0)
[2024-11-13 18:28] LABS: AST(SGOT) 20 U/L (<=31); Alanine Aminotransfer ALT/SGPT 19 U/L (<=34); Albumin, Serum 4.7 g/dL (3.4-4.8); Alkaline Phosphatase 68 U/L (35-104); Anion Gap 11 (5-15); BUN 13 mg/dL (4-19); BUN/Creat Ratio 17.1 RATIO (10-20); Calcium,Total 9.6 mg/dL (7.6-11.0); Carbon Dioxide 27.7 mmol/L (21.0-32.0); Chloride 102 mmol/L (98-108); Creatinine, Serum 0.76 mg/dL (0.70-1.20); EST Glomerular Filtration Rate 87 (>60); Globulin 2.3 g/dL (2.2-4.2); Glucose 104 mg/dL (70-99); Potassium 4.4 mmol/L (3.3-5.1); Sodium Level 140 mmol/L (133-145); Total Bilirubin 0.41 mg/dL (0.00-1.30)
[2024-11-14 18:22] LABS: Color, Urine Yellow (Yellow); Glucose, Dipstick Normal (Normal); Ketone-Dipstick Negative (Negative); Leukocyte Esterase-Dipstick Negative /ul (Negative); Nitrite-Dipstick Positive (Negative); Occult Blood-Urine 10 /ul (Negative); Protein-Dipstick 15 mg/dl (Negative); Specific Gravity, Urine 1.015 (1.002-1.030); Urine Bilirubin Dipstick Negative (Negative); Urine Clarity Clear (Clear); Urine Urobilinogen Normal (Normal)
[2024-11-14 18:45] LABS: White Blood Cells 5-10 SEEN /hpf (0-5)
[2024-11-14 18:46] LABS: Amorphous Sediment 1+ URATE; Bacteria 1+ /hpf (None Seen); Squamous Epithelial Cells - UA 0-5 SEEN /hpf (5-10)
== END | disposition home or self-care (01) ==
LOC: MFPLAB 14:55
PROVIDERS: PCP Family Medicine; Referring Provider Family Medicine; Visit Provider Family Medicine
DX: R82.81 Pyuria (principal); F17.210 Nicotine dependence, cigarettes, uncomplicated
CPT/HCPCS: 36415; 80053; 81001; 85025; 87086

== ENCOUNTER → 2024-12-10 | Outpatient (CLI) | payer MEDICARE, SELFPAY ==
--- NOTE | 2024-12-10 13:34 | CT_ITS ---
PROCEDURE: LOW DOSE CT LUNG SCREENING 12/10/2024 REASON FOR EXAM: SMOKER TECHNIQUE: Low Dose CT Lung screening without contrast. Coronal and Sagittal reconstruction series were provided. One or more dose reduction techniques were used (e.g., Automated exposure control, adjustment of the mA and/or kV according to patient size, use of iterative reconstruction technique). [facility] RAD[facility] DOSE SUMMARY: CTDlvol: 2.01 mGy DLP: 71.48 mGycm COMPARISON: Prior study dated October 18, 2023. FINDINGS: PULMONARY NODULES: (Only nodules >3mm are reported) Nodules described below are on series 1 unless otherwise specified. Pulmonary Nodules: None Hardware:None. Stable bilateral breast implants. Lymph Nodes:No lymph nodes are seen. Heart and Vasculature:Coronary artery calcifications are noted. Coronary Artery Calcifications: Present Lungs and Airways: Mild emphysematous changes are present. Stable scarring at the lung apices. New focal area of increased reticular nodular markings in the lateral aspect of the lingular segment of the left upper lobe as seen on axial image number 122. This most likely represents a focal area of scarring. Pleura:Unremarkable Upper Abdomen:Unremarkable Bones:Degenerative changes of the thoracic spine. CT/Low Dose CT Lung Screening IMPRESSION: Scarring at the lung apices. Increased reticular nodular changes seen in the lateral aspect of the left uppe r lobe as seen on axial image number 122 through 125. Coronary artery calcification (CAC) is is present Lung-RADS Category: 2 BENIGN (BASED ON IMAGING FEATURES OR INDOLENT BEHAVIOR). RECOMMEND 12-MONTH SCREENING LDCT. Other Significant Findings: None. Reading Location: [facility]
--- NOTE | 2024-12-10 13:57 | BD_ITS ---
PROCEDURE: DEXA BONE DENSITY STUDY 12/10/2024 REASON FOR EXAM: F, age 64 y/o . Postmenopausal. TECHNIQUE: DXA scan of sites with data reported below. REFERENCE LINKS: [facility] Adult Positions COMPARISON: Prior study dated August 01, 2022. FINDINGS: BMD and T-SCORES Lumbar spine: 1.004 g/cm2, T-score -0.1 Levels: L1 through L4 Change from prior: Improved by 0.7%. Left femoral neck: 0.521 g/cm2, T-score -3.0 Femoral neck comparison data not recommended for monitoring change. Left total hip: 0.617 g/cm2, T-score -2.7 Change from prior: Worsening by 13.3%. Right femoral neck: 0.562 g/cm2, T-score -2.6 Femoral neck comparison data not recommended for monitoring change. Right total hip: 0.615 g/cm2, T-score -2.7 Change from prior: Worsening by 12.3%. The World Health Organization has defined the following categories based on bone density: Normal bone density: T-score equal to or greater than -1.0 Osteopenia: T-score between -1.0 and -2.5 Osteoporosis: T-score equal to or less than -2.5 The patient does meet the pharmacological treatment recommendations for prevention of osteoporosis. BD/Dexa Bone Density Study IMPRESSION: OSTEOPOROSIS. Recommend follow-up as clinically warranted. Reading Location: [id number]
== END | disposition home or self-care (01) ==
PROVIDERS: PCP Family Medicine; Referring Provider Family Medicine; Visit Provider Family Medicine
DX: Z12.2 Encounter for screening for malignant neoplasm of respiratory organs (principal); Z78.0 Asymptomatic menopausal state; R82.81 Pyuria; M81.0 Age-related osteoporosis without current pathological fracture; F17.210 Nicotine dependence, cigarettes, uncomplicated
CPT/HCPCS: 71271; 77080; 87077; 87086; 87088; 87186

== ENCOUNTER → 2025-05-12 | Outpatient (CLI) | payer MEDICARE, SELFPAY ==
[2025-05-12 15:15] LABS: Mucous, Urine 0 SEEN /hpf (<or=2+)
[2025-05-12 18:38] LABS: Hematocrit 40.3 % (37-47); Hemoglobin 13.5 g/dL (12.0-15.0); Immature Granulocytes Count 0.020 X10^3/uL (0.0-0.0); Mean Corp Hgb Conc 33.5 g/dL (32-36); Mean Corpuscular Volume 91.2 fL (81-99); Mean Platelet Vol. 10.4 fl (6.2-12.0); NRBC Flagged by Analyzer 0 % (0-5); Platelet Count 300 K/mm3 (150-450); RBC Distribution Width CV 12.2 % (11.6-14.6); RBC Distribution Width SD 41.0 fl (35.1-43.9); Red Blood Count 4.42 M/mm3 (4.2-5.4); White Blood Count 8.4 K/mm3 (4.4-11.0)
[2025-05-12 18:43] LABS: Color, Urine Straw (Yellow); Glucose, Dipstick Normal (Normal); Ketone-Dipstick Negative (Negative); Leukocyte Esterase-Dipstick 25 /ul (Negative); Nitrite-Dipstick Negative (Negative); Occult Blood-Urine 10 /ul (Negative); Protein-Dipstick 15 mg/dl (Negative); Specific Gravity, Urine 1.020 (1.002-1.030); Urine Bilirubin Dipstick Negative (Negative)
[2025-05-12 19:21] LABS: AST(SGOT) 21 U/L (<=31); Alanine Aminotransfer ALT/SGPT 17 U/L (<=34); Albumin, Serum 4.7 g/dL (3.4-4.8); Alkaline Phosphatase 69 U/L (35-104); Anion Gap 10 (5-15); BUN 11 mg/dL (4-19); BUN/Creat Ratio 16.1 RATIO (10-20); Calcium,Total 9.6 mg/dL (7.6-11.0); Carbon Dioxide 28.2 mmol/L (21.0-32.0); Chloride 103 mmol/L (98-108); Globulin 2.2 g/dL (2.2-4.2); Glucose 106 mg/dL (70-99); Potassium 5.0 mmol/L (3.3-5.1); Vitamin D,25 Hydroxy 56.7 ng/mL (30-100)
[2025-05-12 21:13] LABS: Red Blood Cells-Urine 0-5 SEEN /hpf (0-5); Squamous Epithelial Cells - UA 0-5 SEEN /hpf (5-10)
[2025-05-14 06:08] LABS: Prealbumin 21 mg/dL (10-36)
== END | disposition home or self-care (01) ==
LOC: MFPLAB 14:59
PROVIDERS: PCP Family Medicine; Visit Provider Family Medicine
DX: R73.09 Other abnormal glucose (principal); E46 Unspecified protein-calorie malnutrition; J45.909 Unspecified asthma, uncomplicated; M81.0 Age-related osteoporosis without current pathological fracture
CPT/HCPCS: 36415; 80053; 81001; 82306; 83036; 84134; 85025